=== PATIENT | male | born 1935 | race Caucasian/White ===

== ENCOUNTER 2016-08-20 09:24 | Inpatient (IN) | payer MEDICARE, BC ==
[2016-08-20] MEDS ORDERED: methylPREDNISolone SOD SUCCI 125 MG/2 ML VIAL IV STA (09:39)
[2016-08-20] MEDS ORDERED: ALBUTEROL NEBULIZED 2.5 MG/3 ML INHALATION STA (09:39)
[2016-08-20] MEDS ORDERED: IPRATROPIUM 0.5 MG/2.5 ML NEBU INHALATION STA (09:39)
[2016-08-20] MEDS ORDERED: SODIUM CHLORIDE 0.9% 1,000 ML IV STA (09:39)
[2016-08-20] MEDS ORDERED: SODIUM CHLORIDE 0.9% 500 ML IV STA (09:39)
--- NOTE | 2016-08-20 10:13 | ED ---
General Adult HPI - General Chief complaint: Shortness of Breath Stated complaint: cough,diff breathing Time Seen by Provider: 08/20/16 09:39 Source: patient, RN notes reviewed, old records reviewed Mode of arrival: wheelchair Limitations: no limitations - History of Present Illness Initial comments: This is an 81-year-old male the ER for evaluation of shortness of breath, shortness of cough and congestion. History of angina chest pain COPD. Patient coming in the ER today with increased cough and congestion, denying specific fever. No nausea vomiting diarrhea, no chest or abdominal pain at this time. Patient states symptoms of 2 days progressively worsening with no modifying factors. Patient was sent by his primary care for evaluation of his shortness of breath and patient was hypoxic at primary care office. Patient continues to be short of breath at this time - Related Data Home Medications Medication Instructions Recorded Confirmed Albuterol Nebulized [Ventolin 2.5 mg INHALATION RT-BID 08/20/16 08/20/16 Nebulized] Aspirin EC [Ecotrin Low Dose] 81 mg PO DAILY 08/20/16 08/20/16 Atorvastatin [Lipitor] 80 mg PO DAILY 08/20/16 08/20/16 Cholecalciferol [Vitamin D3] 1,000 unit PO DAILY 08/20/16 08/20/16 Clopidogrel Bisulfate [Plavix] 75 mg PO DAILY 08/20/16 08/20/16 Furosemide [Lasix] 20 mg PO MOWEFR 08/20/16 08/20/16 Ibuprofen [Motrin] 600 mg PO Q6HR PRN 08/20/16 08/20/16 Metoprolol Tartrate [Lopressor] 12.5 mg PO DAILY 08/20/16 08/20/16 Terazosin [Hytrin] 1 mg PO HS 08/20/16 08/20/16 Allergies Allergy/AdvReac Type Severity Reaction Status Date / Time No Known Allergies Allergy Verified 08/20/16 10:57 Review of Systems ROS Statement: Those systems with pertinent positive or pertinent negative responses have been documented in the HPI. ROS Other: All systems not noted in ROS Statement are negative. Past Medical History Past Medical History: Chest Pain / Angina, COPD History of Any Multi-Drug Resistant Organisms: None Reported Past Surgical History: Coronary Bypass/CABG, Heart Catheterization, Heart Catheterization With Stent Past Psychological History: No Psychological Hx Reported Smoking Status: Former smoker Past Alcohol Use History: None Reported Past Drug Use History: None Reported General Exam Limitations: no limitations General appearance: alert, in no apparent distress Head exam: Present: atraumatic, normocephalic, normal inspection Eye exam: Present: normal appearance, PERRL, EOMI. Absent: scleral icterus, conjunctival injection, periorbital swelling ENT exam: Present: normal exam, mucous membranes moist Neck exam: Present: normal inspection. Absent: tenderness, meningismus, lymphadenopathy Respiratory exam: Present: normal lung sounds bilaterally, wheezes, decreased breath sounds, prolonged expiratory. Absent: respiratory distress, rales, rhonchi, stridor Cardiovascular Exam: Present: regular rate, normal rhythm, normal heart sounds. Absent: systolic murmur, diastolic murmur, rubs, gallop, clicks GI/Abdominal exam: Present: soft, normal bowel sounds. Absent: distended, tenderness, guarding, rebound, rigid Extremities exam: Present: normal inspection, full ROM, normal capillary refill. Absent: tenderness, pedal edema, joint swelling, calf tenderness Back exam: Present: normal inspection Neurological exam: Present: alert, oriented X3, CN II-XII intact Psychiatric exam: Present: normal affect, normal mood Skin exam: Present: warm, dry, intact, normal color. Absent: rash Course Vital Signs 08/20/16 08/20/16 08/20/16 09:31 10:16 10:28 Temperature 97.9 F Pulse Rate 95 90 Respiratory 24 22 Rate Blood Pressure 100/58 O2 Sat by Pulse 91 L Oximetry 08/20/16 10:49 Temperature Pulse Rate 92 Respiratory Rate Blood Pressure O2 Sat by Pulse Oximetry EKG Findings - EKG Comments: EKG Findings:: EKG shows normal sinus rhythm rate of 87, SD 126, QRS 126, QTc 445 Medical Decision Making - Lab Data Result diagrams: 08/20/16 10:10 08/20/16 10:10 Lab Results 08/20/16 08/20/16 Range/Units 10:10 10:10 WBC 5.8 (3.8-10.6) k/uL RBC 4.53 (4.30-5.90) m/uL Hgb 13.5 (13.0-17.5) gm/dL Hct 40.4 (39.0-53.0) % MCV 89.2 (80.0-100.0) fL MCH 29.9 (25.0-35.0) pg MCHC 33.5 (31.0-37.0) g/dL RDW 14.8 (11.5-15.5) % Plt Count 123 L (150-450) k/uL Sodium 144 (137-145) mmol/L Potassium 4.1 (3.5-5.1) mmol/L Chloride 103 (98-107) mmol/L Carbon Dioxide 27 (22-30) mmol/L Anion Gap 14 mmol/L BUN 27 H (9-20) mg/dL Creatinine 1.13 (0.66-1.25) mg/dL Est GFR (MDRD) Af Amer >60 (>60 ml/min/1.73 sqM) Est GFR (MDRD) Non-Af >60 (>60 ml/min/1.73 sqM) Glucose 111 H (74-99) mg/dL Calcium 8.8 (8.4-10.2) mg/dL Magnesium 2.1 (1.6-2.3) mg/dL Total Bilirubin 0.9 (0.2-1.3) mg/dL AST 53 (17-59) U/L ALT 26 (21-72) U/L Alkaline Phosphatase 73 (38-126) U/L Total Protein 6.9 (6.3-8.2) g/dL Albumin 3.8 (3.5-5.0) g/dL Disposition Clinical Impression: Acute exacerbation of chronic obstructive airways disease, Hypoxia Disposition: ADMITTED IP TO THIS HOSP Condition: Fair Referrals: Pierre Lamar MD [Primary Care Provider] - 1-2 days
[2016-08-20 11:04] LABS: CH 29.6; CHCM 33.4; HCT 40.4 % (39.0-53.0); HDW 2.78; HGB 13.5 gm/dL (13.0-17.5); Immature Gran Flag Moderate; MCH 29.9 pg (25.0-35.0); MCHC 33.5 g/dL (31.0-37.0); MCV 89.2 fL (80.0-100.0); Mean Platelet Volume 9.3; RBC 4.53 m/uL (4.30-5.90); RDW 14.8 % (11.5-15.5); WBC 5.8 k/uL (3.8-10.6); WBC (Perox) 5.74
[2016-08-20 11:09] LABS: ALT 26 U/L (21-72); AST 53 U/L (17-59); Alkaline Phosphatase 73 U/L (38-126); Anion Gap 14 mmol/L; Blood Urea Nitrogen 27 mg/dL (9-20); Calcium 8.8 mg/dL (8.4-10.2); Carbon Dioxide 27 mmol/L (22-30); Chloride 103 mmol/L (98-107); Glucose 111 mg/dL (74-99); Magnesium 2.1 mg/dL (1.6-2.3); Non-African American GFR(MDRD) >60 (>60 ml/min/1.73 sqM); Potassium 4.1 mmol/L (3.5-5.1); Sodium 144 mmol/L (137-145); Total Bilirubin 0.9 mg/dL (0.2-1.3); Total Protein 6.9 g/dL (6.3-8.2)
[2016-08-20 11:10] LABS: INR 1.1 (<1.1); Prothrombin Time 10.7 sec (9.0-12.0)
--- NOTE | 2016-08-20 11:28 | XR ---
EXAMINATION TYPE: XR chest 2V DATE OF EXAM: 08/20/2016 11:17 AM COMPARISON: Prior chest x-ray October 07, 2015. HISTORY: History of COPD with difficulty in breathing. TECHNIQUE: Frontal and lateral views of the chest are obtained. FINDINGS: Sternal wires are redemonstrated. Cardiac silhouette size is stable and within normal limit s with atherosclerotic change in the aortic knob present. There is chronic emphysematous change with scattered fibrosis and small bilateral pleural effusions redemonstrated. There is persistent bibasila r scarring. No new focal airspace opacity or pneumothorax is seen bilaterally. Left apical pleural th ickening is redemonstrated. Osseous structures are demineralized. IMPRESSION: Chronic emphysematous change with scattered areas of scarring and fibrosis redemonstrate d. No new acute pulmonary process is seen. Stable small bilateral pleural effusions are noted.
[2016-08-20 11:39] LABS: Partial Thromboplastin Time 20.3 sec (22.0-30.0)
[2016-08-20 11:42] LABS: Creatine Kinase MB 1.2 ng/mL (0.0-2.4)
[2016-08-20 11:43] LABS: Add Differential Manual Differential
[2016-08-20 11:45] LABS: Nucleated Red Blood Cells 0 /100 WBC (0-0)
[2016-08-20 11:47] LABS: Total Cells Counted 200
[2016-08-20 11:48] LABS: Toxic Granulation Present
[2016-08-20 11:58] LABS: Troponin I 0.044 ng/mL (0.000-0.034)
[2016-08-20] MEDS: IPRATROPIUM-ALBUTEROL 3 ML NEB INHALATION SCH ×3 (12:22→20:19)
[2016-08-20] MEDS: SODIUM CHLORIDE 0.9% 1,000 ML IV SCH ×2 (13:56→20:23)
[2016-08-20 14:46] VITALS: BMI 21.4
[2016-08-20] MEDS: methylPREDNISolone SOD SUCCI 125 MG/2 ML VIAL IV SCH ×2 (17:42→23:41)
[2016-08-20] MEDS ORDERED: FUROSEMIDE 20 MG TAB PO SCH (20:00)
[2016-08-20] MEDS ORDERED: IBUPROFEN 600 MG TAB PO PRN (20:00)
[2016-08-20] MEDS ORDERED: TEMAZEPAM 15 MG CAP PO PRN (20:01)
[2016-08-20] MEDS ORDERED: ALPRAZolam 0.25 MG TAB PO PRN (20:01)
[2016-08-20 20:26] LABS: Hemoglobin A1C 6.2 % (4.2-6.1)
[2016-08-20] MEDS: CLOPIDOGREL 75 MG TAB PO SCH (20:55)
[2016-08-20] MEDS: METOPROLOL TARTRATE 12.5 MG TAB PO SCH ×2 (20:56→21:07)
[2016-08-20] MEDS: FUROSEMIDE 20 MG TAB PO ONE ×2 (20:56→21:30)
[2016-08-20] MEDS: TERAZOSIN 1 MG CAP PO SCH ×2 (20:57→21:08)
[2016-08-20 21:10] LABS: Glucose,Whole Blood 210 mg/dL (75-99)
[2016-08-20] MEDS: INSULIN LISPRO (humaLOG) 300 UNIT/3 ML VIAL SQ SCH (21:27)
[2016-08-20] MEDS: LEVOFLOXACIN 500MG-D5W PMX 500 MG in DEXTROSE/WATER 1 100ML.BAG IVPB SCH (21:38)
[2016-08-20] MEDS: OSELTAMIVIR 75 MG CAP PO SCH (23:41)
[2016-08-21] MEDS: methylPREDNISolone SOD SUCCI 125 MG/2 ML VIAL IV SCH ×2 (05:22→11:58)
[2016-08-21 07:26] LABS: Glucose,Whole Blood 105 mg/dL (75-99)
[2016-08-21] MEDS: IPRATROPIUM-ALBUTEROL 3 ML NEB INHALATION SCH ×4 (08:13→19:41)
[2016-08-21 08:40] LABS: CH 29.1; CHCM 32.8; HCT 36.7 % (39.0-53.0); HDW 2.84; Immature Gran Flag Marked; MCH 29.2 pg (25.0-35.0); MCHC 32.7 g/dL (31.0-37.0); MCV 89.3 fL (80.0-100.0); Mean Platelet Volume 9.5; RBC 4.11 m/uL (4.30-5.90); RDW 14.6 % (11.5-15.5); WBC 8.1 k/uL (3.8-10.6); WBC (Perox) 8.79
[2016-08-21] MEDS: INSULIN LISPRO (humaLOG) 300 UNIT/3 ML VIAL SQ SCH ×4 (08:56→21:08)
[2016-08-21] MEDS: ENOXAPARIN 40 MG/0.4 ML SYRINGE SQ SCH (08:59)
[2016-08-21] MEDS: ATORVASTATIN 80 MG TAB PO SCH (08:59)
[2016-08-21] MEDS: OSELTAMIVIR 75 MG CAP PO SCH ×2 (08:59→21:07)
[2016-08-21] MEDS: CHOLECALCIFEROL 1,000 UNIT TAB PO SCH (09:00)
[2016-08-21] MEDS: CLOPIDOGREL 75 MG TAB PO SCH (09:00)
[2016-08-21] MEDS: METOPROLOL TARTRATE 12.5 MG TAB PO SCH (09:00)
[2016-08-21] MEDS: PANTOPRAZOLE 40 MG TABLET PO SCH (09:00)
[2016-08-21] MEDS: ASPIRIN 81 MG CHEW PO SCH (09:00)
[2016-08-21 09:02] LABS: Add Differential Manual Differential
[2016-08-21 09:06] LABS: Band Neutrophils % 22.5 %; Manual Review Performed; Myelocytes % 0.5 %; Nucleated Red Blood Cells 0 /100 WBC (0-0); Total Cells Counted 200; Toxic Vacuolation Present
[2016-08-21 09:07] LABS: Toxic Granulation Present
[2016-08-21 09:15] LABS: Anion Gap 12 mmol/L; Blood Urea Nitrogen 21 mg/dL (9-20); Calcium 8.5 mg/dL (8.4-10.2); Carbon Dioxide 25 mmol/L (22-30); Chloride 104 mmol/L (98-107); Glucose 133 mg/dL (74-99); Non-African American GFR(MDRD) >60 (>60 ml/min/1.73 sqM); Potassium 3.5 mmol/L (3.5-5.1); Sodium 141 mmol/L (137-145)
--- NOTE | 2016-08-21 09:53 | HP ---
DATE OF ADMISSION: 08/20/2016 I am covering for Dr. Lamar. HISTORY OF PRESENT ILLNESS: This 81-year-old gentleman with past medical history of multiple medical problems including history of atrial fibrillation, CAD, COPD, history of chest pain, history of hyperlipidemia, history of prostate disorder, history of hard of hearing, history of CAD/CABG, history of hernia surgery, prostate surgery, being followed by Dr. Pierre Lamar in the outpatient setting was complaining of shortness of breath and cough for the past several days. The patient had a cough and congestion and patient also did not have any fever. No nausea, vomiting, and abdominal pain. Because of increasing difficulty, the patient came to [facility] and thought to have chronic obstructive pulmonary disease, acute exacerbation. The chest x-ray showed chronic emphysematous scarring and fibrosis, no acute process or pneumonia was identified. EKG on admission showed right bundle branch block. There is no history of any fever, rigors or chills. No history of headache, loss of consciousness or seizures. PAST MEDICAL HISTORY: History of COPD, history of chest pain, CAD, atrial fibrillation, hyperlipidemia, history of prostate disorder. Medications prior to admission include: 1. Hytrin 1 mg p.o. at bedtime. 2. Lopressor 12.5 mg p.o. daily. 3. Plavix 75 milligrams p.o. daily. 4. Vitamin D3 1000 daily. 5. Lipitor 80 mg p.o. daily. 6. Ecotrin 81 mg p.o. daily. 7. Ventolin 2.5 b.i.d. 8. Motrin 600 mg q.6h p.r.n. 9. Lasix 20 mg Tuesday, Tuesday, Tuesday. ALLERGIES: None. FAMILY HISTORY: History of diabetes mellitus, myocardial infarction in the family. SOCIAL HISTORY: Previous history of smoking. No history of alcohol intake. REVIEW OF SYSTEMS: ENT: No diminished vision. No diminished hearing. CARDIOVASCULAR: No angina or palpitations. GASTROINTESTINAL: No nausea or vomiting. GENITOURINARY: No dysuria. CENTRAL NERVOUS SYSTEM: No numbness or weakness. ALLERGY/IMMUNOLOGY: No asthma or hayfever. MUSCULOSKELETAL: As mentioned earlier. RHEUMATOLOGY/ONCOLOGY: No history of anemia. ENDOCRINE: No history of diabetes or hypothyroidism. CONSTITUTIONAL: As mentioned earlier. DERMATOLOGY: Negative. RHEUMATOLOGY: Negative. PSYCHIATRY :As mentioned earlier. PHYSICAL EXAMINATION: the patient is alert and oriented times three. Pulse is 84, blood pressure 93/52, respiration 16. temperature 97.1. Pulse ox 94% on room air. HEENT: Conjunctivae normal. Oral mucosa moist. NECK: No jugular venous distention. No thyroid enlargement. No carotid bruit. CARDIOVASCULAR: S1, S2 muffled. No S3, no S4. RESPIRATORY: Breath sounds diminished at the bases. Bilateral scattered rhonchi and crackles. Expiratory wheezing and expiratory prolongation also present. No bronchial breath sounds. ABDOMEN: Soft, nontender. No mass palpable. LEGS: No edema. No swelling. Nervous system: Higher functions as mentioned earlier. Moves all four limbs. No focal deficits. LYMPHATICS: No lymph nodes palpable in the neck, axillae or groin. SKIN: No ulcer, rash or bleeding. LABS: Platelets 123. Otherwise, glucose 111, troponin 0.044, and 0.052. ASSESSMENT: 1. Chronic obstructive pulmonary disease, acute exacerbation with acute purulent tracheobronchitis with no evidence of acute pneumonia. 2. Thrombocytopenia. 3. Troponin 0.05, indeterminate, rule out acute non- ST segment elevation myocardial infarction and coronary artery syndrome. 4. Increased creatinine kinase. 5. History of atrial fibrillation. 6. History of coronary artery disease. 7. History of chronic obstructive pulmonary disease. 8. Hyperlipidemia. 9. History of prostate disorder. 10. History of hard of hearing. 11. History of asbestos exposure. 12. History of epistaxis. 13. History of ischemic cardiomyopathy. 14. History of benign prostatic hypertrophy. 15. History urinary tract infection. 16. History of hypotension. 17. History of coronary artery disease, coronary artery bypass grafting. 18. History of inguinal hernia repair. 19. Remote history nicotine dependence. RECOMMENDATIONS AND DISCUSSION: In this 81-year-old gentleman who presented with multiple complex medical issues, we will monitor the patient closely. Continue the current medications. Continue symptomatic treatment. Otherwise, at this time I would recommend continuing the bronchodilators. Continue with empiric antibiotics and IV steroids. Pulmonary consultation. Guarded prognosis because of multiple complex medical issues. Further recommendations to follow. See orders for further details. Copy of dictation forwarded to Dr. Pierre Lamar who is the primary physician.
[2016-08-21 11:51] LABS: Glucose,Whole Blood 120 mg/dL (75-99)
[2016-08-21] MEDS: MULTIVITAMINS, THERA 1 EACH TAB PO SCH (11:58)
--- NOTE | 2016-08-21 12:42 | P.CNPUL ---
History of Present Illness Consult date: 08/21/16 Requesting physician: Liz Dillard Reason for consult: dyspnea Chief complaint: Shortness of breath History of present illness: This is a very pleasant 81-year-old gentleman who follows with Dr. Pierre Lamar as his primary care physician. He has a past medical history of coronary artery disease with previous coronary artery bypass grafting and stent placements, ischemic cardiomyopathy, hypertension, hyperlipidemia and benign prostatic hypertrophy. He also has a history of asbestos exposure, chronic obstructive pulmonary disease from previous chronic tobacco use and follows with Dr. Chester in our office for the same. He is not oxygen dependent. He utilizes albuterol nebulized treatments. he presented here yesterday after being seen by his PCP with complaints of increasing shortness of breath over the past week. He was found to be hypoxic and referred to the emergency room. He was seen and evaluated and subsequently admitted for COPD exacerbation. He is seen today in consultation on the regular medical floor. He is awake and alert in no acute distress. He did test positive for influenza A. His chest x- ray did not reveal any acute pulmonary process, there is some chronic fibrotic changes and stable small pleural effusions. He's been afebrile. No leukocytosis. He is maintaining good O2 saturations in the upper 90s on 3 L/m per nasal cannula. He has been hemodynamically stable. Review of Systems 14 point review of system was conducted. All negative other than as mentioned the HPI. Past Medical History Past Medical History: Atrial Fibrillation, Coronary Artery Disease (CAD), Chest Pain / Angina, COPD, Hyperlipidemia, Prostate Disorder Additional Past Medical History / Comment(s): Pt is very [place]-daughter is concerned because pt will smile and nod his head yes if he doesn't hear you. Other hx: Asbestos exposure, epistaxis with acute blood loss anemia, ishemic cardiomyopathy, BPH with surgery, UTI, hypotension. History of Any Multi-Drug Resistant Organisms: None Reported Past Surgical History: Coronary Bypass/CABG, Heart Catheterization, Hernia Repair, Prostate Surgery Additional Past Surgical History / Comment(s): CABG about 10 yrs ago in [place], [place], L leg surgery to repair d/t trauma, R inguinal hernia repair, colonoscopy. Past Anesthesia/Blood Transfusion Reactions: Postoperative Nausea & Vomiting ( PONV) Past Psychological History: No Psychological Hx Reported Additional Psychological History / Comment(s): Pt resides with his daughter and her spouse. He can walk short distances, but for long distances he uses a wheelchair. His daughter is helpful. Pt drives but short, familiar distances. Pt manages his own medications. Smoking Status: Former smoker Past Alcohol Use History: None Reported Additional Past Alcohol Use History / Comment(s): Pt started smoking in 1968 and quit in 2006. Past Drug Use History: None Reported - Past Family History Father Family Medical History: Diabetes Mellitus, Myocardial Infarction (MD) Additional Family Medical History / Comment(s): Father of a MD at the age of about 70 yrs. Mother Family Medical History: No Reported History Additional Family Medical History / Comment(s): Mother lived to be 80yrs old. Medications and Allergies Home Medications Medication Instructions Recorded Confirmed Type Albuterol Nebulized [Ventolin 2.5 mg INHALATION RT-BID 08/20/16 08/20/16 History Nebulized] Aspirin EC [Ecotrin Low Dose] 81 mg PO DAILY 08/20/16 08/20/16 History Atorvastatin [Lipitor] 80 mg PO DAILY 08/20/16 08/20/16 History Cholecalciferol [Vitamin D3] 1,000 unit PO DAILY 08/20/16 08/20/16 History Clopidogrel Bisulfate [Plavix] 75 mg PO DAILY 08/20/16 08/20/16 History Furosemide [Lasix] 20 mg PO MOWEFR 08/20/16 08/20/16 History Ibuprofen [Motrin] 600 mg PO Q6HR PRN 08/20/16 08/20/16 History Metoprolol Tartrate [Lopressor] 12.5 mg PO DAILY 08/20/16 08/20/16 History Terazosin [Hytrin] 1 mg PO HS 08/20/16 08/20/16 History Allergies Allergy/AdvReac Type Severity Reaction Status Date / Time No Known Allergies Allergy Verified 08/20/16 10:57 Physical Exam Vitals: Vital Signs Temp Pulse Pulse Pulse Resp BP Pulse Ox 08/21/16 12:15 80 08/21/16 12:04 72 08/21/16 07:00 97.0 F L 64 18 112/58 97 08/20/16 23:00 97.8 F 84 16 101/66 97 08/20/16 21:05 98.1 F 86 20 110/58 95 08/20/16 20:31 90 08/20/16 20:19 88 08/20/16 18:28 21 08/20/16 16:31 86 08/20/16 16:17 86 08/20/16 15:00 97.1 F L 84 16 93/52 95 Intake and Output 08/20/16 08/21/16 08/21/16 22:59 06:59 14:59 Intake Total 200 Balance 200 Intake: Oral 200 Other: Voiding Method Toilet Toilet Toilet # Voids 1 2 GENERAL EXAM: Alert, comfortable in no apparent distress. HEAD: Normocephalic. EYES: Normal reaction of pupils, equal size. NOSE: Clear with pink turbinates. THROAT: No erythema or exudates. NECK: No masses, no JVD. CHEST: No chest wall deformity. LUNGS: Equal air entry with no crackles, wheeze, rhonchi or dullness. Diminished. CVS: S1 and S2 normal with an audible mumur, regular rhythm. ABDOMEN: No hepatosplenomegaly, normal bowel sounds, no guarding or rigidity. SPINE: No scoliosis or deformity SKIN: No rashes CENTRAL NERVOUS SYSTEM: No focal deficits, tone is normal in all 4 extremities. Extremities: There is no significant peripheral edema. No clubbing, no cyanosis. Peripheral pulses are intact. Results - Laboratory Findings CBC and BMP: 08/21/16 08:10 08/21/16 08:10 PT/INR, D-dimer PT 10.7 sec (9.0-12.0) 08/20/16 10:10 INR 1.1 (<1.1) 08/20/16 10:10 Abnormal lab findings: Abnormal Labs 08/20/16 08/20/16 08/20/16 16:02 20:02 21:05 RBC Hgb Hct Plt Count Lymphocytes # (Manual) BUN Glucose POC Glucose (mg/dL) 210 H Hemoglobin A1c 6.2 H Troponin I 0.052 H* Influenza Type A RNA 08/20/16 08/21/16 08/21/16 21:30 07:23 08:10 RBC 4.11 L Hgb 12.0 L Hct 36.7 L Plt Count 122 L Lymphocytes # (Manual) 0.2 L BUN Glucose POC Glucose (mg/dL) 105 H Hemoglobin A1c Troponin I Influenza Type A RNA Detected H 08/21/16 08/21/16 08:10 11:42 RBC Hgb Hct Plt Count Lymphocytes # (Manual) BUN 21 H Glucose 133 H POC Glucose (mg/dL) 120 H Hemoglobin A1c Troponin I Influenza Type A RNA - Diagnostic Findings Chest x-ray: image reviewed Assessment and Plan Plan: Impression: #1 Acute exacerbation of chronic obstructive pulmonary disease, complicated by influenza A. #2 History of chronic tobacco dependence. #3 History of his pestis exposure. #4 Coronary artery disease with previous coronary artery bypass grafting and stent placements. #5 Ischemic cardiomyopathy. #6 Hypertension. #7 Hyperlipidemia. #8 Benign prostatic hypertrophy. Plan: The patient was seen and evaluated by Dr. Chester. His chest x-ray and labs were reviewed. We'll continue with the patient's current medications including bronchodilators 4 times a day and when necessary, IV Solu-Medrol, empiric antibiotics in the form of Levaquin. He is also on Tamiflu 75 mg twice a day 5 days. He is on Lovenox for DVT prophylaxis and Protonix for GI prophylaxis. We will increase his activity as tolerated. We'll continue to follow.
[2016-08-21] MEDS: methylPREDNISolone SOD SUCCI 40 MG/ML 1 ML VIAL IV SCH ×2 (15:56→23:14)
[2016-08-21 18:09] LABS: Glucose,Whole Blood 160 mg/dL (75-99)
[2016-08-21] MEDS: TERAZOSIN 1 MG CAP PO SCH (21:07)
[2016-08-21] MEDS: LEVOFLOXACIN 500MG-D5W PMX 500 MG in DEXTROSE/WATER 1 100ML.BAG IVPB SCH (21:07)
[2016-08-21 21:10] LABS: Glucose,Whole Blood 162 mg/dL (75-99)
[2016-08-22 07:20] LABS: Glucose,Whole Blood 136 mg/dL (75-99)
[2016-08-22] MEDS: INSULIN LISPRO (humaLOG) 300 UNIT/3 ML VIAL SQ SCH ×4 (07:46→21:34)
[2016-08-22] MEDS: OSELTAMIVIR 75 MG CAP PO SCH ×2 (07:47→21:34)
[2016-08-22] MEDS: methylPREDNISolone SOD SUCCI 40 MG/ML 1 ML VIAL IV SCH ×3 (07:47→23:22)
[2016-08-22] MEDS: ENOXAPARIN 40 MG/0.4 ML SYRINGE SQ SCH (07:47)
[2016-08-22] MEDS: METOPROLOL TARTRATE 12.5 MG TAB PO SCH (07:47)
[2016-08-22] MEDS: ASPIRIN 81 MG CHEW PO SCH (07:48)
[2016-08-22] MEDS: CLOPIDOGREL 75 MG TAB PO SCH (07:48)
[2016-08-22] MEDS: CHOLECALCIFEROL 1,000 UNIT TAB PO SCH (07:48)
[2016-08-22] MEDS: PANTOPRAZOLE 40 MG TABLET PO SCH (07:48)
[2016-08-22] MEDS: ATORVASTATIN 80 MG TAB PO SCH (07:48)
[2016-08-22 09:36] LABS: Basophils % (A) 0 %; CH 28.8; CHCM 32.4; Eosinophils % (A) 0 %; HCT 34.7 % (39.0-53.0); HDW 2.85; HGB 11.3 gm/dL (13.0-17.5); Luc # (Auto) 0.09; Luc % (Auto) 1; Lymphocytes # (A) 0.3 k/uL (1.0-4.8); Lymphocytes % (A) 3 %; MCH 29.1 pg (25.0-35.0); MCHC 32.5 g/dL (31.0-37.0); MCV 89.4 fL (80.0-100.0); Mean Platelet Volume 8.6; Monocytes # (A) 0.2 k/uL (0-1.0); Monocytes % (A) 2 %; Neutrophils # (A) 9.6 k/uL (1.3-7.7); Neutrophils % (A) 94 %; RBC 3.88 m/uL (4.30-5.90); RDW 14.6 % (11.5-15.5); WBC 10.2 k/uL (3.8-10.6); WBC (Perox) 11.12
[2016-08-22 10:03] LABS: Anion Gap 10 mmol/L; Blood Urea Nitrogen 19 mg/dL (9-20); Calcium 8.3 mg/dL (8.4-10.2); Carbon Dioxide 24 mmol/L (22-30); Chloride 106 mmol/L (98-107); Glucose 153 mg/dL (74-99); Non-African American GFR(MDRD) >60 (>60 ml/min/1.73 sqM); Potassium 3.6 mmol/L (3.5-5.1); Sodium 140 mmol/L (137-145)
--- NOTE | 2016-08-22 10:51 | PN ---
DATE OF SERVICE: 08/21/2016 I am covering for Dr. Lamra. This 81-year-old gentleman admitted with COPD acute exacerbation as well as purulent tracheobronchitis, also had acute influenza A positive. The patient also had an elevated creatinine kinase. pleuritic. The patient was started on multiple medications as well as IV steroids also. The IV steroids have been tapered off at this time. The patient also had features also had features of COPD exacerbation. PAST MEDICAL HISTORY: Reviewed. REVIEW OF SYSTEMS: CARDIOVASCULAR: No angina or palpitations. RESPIRATORY: As mentioned earlier. GI: As mentioned. : As mentioned. NERVOUS SYSTEM: No numbness, tingling or weakness. Current medications are reviewed and include: 1. DuoNeb q.i.d. and p.r.n. 2. Xanax 0.25 t.i.d. 3. Aspirin 81 mg. 4. Lipitor 80 mg daily. 5. Vitamin D, 3000 units. 6. Plavix 10 mg daily. 7. Lovenox 40 Lasix subcu daily. 8. Lasix 20 mg Tuesday, Tuesday, Tuesday. 9. Motrin 600 mg every 6 p.r.n. 10. Humalog scale. 11. Levaquin 500 mg p.o. daily. 12. Solumedrol 40 IV every 8. 13. Lopressor 12.5 mg daily. 14. Tamiflu 70 mg p.o. b.i.d. 15. Protonix 40 mg daily. 16. Restoril. 17. Hytrin. At this time the patient is alert, oriented x3. Pulse is 84, blood pressure 93/52, respirations 16, temperature 97, pulse ox 94% on room air. HEENT: Conjunctivae normal. HEART: S1 and S2 muffled. LUNGS: Breath sounds diminished at the bases. Breathing effort somewhat increased. Bilateral scattered rhonchi and crackles. ABDOMEN: Soft, nontender. No masses palpable. NERVOUS SYSTEM: No focal deficits. LABS: WBC ntd, hemoglobin is 12. Other labs are noted. ASSESSMENT: 1. Chronic obstructive pulmonary disease, acute exacerbation, with acute purulent tracheobronchitis with acute influenza A positive. 2. Thrombocytopenia. 3. Troponin 0.05, indeterminate, rule out acute non-ST segment myocardial infarction and coronary syndrome. 4. Increased creatinine kinase. 5. History of atrial fibrillation. 6. Congestive heart failure. 7. Chronic obstructive pulmonary disease. 8. Hyperlipidemia. 9. History of prostate disorder. 10. History of hard of hearing. 11. History of asbestos exposure. 12. History of epistaxis. 13. History of ischemic cardiomyopathy. 14. Benign prostatic hypertrophy. 15. History of urinary tract infection. 16. History of hypertension. 17. History of coronary artery disease, coronary artery bypass grafting. 18. Hernia repair. 19. Remote history of nicotine dependence. 20. FULL CODE. RECOMMENDATIONS AND DISCUSSION: Recommended continue current medications and continue with bronchodilators. Taper the steroids. Continue with empiric antibiotics and antivirals. The patient is on Tamiflu at this time. Await full cardiology evaluation also. Recommend to continue the home medications. The troponin has come down at this time. Continue the cardiac medications. Prognosis guarded. Discussed with family who understand. Further recommendations to follow. MTDD
[2016-08-22 12:13] LABS: Glucose,Whole Blood 115 mg/dL (75-99)
[2016-08-22] MEDS: IPRATROPIUM-ALBUTEROL 3 ML NEB INHALATION SCH ×4 (12:18→19:50)
[2016-08-22] MEDS: MULTIVITAMINS, THERA 1 EACH TAB PO SCH (12:28)
[2016-08-22] MEDS: SODIUM CHLORIDE 0.9% 1,000 ML IV SCH (12:34)
--- NOTE | 2016-08-22 13:13 | P.PN ---
Subjective Principal diagnosis: Acute exacerbation of COPD, worsened by recent influenza A infection. This is a very pleasant 81-year-old gentleman who follows with Dr. Pierre Lamar as his primary care physician. He has a past medical history of coronary artery disease with previous coronary artery bypass grafting and stent placements, ischemic cardiomyopathy, hypertension, hyperlipidemia and benign prostatic hypertrophy. He also has a history of asbestos exposure, chronic obstructive pulmonary disease from previous chronic tobacco use and follows with Dr. Chester in our office for the same. He is not oxygen dependent. He utilizes albuterol nebulized treatments. he presented here yesterday after being seen by his PCP with complaints of increasing shortness of breath over the past week. He was found to be hypoxic and referred to the emergency room. He was seen and evaluated and subsequently admitted for COPD exacerbation. He is seen today in consultation on the regular medical floor. He is awake and alert in no acute distress. He did test positive for influenza A. His chest x- ray did not reveal any acute pulmonary process, there is some chronic fibrotic changes and stable small pleural effusions. He's been afebrile. No leukocytosis. He is maintaining good O2 saturations in the upper 90s on 3 L/m per nasal cannula. He has been hemodynamically stable. Patient was reevaluated today on 08/22/2016, seems to be doing much better, breathing a lot easier, patient is excited to be discharged home hopefully today or tomorrow. Chest x-ray on admission showed chronic scarring and fibrotic changes, nonspecific. There was no evidence of acute or active infiltrate. Objective - Vital Signs Vital signs: Vital Signs Temp 97 F L 08/22/16 07:00 Pulse 84 08/22/16 12:29 Resp 20 08/22/16 07:00 BP 116/62 08/22/16 07:00 Pulse Ox 97 08/22/16 07:00 Intake & Output 08/21/16 08/22/16 08/22/16 18:59 06:59 18:59 Output Total 700 Balance -700 Output: Urine 700 Other: Voiding Method Toilet Toilet Toilet # Voids 3 1 1 - Exam GENERAL EXAM: Alert, comfortable in no apparent distress. HEAD: Normocephalic. EYES: Normal reaction of pupils, equal size. NOSE: Clear with pink turbinates. THROAT: No erythema or exudates. NECK: No masses, no JVD. CHEST: No chest wall deformity. LUNGS: Equal air entry with no crackles, wheeze, rhonchi or dullness. Diminished. CVS: S1 and S2 normal with an audible mumur, regular rhythm. ABDOMEN: No hepatosplenomegaly, normal bowel sounds, no guarding or rigidity. SPINE: No scoliosis or deformity SKIN: No rashes CENTRAL NERVOUS SYSTEM: No focal deficits, tone is normal in all 4 extremities. Extremities: There is no significant peripheral edema. No clubbing, no cyanosis. Peripheral pulses are intact. - Labs CBC & Chem 7: 08/22/16 09:08 08/22/16 09:08 Labs: Abnormal Lab Results - Last 24 Hours (Table) 08/21/16 08/21/16 08/22/16 Range/Units 18:07 21:08 07:10 RBC (4.30-5.90) m/uL Hgb (13.0-17.5) gm/dL Hct (39.0-53.0) % Plt Count (150-450) k/uL Neutrophils # (1.3-7.7) k/uL Lymphocytes # (1.0-4.8) k/uL Glucose (74-99) mg/dL POC Glucose (mg/dL) 160 H 162 H 136 H (75-99) mg/dL Calcium (8.4-10.2) mg/dL 08/22/16 08/22/16 08/22/16 Range/Units 09:08 09:08 12:08 RBC 3.88 L (4.30-5.90) m/uL Hgb 11.3 L (13.0-17.5) gm/dL Hct 34.7 L (39.0-53.0) % Plt Count 137 L (150-450) k/uL Neutrophils # 9.6 H (1.3-7.7) k/uL Lymphocytes # 0.3 L (1.0-4.8) k/uL Glucose 153 H (74-99) mg/dL POC Glucose (mg/dL) 115 H (75-99) mg/dL Calcium 8.3 L (8.4-10.2) mg/dL Assessment and Plan Plan: #1 Acute exacerbation of chronic obstructive pulmonary disease, complicated by influenza A. #2 History of chronic tobacco dependence. #3 History of his pestis exposure. #4 Coronary artery disease with previous coronary artery bypass grafting and stent placements. #5 Ischemic cardiomyopathy. #6 Hypertension. #7 Hyperlipidemia. #8 Benign prostatic hypertrophy. Recommendation: Continue present treatment plan, for course of Tamiflu for 5 days total, continue bronchodilators, and his usual COPD medications, consider discharge planning today or in the next 24 hours. Follow-up on outpatient basis. Time with Patient: Less than 30
[2016-08-22 17:33] LABS: Glucose,Whole Blood 216 mg/dL (75-99)
--- NOTE | 2016-08-22 20:07 | PN ---
DATE OF SERVICE: 08/22/2016 I am covering for Dr. Pierre Lamar. This 81 -year-old gentleman was admitted to the hospital with COPD acute exacerbation also had influenza positive. The patient being closely monitored. No chest pain. No palpitations. Short of breath with cough. On exam alert and oriented times three. Pulse 83, blood pressure 120/69, respiratory rate 17, temperature 97.4, pulse ox 97% on room air. HEENT: Conjunctivae normal. NECK: No jugular venous distention. CARDIOVASCULAR: S1, S2 muffled. RESPIRATORY: Breath sounds diminished at the bases. A few scattered rhonchi and crackles. Expiratory wheezing also present. ABDOMEN: Soft. Nontender. LEGS: No edema. No swelling. CENTRAL NERVOUS SYSTEM: No focal deficits. LABS: WBC 10.2, hemoglobin 11.3. ASSESSMENT: 1. Chronic obstructive pulmonary disease, acute exacerbation, with acute purulent bronchitis with acute influenza positive. 2. Thrombocytopenia. 3. Troponin 0.05, indeterminate, improved, acute coronary syndrome unlikely. 4. Increased creatinine kinase. 5. History of atrial fibrillation. 6. History of congestive heart failure, ejection fraction unknown. 7. Chronic obstructive pulmonary disease. 8. Hyperlipidemia. 9. History of prostate disorder. 10. History of hard of hearing. 11. History of asbestos exposure. 12. History of epistaxis. 13. Ischemic cardiomyopathy. 14. Benign prostatic hypertrophy. 15. History of urinary tract infection. 16. History of hypertension. 17. History of coronary artery disease, coronary artery bypass grafting. 18. Hernia repair. 19. Remote history of nicotine dependence. 20. FULL CODE. RECOMMENDATIONS AND DISCUSSION: In this 81-year-old gentleman who presented with multiple complex medical issues, I would recommend to continue the current medications and continue symptomatic treatment. Otherwise, at this time, I would continue with antivirals, taper the steroids. Closely follow with Dr. Chester. Further recommendations to follow.
[2016-08-22] MEDS ORDERED: LEVOFLOXACIN 500 MG TAB PO SCH (21:00)
[2016-08-22 21:30] LABS: Glucose,Whole Blood 182 mg/dL (75-99)
[2016-08-22] MEDS: TERAZOSIN 1 MG CAP PO SCH (21:34)
[2016-08-23 05:11] LABS: Glucose,Whole Blood 168 mg/dL (75-99)
[2016-08-23] MEDS: IPRATROPIUM-ALBUTEROL 3 ML NEB INHALATION SCH ×3 (07:23→15:49)
[2016-08-23] MEDS: INSULIN LISPRO (humaLOG) 300 UNIT/3 ML VIAL SQ SCH ×2 (07:59→11:49)
[2016-08-23 08:00] LABS: Glucose,Whole Blood 104 mg/dL (75-99)
[2016-08-23] MEDS: CHOLECALCIFEROL 1,000 UNIT TAB PO SCH (08:05)
[2016-08-23] MEDS: ATORVASTATIN 80 MG TAB PO SCH (08:05)
[2016-08-23] MEDS: PANTOPRAZOLE 40 MG TABLET PO SCH (08:05)
[2016-08-23] MEDS: ASPIRIN 81 MG CHEW PO SCH (08:05)
[2016-08-23] MEDS: methylPREDNISolone SOD SUCCI 40 MG/ML 1 ML VIAL IV SCH (08:05)
[2016-08-23] MEDS: OSELTAMIVIR 75 MG CAP PO SCH (08:06)
[2016-08-23] MEDS: CLOPIDOGREL 75 MG TAB PO SCH (08:06)
[2016-08-23] MEDS: ENOXAPARIN 40 MG/0.4 ML SYRINGE SQ SCH (08:06)
[2016-08-23] MEDS: METOPROLOL TARTRATE 12.5 MG TAB PO SCH (08:06)
[2016-08-23] MEDS ORDERED: FUROSEMIDE 20 MG TAB PO SCH (09:00)
[2016-08-23 09:25] LABS: Basophils % (A) 0 %; CH 28.7; CHCM 32.6; Eosinophils % (A) 0 %; HDW 2.92; HGB 11.1 gm/dL (13.0-17.5); Luc # (Auto) 0.16; Luc % (Auto) 1; Lymphocytes # (A) 0.5 k/uL (1.0-4.8); Lymphocytes % (A) 4 %; MCHC 31.6 g/dL (31.0-37.0); MCV 88.5 fL (80.0-100.0); Mean Platelet Volume 8.4; Monocytes # (A) 0.4 k/uL (0-1.0); Monocytes % (A) 3 %; Neutrophils # (A) 11.4 k/uL (1.3-7.7); Neutrophils % (A) 92 %; RBC 3.95 m/uL (4.30-5.90); RDW 14.5 % (11.5-15.5); WBC 12.4 k/uL (3.8-10.6); WBC (Perox) 13.48
[2016-08-23 09:35] LABS: Anion Gap 11 mmol/L; Blood Urea Nitrogen 21 mg/dL (9-20); Calcium 8.4 mg/dL (8.4-10.2); Carbon Dioxide 24 mmol/L (22-30); Chloride 105 mmol/L (98-107); Glucose 109 mg/dL (74-99); Non-African American GFR(MDRD) >60 (>60 ml/min/1.73 sqM); Potassium 3.8 mmol/L (3.5-5.1); Sodium 140 mmol/L (137-145)
--- NOTE | 2016-08-23 10:29 | P.PN ---
Subjective Progress note dated 08/23/2016 The patient seemed to do much better. Possible discharge home soon. He is 81. His primary is Dr. Pierre Lamar. States he is having minimal shortness of breath mostly when he exerts himself. Minimal dry cough. No fever no chills. No chest pain. No nausea vomiting or diarrhea. He appears to be wanting to be discharged home. Objective - Vital Signs Vital signs: Vital Signs Temp 97.5 F L 08/23/16 08:04 Pulse 84 08/23/16 08:05 Resp 20 08/23/16 08:04 BP 101/62 08/23/16 08:04 Pulse Ox 96 08/23/16 08:04 Intake & Output 08/22/16 08/23/16 08/23/16 18:59 06:59 18:59 Other: Voiding Method Toilet Toilet Toilet # Voids 3 1 - Exam No acute distress, oriented 3. HEENT examination is grossly unremarkable. Mucous membranes are moist. No oral lesions. Neck supple. Full range of motion. No adenopathy or thyromegaly. Cardiovascular examination reveals regular rhythm rate. S1-S2 normal. Lungs reveal few scattered rhonchi. Breath sounds diminished. No wheezes. Abdomen soft bowel sounds are heard. Extremities are intact. - Labs CBC & Chem 7: 08/23/16 08:42 08/23/16 08:42 Labs: Abnormal Lab Results - Last 24 Hours (Table) 08/21/16 08/22/16 08/22/16 Range/Units 17:04 09:08 12:08 WBC (3.8-10.6) k/uL RBC (4.30-5.90) m/uL Hgb (13.0-17.5) gm/dL Hct (39.0-53.0) % Neutrophils # (1.3-7.7) k/uL Lymphocytes # (1.0-4.8) k/uL BUN (9-20) mg/dL Glucose 153 H (74-99) mg/dL POC Glucose (mg/dL) 168 H 115 H (75-99) mg/dL Calcium 8.3 L (8.4-10.2) mg/dL 08/22/16 08/22/16 08/23/16 Range/Units 17:27 21:27 07:58 WBC (3.8-10.6) k/uL RBC (4.30-5.90) m/uL Hgb (13.0-17.5) gm/dL Hct (39.0-53.0) % Neutrophils # (1.3-7.7) k/uL Lymphocytes # (1.0-4.8) k/uL BUN (9-20) mg/dL Glucose (74-99) mg/dL POC Glucose (mg/dL) 216 H 182 H 104 H (75-99) mg/dL Calcium (8.4-10.2) mg/dL 08/23/16 08/23/16 Range/Units 08:42 08:42 WBC 12.4 H (3.8-10.6) k/uL RBC 3.95 L (4.30-5.90) m/uL Hgb 11.1 L (13.0-17.5) gm/dL Hct 35.0 L (39.0-53.0) % Neutrophils # 11.4 H (1.3-7.7) k/uL Lymphocytes # 0.5 L (1.0-4.8) k/uL BUN 21 H (9-20) mg/dL Glucose 109 H (74-99) mg/dL POC Glucose (mg/dL) (75-99) mg/dL Calcium (8.4-10.2) mg/dL Assessment and Plan (1) Acute exacerbation of chronic obstructive airways disease Status: Acute (2) Hypoxia Status: Acute Plan: Plan dated 08/23/2016 The patient seemed be doing relatively well. Was admitted with a diagnosis of COPD exacerbation complicated by influenza A. He has a history of chronic tobacco dependence and a history of CAD and ischemic cardiomyopathy. The patient seemed be wanting to be discharged home. We'll leave that up to the primary service. No additional recommendations are made. We'll continue to follow. Time with Patient: Less than 30
[2016-08-23 11:26] LABS: Glucose,Whole Blood 128 mg/dL (75-99)
[2016-08-23] MEDS: MULTIVITAMINS, THERA 1 EACH TAB PO SCH (11:52)
[2016-08-23] MEDS: SODIUM CHLORIDE 0.9% 1,000 ML IV SCH (11:52)
[2016-08-23 16:26] VITALS: BP 103/64; PULSE 78; RESP 18; TEMP 96.5
--- NOTE | 2016-08-23 17:22 | CONS ---
DATE OF CONSULTATION: Mr. Baker is an 81-year-old male who presented with symptoms of progressive dyspnea. Cardiology consultation was requested because of troponin elevation. Reviewing the records there is a note to say that the patient had a prior history of percutaneous revascularization, history of ischemic cardiomyopathy, although the patient denies any cardiac history. He presented with symptoms of progressive dyspnea on exertion with cough and weakness. He was diagnosed on admission to having influenza A with exacerbation of chronic obstructive pulmonary disease. Patient denies any symptoms of chest pain. He denies any dizziness or palpitation. He is feeling fatigued. He denies any PND, orthopnea. No peripheral edema. No syncope. He has a known history of chronic obstructive lung disease, but he is not on home O2. He has stopped smoking about 20 years ago. His coronary risk factors are remarkable for history of hypertension, hyperlipidemia. He is a nondiabetic. His medications include: 1. Protonix. 2. Prednisone. 3. Lasix 5 times a week. 4. Ibuprofen. 5. Ventolin. 6. Aspirin 81 mg daily. 7. Lipitor 80 mg daily. 8. Plavix 75 mg daily. 9. Metoprolol titrate 12.5 mg daily. 10. Hytrin. REVIEW OF SYSTEMS: RESPIRATORY SYSTEM: He has a history of chronic obstructive lung disease with chronic dyspnea on exertion. GI system: He has no recent history of GI bleeding. No peptic ulcer disease. system: No dysuria or hematuria. Nervous system: No history of stroke or seizure. PHYSICAL EXAMINATION: He is an 81-year-old male, alert, oriented, in no apparent distress. Blood pressure 101/60 with a heart rate in the 80s, afebrile. HEAD: Normocephalic. EYES: Sclerae anicteric. NECK: Good upstroke. No bruit. LUNGS: With severe decreased air exchange. No wheezes. HEART: Regular rate and rhythm. S1, S2, no S3, with a systolic murmur heard at the base. No diastolic murmur. No rub. ABDOMEN: Soft, nontender, positive bowel sounds. No organomegaly. EXTREMITIES: No edema, plus 1 distal pulses. EKG reveals sinus mechanism with a rate of 87, right bundle branch block, left anterior fascicular block. Lab data revealed BUN and creatinine 28 and 0.8. Potassium 3.8. Hemoglobin of 11.1, white blood cells count 12.4, on admission his white blood cell was 5.8. His troponin 0.044, 0.052 and subsequently 0.023. His NT-proBNP is 1070. He was influenza A positive. Chest x-ray revealed changes of emphysema and fibrosis. IMPRESSION: 1. Exacerbation of chronic obstructive pulmonary disease in a patient was known history of chronic obstructive lung disease and influenza A. 2. Minimal elevation of troponin does not represent any primary event most likely related to hypoxemia and chronic obstructive pulmonary disease. 3. History of ischemic cardiomyopathy per records and prior percutaneous revascularization. 4. Hypertension. 5. Hyperlipidemia. RECOMMENDATIONS: From the cardiac standpoint, I see no evidence for active ischemic issue. I will obtain echocardiogram with Doppler. If the patient is stable, he should be able to be discharged home soon and follow as an outpatient. Thank you for this consult. We will follow with you.
--- NOTE | 2016-08-24 12:01 | DS ---
DATE OF ADMISSION: 08/20/2016 DATE OF DISCHARGE: 08/23/2016 FINAL DIAGNOSES: 1. Acute influenza A. 2. Chronic obstructive pulmonary disease exacerbation with acute purulent tracheobronchitis with acute influenza positive. 3. Thrombocytopenia. 4. Troponin 0.02, indeterminate, improved. 5. Acute coronary syndrome unlikely. 6. Increased creatinine kinase. 7. History of atrial fibrillation. 8. History of congestive heart failure ejection fraction unknown. 9. History of chronic obstructive pulmonary disease. 10. Hyperlipidemia. 11. History of prostate disorder. 12. Hard of hearing. 13. 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 14. History of epistaxis. 15. History ischemic cardiomyopathy. 16. Benign prostatic hypertrophy. 17. History of urinary tract infection. 18. History of hypertension. 19. History of coronary artery disease, coronary artery bypass grafting. 20. History of hernia repair. 21. Remote history of nicotine dependence. 22. FULL CODE. DISCHARGE DISPOSITION: The patient will be discharged is stable condition with guarded prognosis. Discharged cleared by pulmonary and cardiology. HISTORY OF PRESENT ILLNESS: This 81-year-old gentleman with a past medical history of multiple medical problems was admitted with features of acute influenza, the patient treated with antibiotics, antivirals, and steroids. Patient improved significantly. On exam, vital signs stable. CARDIOVASCULAR: S1, S2 muffled. RESPIRATORY: A few scattered rhonchi. ABDOMEN: Soft. Central nervous system: No focal deficits. DISCHARGE ADVICE AND MEDICATIONS: 1. Diet is cardiac. 2. Activity limited until follow-up. 3. Follow-up with Dr. Pierre Lamar in 2 to 3 days. 4. Follow-up with Dr. Chester as advised. 5. Follow-up with Dr. Mercado as advised. 6. Medications will be albuterol 2.5 q.i.d. and p.r.n. 7. Ecotrin 81 mg p.o. daily. 8. Lipitor 80 mg daily. 9. Vitamin D3 1000 daily. 10. Plavix 75 mg p.o. daily. 11. Lasix 20 mg p.o. Tuesday, Tuesday and Tuesday. 12. Motrin 600 mg q.6 p.r.n. 13. Levaquin 500 mg p.o. daily for 5 days. 14. Lopressor 12.5 mg p.o. daily. 15. Multivitamins 1 p.o. daily. 16. Protonix 40 mg daily. 17. Hytrin 1 mg p.o. q.h.s. 18. Prednisone 40 mg daily for 3 days, 30 mg daily for 3 days, 20 for 3 days, 10 for 3 days and then discontinued. Once again, the patient is being discharged in a stable condition with guarded prognosis. Tamiflu to finish the course.
== END 2016-08-23 17:05 | disposition home or self-care (01) | DRG 192 ==
LOC: EC 09:24 → 4MS4W 11:15
PROVIDERS: ADMIT Family Medicine; ATTEND Family Medicine
DX: J44.1 Chronic obstructive pulmonary disease with (acute) exacerbation (principal); I11.0 Hypertensive heart disease with heart failure; I50.9 Heart failure, unspecified; D69.6 Thrombocytopenia, unspecified; I48.91 Unspecified atrial fibrillation; J44.0 Chronic obstructive pulmonary disease with (acute) lower respiratory infection; I45.10 Unspecified right bundle-branch block; Z95.1 Presence of aortocoronary bypass graft; I25.5 Ischemic cardiomyopathy; J20.9 Acute bronchitis, unspecified; J10.1 Influenza due to other identified influenza virus with other respiratory manifestations; R74.8 Abnormal levels of other serum enzymes; I44.4 Left anterior fascicular block; R79.89 Other specified abnormal findings of blood chemistry; I25.10 Atherosclerotic heart disease of native coronary artery without angina pectoris; N40.0 Benign prostatic hyperplasia without lower urinary tract symptoms; R09.02 Hypoxemia; R53.1 Weakness; E78.5 Hyperlipidemia, unspecified; H91.90 Unspecified hearing loss, unspecified ear; Z83.3 Family history of diabetes mellitus; Z82.49 Family history of ischemic heart disease and other diseases of the circulatory system; Z79.02 Long term (current) use of antithrombotics/antiplatelets; Z87.891 Personal history of nicotine dependence; Z87.440 Personal history of urinary (tract) infections; Z77.090 Contact with and (suspected) exposure to asbestos; Z79.82 Long term (current) use of aspirin; Z79.899 Other long term (current) drug therapy; Z95.5 Presence of coronary angioplasty implant and graft; Z79.1 Long term (current) use of non-steroidal anti-inflammatories (NSAID); Z87.828 Personal history of other (healed) physical injury and trauma; Z71.3 Dietary counseling and surveillance
CPT/HCPCS: 36415; 71020; 80048; 80053; 82550; 82553; 83036; 83735; 83880; 84484; 85025; 85610; 85730; 87040; 87502; 93005; 94640; 94644; 96361; 96374; 99285

== ENCOUNTER 2017-01-28 07:16 | Inpatient (IN) | payer MEDICARE, BC ==
[2017-01-28] MEDS ORDERED: methylPREDNISolone SOD SUCCI 125 MG/2 ML VIAL IV STA (07:42)
[2017-01-28] MEDS ORDERED: IPRATROPIUM-ALBUTEROL 3 ML NEB INHALATION STA ×2 (07:42→10:38)
--- NOTE | 2017-01-28 07:45 | ED ---
General Adult HPI - General Chief complaint: Shortness of Breath Stated complaint: IBAN Time Seen by Provider: 01/28/17 07:32 Source: patient, family, EMS, RN notes reviewed Mode of arrival: EMS Limitations: no limitations - History of Present Illness Initial comments: Patient is a pleasant 81-year-old male presenting to the emergency department with difficulty in breathing. Patient attributes his symptoms to COPD. Patient does have cough with yellow brownish sputum. Symptoms worsen with exertion. Symptoms have been mild for a couple of days but worse today. No chest pain. No fevers. - Related Data Home Medications Medication Instructions Recorded Confirmed Aspirin EC [Ecotrin Low Dose] 81 mg PO DAILY 08/20/16 01/28/17 Atorvastatin [Lipitor] 80 mg PO DAILY 08/20/16 01/28/17 Clopidogrel Bisulfate [Plavix] 75 mg PO DAILY 08/20/16 01/28/17 Furosemide [Lasix] 20 mg PO MOWEFR 08/20/16 01/28/17 Metoprolol Tartrate [Lopressor] 12.5 mg PO DAILY 08/20/16 01/28/17 Albuterol Nebulized [Ventolin 2.5 mg INHALATION RT-QID 01/28/17 01/28/17 Nebulized] Allergies Allergy/AdvReac Type Severity Reaction Status Date / Time No Known Allergies Allergy Verified 01/28/17 09:07 Review of Systems ROS Statement: Those systems with pertinent positive or pertinent negative responses have been documented in the HPI. ROS Other: All systems not noted in ROS Statement are negative. Constitutional: Denies: fever Eyes: Denies: eye pain ENT: Denies: ear pain Respiratory: Reports: cough, dyspnea Cardiovascular: Denies: chest pain Endocrine: Denies: polydipsia Gastrointestinal: Denies: abdominal pain Genitourinary: Denies: dysuria Musculoskeletal: Denies: back pain Skin: Denies: rash Neurological: Denies: weakness Past Medical History Past Medical History: Atrial Fibrillation, Coronary Artery Disease (CAD), Chest Pain / Angina, COPD, Hyperlipidemia, Prostate Disorder Additional Past Medical History / Comment(s): Pt is very [place]-daughter is concerned because pt will smile and nod his head yes if he doesn't hear you. Other hx: Asbestos exposure, epistaxis with acute blood loss anemia, ishemic cardiomyopathy, BPH with surgery, UTI, hypotension. History of Any Multi-Drug Resistant Organisms: None Reported Past Surgical History: Coronary Bypass/CABG, Heart Catheterization, Hernia Repair, Prostate Surgery Additional Past Surgical History / Comment(s): CABG about 10 yrs ago in [place], [place], L leg surgery to repair d/t trauma, R inguinal hernia repair, colonoscopy. Past Anesthesia/Blood Transfusion Reactions: Postoperative Nausea & Vomiting ( PONV) Past Psychological History: No Psychological Hx Reported Smoking Status: Former smoker Past Alcohol Use History: None Reported Past Drug Use History: None Reported - Past Family History Father Family Medical History: Diabetes Mellitus, Myocardial Infarction (GA) Additional Family Medical History / Comment(s): Father of a GA at the age of about 70 yrs. Mother Family Medical History: No Reported History Additional Family Medical History / Comment(s): Mother lived to be 80yrs old. General Exam Limitations: no limitations General appearance: alert, in no apparent distress Head exam: Present: atraumatic Eye exam: Present: normal appearance, PERRL ENT exam: Present: normal oropharynx Neck exam: Present: normal inspection Respiratory exam: Present: wheezes, decreased breath sounds Cardiovascular Exam: Present: regular rate, normal rhythm GI/Abdominal exam: Present: soft. Absent: tenderness Extremities exam: Present: normal inspection. Absent: pedal edema, calf tenderness Neurological exam: Present: alert Psychiatric exam: Present: normal affect, normal mood Skin exam: Present: normal color Course Vital Signs 01/28/17 01/28/17 01/28/17 07:23 07:37 08:19 Temperature 97.3 F L Pulse Rate 81 80 Respiratory 19 19 Rate Blood Pressure 140/75 O2 Sat by Pulse 97 Oximetry 01/28/17 01/28/17 01/28/17 08:25 09:00 10:00 Temperature Pulse Rate 82 81 80 Respiratory 18 22 Rate Blood Pressure 152/72 151/74 O2 Sat by Pulse 97 98 Oximetry EKG Findings - EKG Comments: EKG Findings:: Normal sinus rhythm 81 with sinus arrhythmia. GA 138. QRS 122. QT 384. QTC 446. Left axis. Right bundle branch block. LVH. Nonspecific ST-T. Medical Decision Making - Medical Decision Making Patient reexamined and resting comfortably in bed. Patient states that Treatment did help however breathing and started to worsen some. Patient family updated on results and plan. Case was discussed in detail with Dr. Dillard , who will admit for Dr. Lamar. - Lab Data Result diagrams: 01/28/17 08:23 01/28/17 08:23 Lab Results 01/28/17 01/28/17 01/28/17 Range/Units 08:23 08:23 08:23 WBC 6.5 (3.8-10.6) k/uL RBC 4.88 (4.30-5.90) m/uL Hgb 14.2 (13.0-17.5) gm/dL Hct 42.8 (39.0-53.0) % MCV 87.7 (80.0-100.0) fL MCH 29.2 (25.0-35.0) pg MCHC 33.3 (31.0-37.0) g/dL RDW 15.0 (11.5-15.5) % Plt Count 146 L (150-450) k/uL Neutrophils % 82 % Lymphocytes % 8 % Monocytes % 5 % Eosinophils % 3 % Basophils % 0 % Neutrophils # 5.4 (1.3-7.7) k/uL Lymphocytes # 0.5 L (1.0-4.8) k/uL Monocytes # 0.3 (0-1.0) k/uL Eosinophils # 0.2 (0-0.7) k/uL Basophils # 0.0 (0-0.2) k/uL PT (9.0-12.0) sec INR (<1.2) APTT (22.0-30.0) sec Sodium 140 (137-145) mmol/L Potassium 4.1 (3.5-5.1) mmol/L Chloride 98 (98-107) mmol/L Carbon Dioxide 25 (22-30) mmol/L Anion Gap 17 mmol/L BUN 11 (9-20) mg/dL Creatinine 0.85 (0.66-1.25) mg/dL Est GFR (MDRD) Af Amer >60 (>60 ml/min/1.73 sqM) Est GFR (MDRD) Non-Af >60 (>60 ml/min/1.73 sqM) Glucose 67 L (74-99) mg/dL Calcium 9.6 (8.4-10.2) mg/dL Total Bilirubin 0.8 (0.2-1.3) mg/dL AST 56 (17-59) U/L ALT 39 (21-72) U/L Alkaline Phosphatase 90 (38-126) U/L Total Creatine Kinase 436 H (55-170) U/L CK-MB (CK-2) 5.8 H* (0.0-2.4) ng/mL CK-MB (CK-2) Rel Index 1.3 Troponin I <0.012 (0.000-0.034) ng/mL NT-Pro-B Natriuret Pep pg/mL Total Protein 7.9 (6.3-8.2) g/dL Albumin 4.7 (3.5-5.0) g/dL 01/28/17 01/28/17 Range/Units 08:23 08:23 WBC (3.8-10.6) k/uL RBC (4.30-5.90) m/uL Hgb (13.0-17.5) gm/dL Hct (39.0-53.0) % MCV (80.0-100.0) fL MCH (25.0-35.0) pg MCHC (31.0-37.0) g/dL RDW (11.5-15.5) % Plt Count (150-450) k/uL Neutrophils % % Lymphocytes % % Monocytes % % Eosinophils % % Basophils % % Neutrophils # (1.3-7.7) k/uL Lymphocytes # (1.0-4.8) k/uL Monocytes # (0-1.0) k/uL Eosinophils # (0-0.7) k/uL Basophils # (0-0.2) k/uL PT 10.8 (9.0-12.0) sec INR 1.1 (<1.2) APTT 23.3 (22.0-30.0) sec Sodium (137-145) mmol/L Potassium (3.5-5.1) mmol/L Chloride (98-107) mmol/L Carbon Dioxide (22-30) mmol/L Anion Gap mmol/L BUN (9-20) mg/dL Creatinine (0.66-1.25) mg/dL Est GFR (MDRD) Af Amer (>60 ml/min/1.73 sqM) Est GFR (MDRD) Non-Af (>60 ml/min/1.73 sqM) Glucose (74-99) mg/dL Calcium (8.4-10.2) mg/dL Total Bilirubin (0.2-1.3) mg/dL AST (17-59) U/L ALT (21-72) U/L Alkaline Phosphatase (38-126) U/L Total Creatine Kinase (55-170) U/L CK-MB (CK-2) (0.0-2.4) ng/mL CK-MB (CK-2) Rel Index Troponin I (0.000-0.034) ng/mL NT-Pro-B Natriuret Pep 265 pg/mL Total Protein (6.3-8.2) g/dL Albumin (3.5-5.0) g/dL - Radiology Data Radiology results: image reviewed (Chest x-ray shows COPD. Unchanged from previous.) Disposition Clinical Impression: Acute exacerbation of chronic obstructive airways disease Disposition: ADMITTED IP TO THIS HOSP Referrals: Pierre Lamar MD [Primary Care Provider] - 1-2 days Decision Time: 10:39
[2017-01-28 08:33] LABS: Basophils % (A) 0 %; CH 29.9; CHCM 34.2; Eosinophils # (A) 0.2 k/uL (0-0.7); Eosinophils % (A) 3 %; HCT 42.8 % (39.0-53.0); HDW 2.71; HGB 14.2 gm/dL (13.0-17.5); Luc # (Auto) 0.11; Luc % (Auto) 2; Lymphocytes # (A) 0.5 k/uL (1.0-4.8); Lymphocytes % (A) 8 %; MCH 29.2 pg (25.0-35.0); MCHC 33.3 g/dL (31.0-37.0); MCV 87.7 fL (80.0-100.0); Monocytes # (A) 0.3 k/uL (0-1.0); Monocytes % (A) 5 %; Neutrophils # (A) 5.4 k/uL (1.3-7.7); Neutrophils % (A) 82 %; RBC 4.88 m/uL (4.30-5.90); WBC 6.5 k/uL (3.8-10.6)
[2017-01-28 08:41] LABS: INR 1.1 (<1.2); Partial Thromboplastin Time 23.3 sec (22.0-30.0); Prothrombin Time 10.8 sec (9.0-12.0)
[2017-01-28 08:58] LABS: ALT 39 U/L (21-72); AST 56 U/L (17-59); Alkaline Phosphatase 90 U/L (38-126); Anion Gap 17 mmol/L; Blood Urea Nitrogen 11 mg/dL (9-20); Calcium 9.6 mg/dL (8.4-10.2); Carbon Dioxide 25 mmol/L (22-30); Chloride 98 mmol/L (98-107); Glucose 67 mg/dL (74-99); Non-African American GFR(MDRD) >60 (>60 ml/min/1.73 sqM); Potassium 4.1 mmol/L (3.5-5.1); Sodium 140 mmol/L (137-145); Total Bilirubin 0.8 mg/dL (0.2-1.3); Total Protein 7.9 g/dL (6.3-8.2)
[2017-01-28 09:09] LABS: Creatine Kinase 436 U/L (55-170)
--- NOTE | 2017-01-28 09:10 | XR ---
EXAMINATION TYPE: XR chest 2V DATE OF EXAM: 01/28/2017 COMPARISON: 08/20/2016 INDICATION: Difficulty breathing history of COPD TECHNIQUE: Frontal and lateral views of the chest are obtained. FINDINGS: The heart size is normal. The pulmonary vasculature is normal. The lungs are clear. There is hyperinflation. There is flattening the diaphragms. Minimal right pleu ral effusion may be present. IMPRESSION: 1. COPD. 2. Minimal right pleural effusion. A minimal left pleural effusion is not entirely excluded. Findings appear stable from July 2016
[2017-01-28 09:22] LABS: Troponin I <0.012 ng/mL (0.000-0.034)
[2017-01-28 09:23] LABS: Creatine Kinase MB 5.8 ng/mL (0.0-2.4)
[2017-01-28] MEDS ORDERED: IPRATROPIUM-ALBUTEROL 3 ML NEB INHALATION PRN (10:39)
[2017-01-28] MEDS ORDERED: AZITHROMYCIN 500 MG TAB PO SCH (10:45)
[2017-01-28] MEDS: IPRATROPIUM-ALBUTEROL 3 ML NEB INHALATION SCH ×3 (13:19→19:56)
[2017-01-28] MEDS: methylPREDNISolone SOD SUCCI 125 MG/2 ML VIAL IV SCH ×3 (14:47→23:46)
[2017-01-28] MEDS ORDERED: HYDROcodone/APAP 5-325MG 1 EACH TAB PO PRN (15:51)
[2017-01-28] MEDS ORDERED: DOCUSATE 100 MG CAP PO PRN (16:52)
[2017-01-28] MEDS: ACETAMINOPHEN TAB 325 MG TAB PO PRN (17:18)
[2017-01-28] MEDS: FUROSEMIDE 20 MG TAB PO SCH (17:19)
[2017-01-28 17:36] LABS: Glucose,Whole Blood 251 mg/dL (75-99)
[2017-01-28] MEDS: INSULIN LISPRO (humaLOG) 300 UNIT/3 ML VIAL SQ SCH ×2 (17:36→21:42)
--- NOTE | 2017-01-28 19:50 | P.CNPUL ---
History of Present Illness Consult date: 01/28/17 Requesting physician: Pierre Lamar Reason for consult: COPD Chief complaint: Shortness of breath History of present illness: This is a very pleasant 81-year-old gentleman who follows with Dr. Pierre Lamar as his primary care physician. He has a history of coronary artery disease with previous coronary artery bypass grafting and stent placements, ischemic cardiomyopathy, hypertension, hyperlipidemia and benign prosthetic hypertrophy. He also has a history of oxygen dependent chronic obstructive pulmonary disease and follows with Dr. Chester in our office for the same. He has had previous asbestos exposure. He has a 20 year smoking history however quit 25 years ago. He has been maintained on bronchodilators in the outpatient setting. He presented here early this morning via EMS after waking approximate 3 AM with sudden shortness of breath. He denied any cough or congestion. No chills or night sweats. He was quite dyspneic on minimal exertion. Wheezing and bronchospastic. His chest x-ray does not reveal any acute pulmonary process. No leukocytosis. ProBNP level 265. He is afebrile. Hemodynamically stable. Maintaining good O2 saturations in the upper 90s on 2 L/m per nasal cannula. Review of Systems Constitutional: Denies chills, Denies fever Eyes: denies blurred vision, denies bulging eye, denies decreased vision Ears: bilateral: decreased hearing Ears, nose, mouth and throat: Denies headache, Denies sore throat Cardiovascular: Denies chest pain, Denies shortness of breath Respiratory: Reports dyspnea, Reports home oxygen, Reports wheezing Gastrointestinal: Denies abdominal pain, Denies diarrhea, Denies nausea, Denies vomiting Genitourinary: Reports as per HPI Musculoskeletal: Denies myalgias Integumentary: Denies pruritus, Denies rash Neurological: Denies numbness, Denies weakness Psychiatric: Denies anxiety, Denies depression Endocrine: Denies fatigue, Denies weight change Past Medical History Past Medical History: Atrial Fibrillation, Coronary Artery Disease (CAD), Chest Pain / Angina, COPD, Hyperlipidemia, Prostate Disorder Additional Past Medical History / Comment(s): Pt is very [place]-daughter is concerned because pt will smile and nod his head yes if he doesn't hear you. Other hx: Asbestos exposure, home O2 at 2L/NC ATC, epistaxis with acute blood loss anemia, ishemic cardiomyopathy, BPH with surgery, UTI, hypotension. History of Any Multi-Drug Resistant Organisms: None Reported Past Surgical History: Coronary Bypass/CABG, Heart Catheterization, Hernia Repair, Prostate Surgery Additional Past Surgical History / Comment(s): CABG about 10 yrs ago in [place], [place], L leg surgery to repair d/t trauma, R inguinal hernia repair, pt thinks he had a TURP. Past Anesthesia/Blood Transfusion Reactions: Postoperative Nausea & Vomiting ( PONV) Smoking Status: Former smoker - Past Family History Father Family Medical History: Diabetes Mellitus, Myocardial Infarction ([facility]) Additional Family Medical History / Comment(s): Father of a [facility] at the age of about 70 yrs. Mother Family Medical History: No Reported History Additional Family Medical History / Comment(s): Mother lived to be 80yrs old. Medications and Allergies Home Medications Medication Instructions Recorded Confirmed Type Aspirin EC [Ecotrin Low Dose] 81 mg PO DAILY 08/20/16 01/28/17 History Atorvastatin [Lipitor] 80 mg PO DAILY 08/20/16 01/28/17 History Clopidogrel Bisulfate [Plavix] 75 mg PO DAILY 08/20/16 01/28/17 History Furosemide [Lasix] 20 mg PO MOWEFR 08/20/16 01/28/17 History Metoprolol Tartrate [Lopressor] 12.5 mg PO DAILY 08/20/16 01/28/17 History Albuterol Nebulized [Ventolin 2.5 mg INHALATION RT-QID 01/28/17 01/28/17 History Nebulized] Azithromycin [Zithromax Z-pack] 250 mg PO DIRECTED #6 tab 01/28/17 Rx predniSONE 20 mg PO BID #10 tab 01/28/17 Rx Allergies Allergy/AdvReac Type Severity Reaction Status Date / Time No Known Allergies Allergy Verified 01/28/17 09:07 Physical Exam Vitals: Vital Signs Temp Pulse Pulse Resp BP BP Pulse Ox 01/28/17 16:40 88 01/28/17 16:27 90 98 01/28/17 15:00 97.8 F 99 19 137/78 96 01/28/17 12:55 97.8 F 86 20 148/67 98 01/28/17 12:00 88 17 153/65 98 01/28/17 11:18 95 20 150/72 98 01/28/17 11:04 94 01/28/17 10:56 90 01/28/17 10:00 80 22 151/74 98 01/28/17 09:00 81 18 152/72 97 01/28/17 08:25 82 01/28/17 08:19 80 01/28/17 07:37 19 01/28/17 07:23 97.3 F L 81 19 140/75 97 Intake and Output 01/28/17 01/28/17 01/28/17 06:59 14:59 22:59 Other: # Voids 1 1 Weight 53.07 kg 59 kg Patient Weight 01/29/17 06:59 Weight 59 kg GENERAL EXAM: Alert, active, comfortable in no apparent distress. HEAD: Normocephalic. Hard of hearing. EYES: Normal reaction of pupils, equal size. NOSE: Clear with pink turbinates. THROAT: No erythema or exudates. NECK: No masses, no JVD. CHEST: No chest wall deformity. LUNGS: Equal air entry with faint end expiratory wheeze. Diminished. CVS: S1 and S2 normal with no audible murmurs, regular rhythm. ABDOMEN: No hepatosplenomegaly, normal bowel sounds, no guarding or rigidity. SPINE: No scoliosis or deformity SKIN: No rashes CENTRAL NERVOUS SYSTEM: No focal deficits, tone is normal in all 4 extremities. Extremities: There is no peripheral edema. No clubbing, no cyanosis. Peripheral pulses are intact. Results - Laboratory Findings CBC and BMP: 01/28/17 08:23 01/28/17 08:23 PT/INR, D-dimer PT 10.8 sec (9.0-12.0) 01/28/17 08:23 INR 1.1 (<1.2) 01/28/17 08:23 Abnormal lab findings: Abnormal Labs 01/28/17 01/28/17 01/28/17 08:23 08:23 08:23 Plt Count 146 L Lymphocytes # 0.5 L Glucose 67 L POC Glucose (mg/dL) Total Creatine Kinase 436 H CK-MB (CK-2) 5.8 H* 01/28/17 17:33 Plt Count Lymphocytes # Glucose POC Glucose (mg/dL) 251 H Total Creatine Kinase CK-MB (CK-2) - Diagnostic Findings Chest x-ray: image reviewed (No acute pulmonary process.) Assessment and Plan Plan: Impression: #1 Acute exacerbation of oxygen dependent chronic obstructive pulmonary disease. #2 Remote history of chronic tobacco dependence. #3 History of asbestos exposure. #4 Coronary artery disease with previous coronary bypass grafting and stent placements. #5 Ischemic cardio myopathy. #6 Hypertension. #7 Hyperlipidemia. #8 Benign prosthetic hypertrophy. #9 History of influenza A infection. Plan: The patient was seen and evaluated by Dr. Sommer. His chest x-ray and labs were reviewed. We will continue with his current treatment for COPD exacerbation including bronchodilators, Pulmicort inhalations, IV Solu- Medrol. He remains on empiric antibiotics in the form of ceftriaxone and azithromycin. He is on heparin for DVT prophylaxis. Protonix for GI prophylaxis. We will continue to follow and make further recommendations based on her clinical status. Time with Patient: Greater than 30
[2017-01-28] MEDS: FORMOTEROL FUMARATE 20 MCG/2 ML NEBU INHALATION SCH (19:56)
[2017-01-28] MEDS: BUDESONIDE 1 MG/2 ML NEBU INHALATION SCH (19:56)
[2017-01-28] MEDS: HEPARIN SODIUM,PORCINE 5,000 UNIT/ML 1 ML VIAL SQ SCH (20:14)
[2017-01-28] MEDS: MELATONIN 3 MG TABLET PO SCH (20:15)
[2017-01-28 20:43] LABS: Glucose,Whole Blood 240 mg/dL (75-99)
[2017-01-28 22:15] LABS: Hemoglobin A1C 6.2 % (4.2-6.1)
[2017-01-29] MEDS: methylPREDNISolone SOD SUCCI 125 MG/2 ML VIAL IV SCH ×3 (06:32→17:39)
[2017-01-29 07:13] LABS: Glucose,Whole Blood 190 mg/dL (75-99)
--- NOTE | 2017-01-29 07:14 | HP ---
HISTORY AND PHYSICAL CHIEF COMPLAINT: Shortness of breath. HISTORY OF PRESENT ILLNESS: This 81-year-old gentleman with a past medical history of multiple medial problems including history of COPD, history of atrial fibrillation, history of hyperlipidemia, history of prostate disorder being followed by Dr. Pierre Lamar in the outpatient setting was apparently having some shortness of breath and cough. Patient had oxygen . This morning the daughter woke up and found that the patient was extremely short of breath. Patient unable to move around. The patient also had a yellowish brown sputum and because of the concerns, the patient was taken to [facility] ER and was admitted for further evaluation and treatment. EKG showed right bundle branch block pattern. Otherwise the chest showed minimal right pleural effusion. Otherwise there is no significant fever, rigors, chills. No history of headache, loss of consciousness or seizure. PAST MEDICAL HISTORY: History atrial fibrillation, CAD, history of COPD, hyperlipidemia, history of flu previously. MEDICATIONS: 1. Lopressor 12.5 mg p.o. daily. 2. Lasix 20 mg Tuesday, Tuesday, Tuesday. 3. Plavix 75 mg p.o. daily. 4. Lipitor 80 mg p.o. daily. 5. Ecotrin 81 mg p.o. daily. 6. Ventolin 2.5 q.i.d. 7. Prednisone 20 mg p.o. b.i.d. 8. Zithromax 250 mg p.r.n. ALLERGIES: None. FAMILY HISTORY: History of diabetes mellitus and myocardial infarction in the family. SOCIAL HISTORY: Previous history of smoking, no history of current smoking or alcohol intake. REVIEW OF SYSTEMS: ENT: Diminished hearing and vision. CARDIOVASCULAR SYSTEM: No angina or palpitation. RESPIRATORY SYSTEM: As mentioned earlier. GI: No nausea or diarrhea. : No dysuria or urinary retention. NERVOUS SYSTEM: No numbness or weakness. ALLERGY/IMMUNOLOGY: No asthma or hayfever. MUSCULOSKELETAL: As mentioned earlier. HEMATOLOGY/ONCOLOGY: No history of anemia. ENDOCRINE: No history of diabetes or hypothyroidism. CONSTITUTIONAL: As mentioned earlier, DERMATOLOGY: Negative. RHEUMATOLOGY: Negative. PSYCHIATRY: As mentioned earlier. PHYSICAL EXAMINATION: The patient is alert and oriented x3. Pulse is 95, blood pressure 150/72, respirations 20, temperature is 98% on 2 L nasal cannula. HEENT: Conjunctivae normal. Oral mucosa moist. Neck is no jugular venous distention. No carotid bruit. No thyroid enlargement. No lymph node enlargement. CARDIOVASCULAR: S1 and S2 normal. No S3, no S4. RESPIRATORY: Breath sounds diminished at the bases. Bilateral scattered rhonchi and expiratory wheezing and crackles. Abdomen is soft, nontender, no mass palpable. No hepatosplenomegaly. LEGS: No edema. No swelling. NERVOUS SYSTEM: Higher function as mentioned earlier. Moves all 4 limbs. No focal motor or sensory deficits. LYMPHATICS: No lymphadenopathy of the neck, axillae or groin. SKIN: No ulcer, rash or bleeding. LABS: WBC 6.5, hemoglobin is 14.2, platelets 146. CK-MB is 5.8. ASSESSMENT: 1. Chronic obstructive pulmonary disease acute exacerbation with acute purulent tracheobronchitis. 2. Right bundle branch block on EKG. 3. History of coronary artery. 4. History atrial fibrillation. 5. History of hyperlipidemia. 6. Chronic respiratory failure, hypoxic. RECOMMENDATIONS AND DISCUSSION: This 81-year-old gentleman presented with multiple complex medical issues, will monitor the patient closely. Continue the current medication. Continue symptomatic treatment. Will optimize bronchodilator treatment. See orders for further details. Empiric antibiotics will be used, steroids will be used. Accu-Cheks a.c. and at bedtime and NovoLog scale. Dr. Chester will be consulted. Chest x-ray was reviewed and showed some pleural effusion. No obvious pneumonia is noted. Guarded prognosis because of multiple complex medical issues. Further recommendations to follow. A copy of dictation forwarded to Dr. Pierre Lamar who is the primary physician. MAGALYL / MIRIAMN: [id number] / [facility] TISCH HOSPITALAroldo
[2017-01-29] MEDS: FORMOTEROL FUMARATE 20 MCG/2 ML NEBU INHALATION SCH ×2 (07:16→19:31)
[2017-01-29] MEDS: IPRATROPIUM-ALBUTEROL 3 ML NEB INHALATION SCH ×4 (07:16→19:31)
[2017-01-29] MEDS: BUDESONIDE 1 MG/2 ML NEBU INHALATION SCH ×2 (07:16→19:31)
[2017-01-29 07:49] LABS: Basophils % (A) 0 %; CH 29.9; CHCM 33.7; Eosinophils % (A) 0 %; HCT 42.3 % (39.0-53.0); HGB 13.7 gm/dL (13.0-17.5); Luc # (Auto) 0.05; Luc % (Auto) 0; Lymphocytes # (A) 0.5 k/uL (1.0-4.8); Lymphocytes % (A) 4 %; MCH 28.8 pg (25.0-35.0); MCHC 32.4 g/dL (31.0-37.0); Monocytes # (A) 0.3 k/uL (0-1.0); Monocytes % (A) 2 %; Neutrophils # (A) 12.3 k/uL (1.3-7.7); Neutrophils % (A) 94 %; RBC 4.75 m/uL (4.30-5.90); RDW 14.9 % (11.5-15.5); WBC 13.2 k/uL (3.8-10.6); WBC (Perox) 13.45
[2017-01-29] MEDS: PANTOPRAZOLE 40 MG TABLET PO SCH (07:57)
[2017-01-29] MEDS: INSULIN LISPRO (humaLOG) 300 UNIT/3 ML VIAL SQ SCH ×4 (07:57→21:20)
[2017-01-29] MEDS: ATORVASTATIN 80 MG TAB PO SCH (07:58)
[2017-01-29] MEDS: ASPIRIN 81 MG CHEW PO SCH (07:58)
[2017-01-29] MEDS: HEPARIN SODIUM,PORCINE 5,000 UNIT/ML 1 ML VIAL SQ SCH ×2 (07:59→21:20)
[2017-01-29] MEDS: METOPROLOL TARTRATE 12.5 MG TAB PO SCH (07:59)
[2017-01-29] MEDS: CLOPIDOGREL 75 MG TAB PO SCH (07:59)
[2017-01-29] MEDS: ACETAMINOPHEN TAB 325 MG TAB PO PRN (08:09)
[2017-01-29] MEDS: ALPRAZolam 0.25 MG TAB PO PRN ×2 (08:18→17:39)
[2017-01-29 08:19] LABS: Anion Gap 10 mmol/L; Blood Urea Nitrogen 13 mg/dL (9-20); Calcium 9.5 mg/dL (8.4-10.2); Carbon Dioxide 30 mmol/L (22-30); Chloride 98 mmol/L (98-107); Glucose 185 mg/dL (74-99); Non-African American GFR(MDRD) >60 (>60 ml/min/1.73 sqM); Potassium 4.2 mmol/L (3.5-5.1); Sodium 138 mmol/L (137-145)
[2017-01-29] MEDS: AZITHROMYCIN 500 MG in SODIUM CHLORIDE 0.9% 250 ML IVPB SCH (11:00)
[2017-01-29 12:16] LABS: Glucose,Whole Blood 75 mg/dL (75-99)
[2017-01-29] MEDS: MULTIVITAMINS, THERA 1 EACH TAB PO SCH (13:09)
--- NOTE | 2017-01-29 13:14 | P.PN ---
Subjective This is a very pleasant 81-year-old gentleman who follows with Dr. Pierre Lamar as his primary care physician. He has a history of coronary artery disease with previous coronary artery bypass grafting and stent placements, ischemic cardiomyopathy, hypertension, hyperlipidemia and benign prosthetic hypertrophy. He also has a history of oxygen dependent chronic obstructive pulmonary disease and follows with Dr. Chester in our office for the same. He has had previous asbestos exposure. He has a 20 year smoking history however quit 25 years ago. He has been maintained on bronchodilators in the outpatient setting. He presented here early this morning via EMS after waking approximate 3 AM with sudden shortness of breath. He denied any cough or congestion. No chills or night sweats. He was quite dyspneic on minimal exertion. Wheezing and bronchospastic. His chest x-ray does not reveal any acute pulmonary process. No leukocytosis. ProBNP level 265. He is afebrile. Hemodynamically stable. Maintaining good O2 saturations in the upper 90s on 2 L/m per nasal cannula. The patient is seen again today 01/29/2017 in follow-up on the regular medical floor. He is awake and alert in no acute distress. He is not much improved today as compared to yesterday. Still dyspneic with minimal exertion. He has a loose nonproductive cough. No chills or night sweats. He is maintaining O2 saturations up to 100% on 2 L/m per nasal cannula. He's been afebrile. He remains on bronchodilators, Pulmicort, IV Solu-Medrol and empiric antibiotics in the form of ceftriaxone and azithromycin. Objective - Vital Signs Vital signs: Vital Signs Temp 97.0 F L 01/29/17 07:00 Pulse 88 01/29/17 11:39 Resp 19 01/29/17 07:00 BP 120/76 01/29/17 07:00 Pulse Ox 100 01/29/17 07:00 Intake & Output 01/28/17 01/29/17 01/29/17 18:59 06:59 18:59 Weight 59 kg Other: # Voids 1 4 # Bowel Movements 1 - Exam GENERAL EXAM: Alert, active, comfortable in no apparent distress. HEAD: Normocephalic. Hard of hearing. EYES: Normal reaction of pupils, equal size. NOSE: Clear with pink turbinates. THROAT: No erythema or exudates. NECK: No masses, no JVD. CHEST: No chest wall deformity. LUNGS: Equal air entry with faint end expiratory wheeze. Diminished. CVS: S1 and S2 normal with no audible murmurs, regular rhythm. ABDOMEN: No hepatosplenomegaly, normal bowel sounds, no guarding or rigidity. SPINE: No scoliosis or deformity SKIN: No rashes CENTRAL NERVOUS SYSTEM: No focal deficits, tone is normal in all 4 extremities. Extremities: There is no peripheral edema. No clubbing, no cyanosis. Peripheral pulses are intact. - Labs CBC & Chem 7: 01/29/17 07:33 01/29/17 07:33 Labs: Abnormal Lab Results - Last 24 Hours (Table) 01/28/17 01/28/17 01/28/17 Range/Units 08:23 17:33 20:41 WBC (3.8-10.6) k/uL Plt Count (150-450) k/uL Neutrophils # (1.3-7.7) k/uL Lymphocytes # (1.0-4.8) k/uL Glucose (74-99) mg/dL POC Glucose (mg/dL) 251 H 240 H (75-99) mg/dL Hemoglobin A1c 6.2 H (4.2-6.1) % 01/29/17 01/29/17 01/29/17 Range/Units 07:07 07:33 07:33 WBC 13.2 H (3.8-10.6) k/uL Plt Count 149 L (150-450) k/uL Neutrophils # 12.3 H (1.3-7.7) k/uL Lymphocytes # 0.5 L (1.0-4.8) k/uL Glucose 185 H (74-99) mg/dL POC Glucose (mg/dL) 190 H (75-99) mg/dL Hemoglobin A1c (4.2-6.1) % Assessment and Plan Plan: Impression: #1 Acute exacerbation of oxygen dependent chronic obstructive pulmonary disease. #2 Remote history of chronic tobacco dependence. #3 History of asbestos exposure. #4 Coronary artery disease with previous coronary bypass grafting and stent placements. #5 Ischemic cardio myopathy. #6 Hypertension. #7 Hyperlipidemia. #8 Benign prosthetic hypertrophy. #9 History of influenza A infection. Plan: The patient was seen and evaluated by Dr. Sommer. We will continue with his current treatment for COPD exacerbation including bronchodilators, Pulmicort inhalations, IV Solu- Medrol. He remains on empiric antibiotics in the form of ceftriaxone and azithromycin. He is on heparin for DVT prophylaxis. Protonix for GI prophylaxis. We will increase his activity as tolerated. We will continue to follow.
[2017-01-29 16:54] LABS: Glucose,Whole Blood 147 mg/dL (75-99)
[2017-01-29 21:02] LABS: Glucose,Whole Blood 137 mg/dL (75-99)
[2017-01-29] MEDS: MELATONIN 3 MG TABLET PO SCH (21:20)
[2017-01-30] MEDS: methylPREDNISolone SOD SUCCI 125 MG/2 ML VIAL IV SCH ×3 (00:59→12:41)
[2017-01-30] MEDS: ALPRAZolam 0.25 MG TAB PO PRN ×2 (06:44→16:23)
[2017-01-30 07:15] LABS: Glucose,Whole Blood 151 mg/dL (75-99)
[2017-01-30] MEDS: BUDESONIDE 1 MG/2 ML NEBU INHALATION SCH ×2 (07:22→20:20)
[2017-01-30] MEDS: IPRATROPIUM-ALBUTEROL 3 ML NEB INHALATION SCH ×4 (07:22→20:20)
[2017-01-30] MEDS: FORMOTEROL FUMARATE 20 MCG/2 ML NEBU INHALATION SCH ×2 (07:22→20:19)
[2017-01-30] MEDS: INSULIN LISPRO (humaLOG) 300 UNIT/3 ML VIAL SQ SCH ×4 (07:50→21:20)
[2017-01-30] MEDS: ATORVASTATIN 80 MG TAB PO SCH (07:51)
[2017-01-30] MEDS: PANTOPRAZOLE 40 MG TABLET PO SCH (07:51)
[2017-01-30] MEDS: ASPIRIN 81 MG CHEW PO SCH (07:51)
[2017-01-30] MEDS: HEPARIN SODIUM,PORCINE 5,000 UNIT/ML 1 ML VIAL SQ SCH ×2 (07:52→21:18)
[2017-01-30] MEDS: CLOPIDOGREL 75 MG TAB PO SCH (07:52)
[2017-01-30] MEDS: METOPROLOL TARTRATE 12.5 MG TAB PO SCH (07:52)
[2017-01-30 08:57] LABS: Basophils % (A) 0 %; CH 29.8; CHCM 33.8; Eosinophils % (A) 0 %; HCT 35.8 % (39.0-53.0); HDW 2.58; HGB 12.1 gm/dL (13.0-17.5); Luc % (Auto) 1; Lymphocytes # (A) 0.3 k/uL (1.0-4.8); Lymphocytes % (A) 2 %; MCH 29.9 pg (25.0-35.0); MCHC 33.7 g/dL (31.0-37.0); MCV 88.6 fL (80.0-100.0); Mean Platelet Volume 9.6; Monocytes # (A) 0.4 k/uL (0-1.0); Monocytes % (A) 3 %; Neutrophils # (A) 14.1 k/uL (1.3-7.7); Neutrophils % (A) 95 %; RBC 4.04 m/uL (4.30-5.90); RDW 15.3 % (11.5-15.5); WBC 14.9 k/uL (3.8-10.6); WBC (Perox) 15.42
[2017-01-30 09:51] LABS: Anion Gap 7 mmol/L; Blood Urea Nitrogen 16 mg/dL (9-20); Calcium 9.1 mg/dL (8.4-10.2); Carbon Dioxide 31 mmol/L (22-30); Chloride 100 mmol/L (98-107); Glucose 124 mg/dL (74-99); Non-African American GFR(MDRD) >60 (>60 ml/min/1.73 sqM); Potassium 4.5 mmol/L (3.5-5.1); Sodium 138 mmol/L (137-145)
[2017-01-30] MEDS: AZITHROMYCIN 500 MG in SODIUM CHLORIDE 0.9% 250 ML IVPB SCH (10:08)
[2017-01-30 12:00] LABS: Glucose,Whole Blood 99 mg/dL (75-99)
[2017-01-30] MEDS: MULTIVITAMINS, THERA 1 EACH TAB PO SCH (12:41)
--- NOTE | 2017-01-30 13:00 | PN ---
PROGRESS NOTE DATE OF SERVICE: 01/29/2017 I am covering for Dr. Pierre Lamar. This 81-year-old gentleman was admitted with COPD exacerbation. This appears to be improving significantly. No chest pain. No palpitations. No fever. The patient is still on IV steroids. Dr. Sommer is following the patient closely. On exam, alert and oriented x3. Pulse 102, blood pressure 107/80, respirations 22, temperature 98.9, pulse ox 100% on 2 L. HEENT: Conjunctivae normal. NECK: No JVD. CARDIAC: S1/S2 muffled. RESPIRATORY: Breath sounds diminished, especially at the bases. Scattered rhonchi and crackles. Respiratory wheezing also present. ABDOMEN: Soft, nontender. No mass palpable. LEGS: No edema. NERVOUS SYSTEM: No focal deficits. LABS: WBC 13.2, hemoglobin 13.7. ASSESSMENT: 1. Chronic obstructive pulmonary disease acute exacerbation with acute tracheobronchitis. 2. Right bundle branch block on EKG. 3. History of coronary artery disease. 4. History of atrial fibrillation. 5. History hyperlipidemia. 6. Chronic hypoxic respiratory failure. RECOMMENDATIONS AND DISCUSSION: Continue current medication, continue to monitor, continue symptomatic treatment. Otherwise, closely follow with Dr. Sommer. Guarded prognosis. Further [id number] to follow. MMODL / IJN: [id number] /
--- NOTE | 2017-01-30 16:16 | P.PN ---
Subjective This is a very pleasant 81-year-old gentleman who follows with Dr. Pierre Lamar as his primary care physician. He has a history of coronary artery disease with previous coronary artery bypass grafting and stent placements, ischemic cardiomyopathy, hypertension, hyperlipidemia and benign prosthetic hypertrophy. He also has a history of oxygen dependent chronic obstructive pulmonary disease and follows with Dr. Chester in our office for the same. He has had previous asbestos exposure. He has a 20 year smoking history however quit 25 years ago. He has been maintained on bronchodilators in the outpatient setting. He presented here early this morning via EMS after waking approximate 3 AM with sudden shortness of breath. He denied any cough or congestion. No chills or night sweats. He was quite dyspneic on minimal exertion. Wheezing and bronchospastic. His chest x-ray does not reveal any acute pulmonary process. No leukocytosis. ProBNP level 265. He is afebrile. Hemodynamically stable. Maintaining good O2 saturations in the upper 90s on 2 L/m per nasal cannula. The patient is seen again today 01/29/2017 in follow-up on the regular medical floor. He is awake and alert in no acute distress. He is not much improved today as compared to yesterday. Still dyspneic with minimal exertion. He has a loose nonproductive cough. No chills or night sweats. He is maintaining O2 saturations up to 100% on 2 L/m per nasal cannula. He's been afebrile. He remains on bronchodilators, Pulmicort, IV Solu-Medrol and empiric antibiotics in the form of ceftriaxone and azithromycin. On 01/30/2017 the patient is being seen in follow-up. He still bronchospastic and wheezy. Earlier this morning he started having some shortness of breath especially with activity. Currently is at rest. He is on bronchodilators and systemic steroids. Is on a combination of Rocephin and Zithromax. We'll give him another 24 hours in regards to COPD exacerbation. The chest x-ray showed COPD and minimal right-sided pleural effusion and tiny left Objective - Vital Signs Vital signs: Vital Signs Temp 97.0 F L 01/30/17 14:36 Pulse 88 01/30/17 15:51 Resp 19 01/30/17 14:36 BP 108/64 01/30/17 14:36 Pulse Ox 97 01/30/17 14:36 Intake & Output 01/29/17 01/30/17 01/30/17 18:59 06:59 18:59 Other: # Voids 3 3 2 # Bowel Movements 1 - Exam The patient appeared well nourished and normally developed. Vital signs as documented. Head exam is unremarkable. No scleral icterus or corneal arcus noted. Neck is without jugular venous distension, thyromegaly, or carotid bruits. Carotid upstrokes are brisk bilaterally. Lungs are diminished bilaterally and there are some scattered expiratory wheezes throughout the lung jackson bilaterally.. Cardiac exam reveals the PMI to be normally sized and situated. Rhythm is regular. First and second heart sounds normal. No murmurs, rubs or gallops. Abdominal exam reveals normal bowel sounds, no masses, no organomegaly and no aortic enlargement. Extremities are nonedematous and both femoral and pedal pulses are normal. - Labs CBC & Chem 7: 01/30/17 08:08 01/30/17 08:08 Labs: Abnormal Lab Results - Last 24 Hours (Table) 01/29/17 01/29/17 01/30/17 Range/Units 16:52 21:01 07:12 WBC (3.8-10.6) k/uL RBC (4.30-5.90) m/uL Hgb (13.0-17.5) gm/dL Hct (39.0-53.0) % Neutrophils # (1.3-7.7) k/uL Lymphocytes # (1.0-4.8) k/uL Carbon Dioxide (22-30) mmol/L Glucose (74-99) mg/dL POC Glucose (mg/dL) 147 H 137 H 151 H (75-99) mg/dL 01/30/17 01/30/17 Range/Units 08:08 08:08 WBC 14.9 H (3.8-10.6) k/uL RBC 4.04 L (4.30-5.90) m/uL Hgb 12.1 L (13.0-17.5) gm/dL Hct 35.8 L (39.0-53.0) % Neutrophils # 14.1 H (1.3-7.7) k/uL Lymphocytes # 0.3 L (1.0-4.8) k/uL Carbon Dioxide 31 H (22-30) mmol/L Glucose 124 H (74-99) mg/dL POC Glucose (mg/dL) (75-99) mg/dL Assessment and Plan Plan: Impression: #1 Acute exacerbation of oxygen dependent chronic obstructive pulmonary disease. The patient is still having some shortness of breath and his acute COPD exacerbation remains symptomatic. #2 Remote history of chronic tobacco dependence. #3 History of asbestos exposure. #4 Coronary artery disease with previous coronary bypass grafting and stent placements. #5 Ischemic cardio myopathy. #6 Hypertension. #7 Hyperlipidemia. #8 Benign prosthetic hypertrophy. #9 History of influenza A infection. Plan Continue same treatment. The abdomen with this patient and morning. Continue with IV Solu Medrol for another 24 hours.
[2017-01-30] MEDS: methylPREDNISolone SOD SUCCI 40 MG/ML 1 ML VIAL IV SCH ×2 (16:24→23:17)
[2017-01-30 17:03] LABS: Glucose,Whole Blood 151 mg/dL (75-99)
[2017-01-30] MEDS: MELATONIN 3 MG TABLET PO SCH (21:18)
[2017-01-30 21:21] LABS: Glucose,Whole Blood 115 mg/dL (75-99)
[2017-01-31 02:42] LABS: Basophils % (A) 0 %; CH 29.7; CHCM 33.5; Eosinophils % (A) 0 %; HCT 36.1 % (39.0-53.0); HDW 2.55; HGB 11.8 gm/dL (13.0-17.5); Luc # (Auto) 0.07; Luc % (Auto) 1; Lymphocytes # (A) 0.2 k/uL (1.0-4.8); Lymphocytes % (A) 2 %; MCH 29.2 pg (25.0-35.0); MCHC 32.8 g/dL (31.0-37.0); MCV 89.2 fL (80.0-100.0); Mean Platelet Volume 9.9; Monocytes # (A) 0.3 k/uL (0-1.0); Monocytes % (A) 3 %; Neutrophils # (A) 11.7 k/uL (1.3-7.7); Neutrophils % (A) 95 %; RBC 4.05 m/uL (4.30-5.90); RDW 15.5 % (11.5-15.5); WBC 12.3 k/uL (3.8-10.6); WBC (Perox) 11.92
[2017-01-31 02:52] LABS: Anion Gap 6 mmol/L; Blood Urea Nitrogen 20 mg/dL (9-20); Carbon Dioxide 30 mmol/L (22-30); Chloride 100 mmol/L (98-107); Glucose 139 mg/dL (74-99); Non-African American GFR(MDRD) >60 (>60 ml/min/1.73 sqM); Potassium 4.6 mmol/L (3.5-5.1); Sodium 136 mmol/L (137-145)
[2017-01-31] MEDS: ALPRAZolam 0.25 MG TAB PO PRN ×2 (05:16→15:40)
[2017-01-31] MEDS: FORMOTEROL FUMARATE 20 MCG/2 ML NEBU INHALATION SCH ×2 (05:20→20:27)
[2017-01-31] MEDS: BUDESONIDE 1 MG/2 ML NEBU INHALATION SCH ×2 (05:20→20:27)
[2017-01-31] MEDS: IPRATROPIUM-ALBUTEROL 3 ML NEB INHALATION SCH ×4 (05:21→20:27)
[2017-01-31 07:18] LABS: Glucose,Whole Blood 101 mg/dL (75-99)
[2017-01-31] MEDS: INSULIN LISPRO (humaLOG) 300 UNIT/3 ML VIAL SQ SCH ×4 (07:28→20:40)
[2017-01-31] MEDS: PANTOPRAZOLE 40 MG TABLET PO SCH (07:47)
[2017-01-31] MEDS: ASPIRIN 81 MG CHEW PO SCH (07:47)
[2017-01-31] MEDS: AZITHROMYCIN 500 MG TAB PO SCH (07:47)
[2017-01-31] MEDS: FUROSEMIDE 20 MG TAB PO SCH (07:47)
[2017-01-31] MEDS: METOPROLOL TARTRATE 12.5 MG TAB PO SCH (07:47)
[2017-01-31] MEDS: methylPREDNISolone SOD SUCCI 40 MG/ML 1 ML VIAL IV SCH ×3 (07:47→23:52)
[2017-01-31] MEDS: ATORVASTATIN 80 MG TAB PO SCH (07:47)
[2017-01-31] MEDS: CLOPIDOGREL 75 MG TAB PO SCH (07:47)
[2017-01-31] MEDS: HEPARIN SODIUM,PORCINE 5,000 UNIT/ML 1 ML VIAL SQ SCH ×2 (07:48→20:40)
--- NOTE | 2017-01-31 10:46 | PN ---
PROGRESS NOTE DATE OF SERVICE: 01/31/2008 This 81-year-old gentleman who was admitted with COPD acute exacerbation also had right bundle branch block also. Patient is feeling better. Patient also has significant anxiety responding to Xanax at this time. No chest pain. No palpitations. No fever. EXAM: On exam, alert and oriented x3. Pulse 86, blood pressure 108/64, respiration 18, temperature is 97 degrees, pulse ox 97% on room air. HEENT: Conjunctivae normal. Oral mucosa moist. NECK: No jugular venous distention. No carotid bruit. No lymph node enlargement. CARDIOVASCULAR: S1, S2. No S3, no S4. RESPIRATORY: Breath sounds diminished in the bases. A few scattered rhonchi and crackles. ABDOMEN: Soft, nontender. LEGS: No edema, no swelling. NERVOUS SYSTEM: No focal deficits. LABS: WBC 14.9. ASSESSMENT: 1. Chronic obstructive pulmonary disease acute exacerbation with acute purulent tracheobronchitis. 2. Right bundle branch block in EKG. 3. History of coronary artery disease. 4. History atrial fibrillation. 5. History of hyperlipidemia. 6. History of chronic hypoxic respiratory failure. RECOMMENDATIONS AND DISCUSSION: I recommend to continue current medications, continue symptomatic treatment. Increase ambulation. Otherwise taper down the steroids to 40 IV q.8h. Continue the bronchodilators and continue the rest of medications. Prognosis guarded. Further recommendations to follow. MMODL / MIRIAMN: [id number] /
[2017-01-31 12:26] LABS: Glucose,Whole Blood 99 mg/dL (75-99)
[2017-01-31] MEDS: MULTIVITAMINS, THERA 1 EACH TAB PO SCH (13:14)
--- NOTE | 2017-01-31 15:05 | P.PN ---
Subjective This is a very pleasant 81-year-old gentleman who follows with Dr. Pierre Lamar as his primary care physician. He has a history of coronary artery disease with previous coronary artery bypass grafting and stent placements, ischemic cardiomyopathy, hypertension, hyperlipidemia and benign prosthetic hypertrophy. He also has a history of oxygen dependent chronic obstructive pulmonary disease and follows with Dr. Cehster in our office for the same. He has had previous asbestos exposure. He has a 20 year smoking history however quit 25 years ago. He has been maintained on bronchodilators in the outpatient setting. He presented here early this morning via EMS after waking approximate 3 AM with sudden shortness of breath. He denied any cough or congestion. No chills or night sweats. He was quite dyspneic on minimal exertion. Wheezing and bronchospastic. His chest x-ray does not reveal any acute pulmonary process. No leukocytosis. ProBNP level 265. He is afebrile. Hemodynamically stable. Maintaining good O2 saturations in the upper 90s on 2 L/m per nasal cannula. The patient is seen again today 01/29/2017 in follow-up on the regular medical floor. He is awake and alert in no acute distress. He is not much improved today as compared to yesterday. Still dyspneic with minimal exertion. He has a loose nonproductive cough. No chills or night sweats. He is maintaining O2 saturations up to 100% on 2 L/m per nasal cannula. He's been afebrile. He remains on bronchodilators, Pulmicort, IV Solu-Medrol and empiric antibiotics in the form of ceftriaxone and azithromycin. On 01/30/2017 the patient is being seen in follow-up. He still bronchospastic and wheezy. Earlier this morning he started having some shortness of breath especially with activity. Currently is at rest. He is on bronchodilators and systemic steroids. Is on a combination of Rocephin and Zithromax. We'll give him another 24 hours in regards to COPD exacerbation. The chest x-ray showed COPD and minimal right-sided pleural effusion and tiny left [id number] the patient is essentially the same. He still bronchospastic and wheezy. Earlier this morning he was again shortness of breath and he is currently less wheezy compared to yesterday. No new complaints otherwise. I' ll keep him on IV Solu Medrol for another 24 hours. Antibiotics will be kept unchanged. Continue bronchodilators. Objective - Vital Signs Vital signs: Vital Signs Temp 98.2 F 01/31/17 14:48 Pulse 90 01/31/17 14:48 Resp 14 01/31/17 14:48 BP 117/66 01/31/17 14:48 Pulse Ox 97 01/31/17 14:48 Intake & Output 01/30/17 01/31/17 01/31/17 18:59 06:59 18:59 Other: Voiding Method Toilet # Voids 4 2 1 # Bowel Movements 1 - Exam The patient appeared well nourished and normally developed. Vital signs as documented. Head exam is unremarkable. No scleral icterus or corneal arcus noted. Neck is without jugular venous distension, thyromegaly, or carotid bruits. Carotid upstrokes are brisk bilaterally. Lungs are diminished bilaterally and there are some scattered expiratory wheezes throughout the lung jackson bilaterally.. Cardiac exam reveals the PMI to be normally sized and situated. Rhythm is regular. First and second heart sounds normal. No murmurs, rubs or gallops. Abdominal exam reveals normal bowel sounds, no masses, no organomegaly and no aortic enlargement. Extremities are nonedematous and both femoral and pedal pulses are normal. - Labs CBC & Chem 7: 01/31/17 02:17 01/31/17 02:17 Labs: Abnormal Lab Results - Last 24 Hours (Table) 01/30/17 01/30/17 01/31/17 Range/Units 16:59 21:19 02:17 WBC 12.3 H (3.8-10.6) k/uL RBC 4.05 L (4.30-5.90) m/uL Hgb 11.8 L (13.0-17.5) gm/dL Hct 36.1 L (39.0-53.0) % Plt Count 143 L (150-450) k/uL Neutrophils # 11.7 H (1.3-7.7) k/uL Lymphocytes # 0.2 L (1.0-4.8) k/uL Sodium (137-145) mmol/L Glucose (74-99) mg/dL POC Glucose (mg/dL) 151 H 115 H (75-99) mg/dL 01/31/17 01/31/17 Range/Units 02:17 07:17 WBC (3.8-10.6) k/uL RBC (4.30-5.90) m/uL Hgb (13.0-17.5) gm/dL Hct (39.0-53.0) % Plt Count (150-450) k/uL Neutrophils # (1.3-7.7) k/uL Lymphocytes # (1.0-4.8) k/uL Sodium 136 L (137-145) mmol/L Glucose 139 H (74-99) mg/dL POC Glucose (mg/dL) 101 H (75-99) mg/dL Assessment and Plan Plan: Impression: #1 Acute exacerbation of oxygen dependent chronic obstructive pulmonary disease. The patient is still having some shortness of breath and his acute COPD exacerbation remains symptomatic. On today's evaluation of 01/31/2017, I will suggest keeping the patient hospital for bronchodilators and systemic steroids. His recovery is not complete and he is showing some limited progress over the past 24-48 hours. #2 Remote history of chronic tobacco dependence. #3 History of asbestos exposure. #4 Coronary artery disease with previous coronary bypass grafting and stent placements. #5 Ischemic cardio myopathy. #6 Hypertension. #7 Hyperlipidemia. #8 Benign prosthetic hypertrophy. #9 History of influenza A infection. Plan Continue same treatment. Continue insulin Medrol. We'll follow.
[2017-01-31 17:27] LABS: Glucose,Whole Blood 115 mg/dL (75-99)
[2017-01-31] MEDS: MELATONIN 3 MG TABLET PO SCH (20:40)
[2017-01-31 20:49] LABS: Glucose,Whole Blood 115 mg/dL (75-99)
[2017-02-01] MEDS: ALPRAZolam 0.25 MG TAB PO PRN ×2 (06:20→15:46)
[2017-02-01 07:00] LABS: Glucose,Whole Blood 108 mg/dL (75-99)
[2017-02-01] MEDS: INSULIN LISPRO (humaLOG) 300 UNIT/3 ML VIAL SQ SCH ×4 (07:01→22:19)
[2017-02-01] MEDS: FORMOTEROL FUMARATE 20 MCG/2 ML NEBU INHALATION SCH ×3 (07:25→19:25)
[2017-02-01] MEDS: BUDESONIDE 1 MG/2 ML NEBU INHALATION SCH ×2 (07:25→19:25)
[2017-02-01] MEDS: IPRATROPIUM-ALBUTEROL 3 ML NEB INHALATION SCH ×4 (07:25→19:27)
[2017-02-01] MEDS: HEPARIN SODIUM,PORCINE 5,000 UNIT/ML 1 ML VIAL SQ SCH ×2 (08:12→21:47)
[2017-02-01] MEDS: ATORVASTATIN 80 MG TAB PO SCH (08:14)
[2017-02-01] MEDS: METOPROLOL TARTRATE 12.5 MG TAB PO SCH (08:14)
[2017-02-01] MEDS: CLOPIDOGREL 75 MG TAB PO SCH (08:14)
[2017-02-01] MEDS: methylPREDNISolone SOD SUCCI 40 MG/ML 1 ML VIAL IV SCH ×2 (08:14→16:27)
[2017-02-01] MEDS: AZITHROMYCIN 500 MG TAB PO SCH (08:15)
[2017-02-01] MEDS: ASPIRIN 81 MG CHEW PO SCH (08:15)
[2017-02-01] MEDS: PANTOPRAZOLE 40 MG TABLET PO SCH (08:15)
[2017-02-01] MEDS: ACETAMINOPHEN TAB 325 MG TAB PO PRN ×2 (08:19→15:46)
--- NOTE | 2017-02-01 08:32 | PN ---
PROGRESS NOTE DATE OF SERVICE: 01/31/2017 I am covering for Dr. Lamar. This is a progress note. This 81-year-old gentleman who was admitted with COPD exacerbation; also right bundle branch block. The patient is feeling slightly better. Patient has significant anxiety also. Dr. Sommer is following the patient closely. No chest pain. No palpitations. PHYSICAL EXAM: Alert and oriented times three. Pulse 90, blood pressure 117/66, respirations 14, temperature 98.2, pulse ox 97% on 2 L. HEENT: Conjunctivae normal. Neck: No jugular venous distention. Cardiovascular: S1, S2 muffled. RESPIRATORY: Breath sounds diminished in the bases. Bilateral scattered rhonchi and crackles. ABDOMEN: Soft. Nontender. No mass palpable. Legs no edema. No swelling. Central nervous system: Higher functions as mentioned. Moves all four limbs. No focal motor or sensory deficits. Lymphatics: No lymph nodes palpable in the neck, axillae or groin. Skin: No ulcer, rash or bleeding. LABS: WBC 12.3, hemoglobin 11.8, sodium 136. ASSESSMENT: 1. Chronic obstructive pulmonary disease acute exacerbation with acute purulent tracheobronchitis. 2. Right bundle branch block on the EKG. 3. History of coronary artery disease. 4. History of atrial fibrillation. 5. History of hyperlipidemia. 6. History of chronic hypoxic respiratory failure. RECOMMENDATIONS AND DISCUSSION: Recommend to continue current medications. Continue with monitoring and symptomatic treatment. Otherwise, at this time, I recommend continue the steroids. Continue the rest of the medications. Follow closely with Pulmonary and continue with antibiotics. Dr. Lamar will follow. Continue IV antibiotics. The patient is on IV Rocephin. MMODL / IJN: [id number] /
[2017-02-01 08:37] LABS: Basophils % (A) 0 %; CH 29.7; CHCM 33.4; Eosinophils % (A) 0 %; HCT 38.4 % (39.0-53.0); HDW 2.52; HGB 12.3 gm/dL (13.0-17.5); Luc # (Auto) 0.06; Luc % (Auto) 1; Lymphocytes # (A) 0.3 k/uL (1.0-4.8); Lymphocytes % (A) 3 %; MCH 28.7 pg (25.0-35.0); MCHC 32.1 g/dL (31.0-37.0); MCV 89.4 fL (80.0-100.0); Monocytes # (A) 0.4 k/uL (0-1.0); Monocytes % (A) 4 %; Neutrophils # (A) 8.8 k/uL (1.3-7.7); Neutrophils % (A) 93 %; RDW 15.7 % (11.5-15.5); WBC 9.6 k/uL (3.8-10.6); WBC (Perox) 10.11
[2017-02-01 08:58] LABS: Anion Gap 6 mmol/L; Blood Urea Nitrogen 19 mg/dL (9-20); Calcium 8.6 mg/dL (8.4-10.2); Carbon Dioxide 33 mmol/L (22-30); Chloride 98 mmol/L (98-107); Glucose 129 mg/dL (74-99); Non-African American GFR(MDRD) >60 (>60 ml/min/1.73 sqM); Potassium 4.6 mmol/L (3.5-5.1); Sodium 137 mmol/L (137-145)
--- NOTE | 2017-02-01 10:41 | P.PN ---
Subjective Principal diagnosis: Assessment acute on chronic COPD exacerbation with acute purulent tracheobronchitis. Chronic respiratory failure O2 dependent Right bundle-branch block history of coronary disease with bypass and stents ischemic cardiomyopathy History of atrial fibrillation Hyperlipidemia History of chronic hypoxic respiratory failure Hypertension Plan Continue consultation with pulmonology Continues on Rocephin bronchodilators and steroids Objective - Vital Signs Vital signs: Vital Signs Temp 97.3 F L 02/01/17 07:00 Pulse 80 02/01/17 07:38 Resp 18 02/01/17 07:00 BP 118/67 02/01/17 07:00 Pulse Ox 96 02/01/17 07:00 Intake & Output 01/31/17 02/01/17 02/01/17 18:59 06:59 18:59 Intake Total 290 Balance 290 Intake: Oral 290 Other: Voiding Method Toilet # Voids 3 1 1 # Bowel Movements 0 1 - Constitutional General appearance: Present: mild distress - EENT Eyes: Present: PERRLA Ears: bilateral: normal - Neck Neck: Present: normal ROM - Respiratory Respiratory: bilateral: diminished - Cardiovascular Rhythm: irregularly irregular - Gastrointestinal General gastrointestinal: Present: soft - Integumentary Integumentary: Present: normal - Neurologic Neurologic: Present: CNII-XII intact - Musculoskeletal Musculoskeletal: Present: generalized weakness - Psychiatric Psychiatric: Present: A&O x's 3, appropriate affect, intact judgment & insight - Labs CBC & Chem 7: 02/01/17 08:22 02/01/17 08:22 Labs: Abnormal Lab Results - Last 24 Hours (Table) 01/31/17 01/31/17 02/01/17 Range/Units 17:03 20:36 06:58 Hgb (13.0-17.5) gm/dL Hct (39.0-53.0) % RDW (11.5-15.5) % Plt Count (150-450) k/uL Neutrophils # (1.3-7.7) k/uL Lymphocytes # (1.0-4.8) k/uL Carbon Dioxide (22-30) mmol/L Glucose (74-99) mg/dL POC Glucose (mg/dL) 115 H 115 H 108 H (75-99) mg/dL 02/01/17 02/01/17 Range/Units 08:22 08:22 Hgb 12.3 L (13.0-17.5) gm/dL Hct 38.4 L (39.0-53.0) % RDW 15.7 H (11.5-15.5) % Plt Count 145 L (150-450) k/uL Neutrophils # 8.8 H (1.3-7.7) k/uL Lymphocytes # 0.3 L (1.0-4.8) k/uL Carbon Dioxide 33 H (22-30) mmol/L Glucose 129 H (74-99) mg/dL POC Glucose (mg/dL) (75-99) mg/dL - Imaging and Cardiology Chest x-ray: report reviewed
[2017-02-01 10:47] VITALS: BMI 20.3
[2017-02-01] MEDS: MULTIVITAMINS, THERA 1 EACH TAB PO SCH (11:39)
[2017-02-01 12:03] LABS: Glucose,Whole Blood 119 mg/dL (75-99)
--- NOTE | 2017-02-01 12:59 | P.PN ---
Subjective This is a very pleasant 81-year-old gentleman who follows with Dr. Pierre Lamar as his primary care physician. He has a history of coronary artery disease with previous coronary artery bypass grafting and stent placements, ischemic cardiomyopathy, hypertension, hyperlipidemia and benign prosthetic hypertrophy. He also has a history of oxygen dependent chronic obstructive pulmonary disease and follows with Dr. Chester in our office for the same. He has had previous asbestos exposure. He has a 20 year smoking history however quit 25 years ago. He has been maintained on bronchodilators in the outpatient setting. He presented here early this morning via EMS after waking approximate 3 AM with sudden shortness of breath. He denied any cough or congestion. No chills or night sweats. He was quite dyspneic on minimal exertion. Wheezing and bronchospastic. His chest x-ray does not reveal any acute pulmonary process. No leukocytosis. ProBNP level 265. He is afebrile. Hemodynamically stable. Maintaining good O2 saturations in the upper 90s on 2 L/m per nasal cannula. The patient is seen again today 01/29/2017 in follow-up on the regular medical floor. He is awake and alert in no acute distress. He is not much improved today as compared to yesterday. Still dyspneic with minimal exertion. He has a loose nonproductive cough. No chills or night sweats. He is maintaining O2 saturations up to 100% on 2 L/m per nasal cannula. He's been afebrile. He remains on bronchodilators, Pulmicort, IV Solu-Medrol and empiric antibiotics in the form of ceftriaxone and azithromycin. On 01/30/2017 the patient is being seen in follow-up. He still bronchospastic and wheezy. Earlier this morning he started having some shortness of breath especially with activity. Currently is at rest. He is on bronchodilators and systemic steroids. Is on a combination of Rocephin and Zithromax. We'll give him another 24 hours in regards to COPD exacerbation. The chest x-ray showed COPD and minimal right-sided pleural effusion and tiny left 01/31/2017 the patient is essentially the same. He still bronchospastic and wheezy. Earlier this morning he was again shortness of breath and he is currently less wheezy compared to yesterday. No new complaints otherwise. I' ll keep him on IV Solu Medrol for another 24 hours. Antibiotics will be kept unchanged. Continue bronchodilators. The patient is seen again today 02/01/2017 in follow-up on the regular medical floor. He remains awake and alert in no acute distress. He has been slow to progress. He states he is still not quite back to his baseline. He is maintaining O2 saturations in the mid 90s on 2 L/m per nasal cannula. He is afebrile. No leukocytosis. Objective - Vital Signs Vital signs: Vital Signs Temp 97.3 F L 02/01/17 07:00 Pulse 84 02/01/17 11:17 Resp 18 02/01/17 07:00 BP 118/67 02/01/17 07:00 Pulse Ox 96 02/01/17 07:00 Intake & Output 01/31/17 02/01/17 02/01/17 18:59 06:59 18:59 Intake Total 290 Balance 290 Weight 59 kg Intake: Oral 290 Other: Voiding Method Toilet # Voids 3 1 1 # Bowel Movements 0 1 - Exam GENERAL EXAM: Alert, active, comfortable in no apparent distress. HEAD: Normocephalic. Hard of hearing. EYES: Normal reaction of pupils, equal size. NOSE: Clear with pink turbinates. THROAT: No erythema or exudates. NECK: No masses, no JVD. CHEST: No chest wall deformity. LUNGS: Equal air entry with faint end expiratory wheeze. Diminished. CVS: S1 and S2 normal with no audible murmurs, regular rhythm. ABDOMEN: No hepatosplenomegaly, normal bowel sounds, no guarding or rigidity. SPINE: No scoliosis or deformity SKIN: No rashes CENTRAL NERVOUS SYSTEM: No focal deficits, tone is normal in all 4 extremities. Extremities: There is no peripheral edema. No clubbing, no cyanosis. Peripheral pulses are intact. - Labs CBC & Chem 7: 02/01/17 08:22 02/01/17 08:22 Labs: Abnormal Lab Results - Last 24 Hours (Table) 01/31/17 01/31/17 02/01/17 Range/Units 17:03 20:36 06:58 Hgb (13.0-17.5) gm/dL Hct (39.0-53.0) % RDW (11.5-15.5) % Plt Count (150-450) k/uL Neutrophils # (1.3-7.7) k/uL Lymphocytes # (1.0-4.8) k/uL Carbon Dioxide (22-30) mmol/L Glucose (74-99) mg/dL POC Glucose (mg/dL) 115 H 115 H 108 H (75-99) mg/dL 02/01/17 02/01/17 02/01/17 Range/Units 08:22 08:22 12:01 Hgb 12.3 L (13.0-17.5) gm/dL Hct 38.4 L (39.0-53.0) % RDW 15.7 H (11.5-15.5) % Plt Count 145 L (150-450) k/uL Neutrophils # 8.8 H (1.3-7.7) k/uL Lymphocytes # 0.3 L (1.0-4.8) k/uL Carbon Dioxide 33 H (22-30) mmol/L Glucose 129 H (74-99) mg/dL POC Glucose (mg/dL) 119 H (75-99) mg/dL Assessment and Plan Plan: Impression: #1 Acute exacerbation of oxygen dependent chronic obstructive pulmonary disease. #2 Remote history of chronic tobacco dependence. #3 History of asbestos exposure. #4 Coronary artery disease with previous coronary bypass grafting and stent placements. #5 Ischemic cardio myopathy. #6 Hypertension. #7 Hyperlipidemia. #8 Benign prosthetic hypertrophy. #9 History of influenza A infection. Plan: The patient was seen and evaluated by Dr. Chester. We will continue with his current treatment for COPD exacerbation including bronchodilators, Pulmicort inhalations, IV Solu- Medrol. He remains on empiric antibiotics in the form of ceftriaxone and azithromycin. He is on heparin for DVT prophylaxis. Protonix for GI prophylaxis. We will increase his activity as tolerated. We will repeat his chest x-ray. We will continue to follow.
[2017-02-01 17:45] LABS: Glucose,Whole Blood 124 mg/dL (75-99)
[2017-02-01 20:42] LABS: Glucose,Whole Blood 129 mg/dL (75-99)
[2017-02-01] MEDS: MELATONIN 3 MG TABLET PO SCH (22:18)
[2017-02-02] MEDS: methylPREDNISolone SOD SUCCI 40 MG/ML 1 ML VIAL IV SCH ×2 (00:32→08:09)
[2017-02-02] MEDS: ALPRAZolam 0.25 MG TAB PO PRN ×2 (03:30→12:10)
[2017-02-02] MEDS: FORMOTEROL FUMARATE 20 MCG/2 ML NEBU INHALATION SCH (07:09)
[2017-02-02] MEDS: IPRATROPIUM-ALBUTEROL 3 ML NEB INHALATION SCH ×2 (07:09→11:30)
[2017-02-02] MEDS: BUDESONIDE 1 MG/2 ML NEBU INHALATION SCH (07:09)
[2017-02-02 07:17] LABS: Glucose,Whole Blood 111 mg/dL (75-99)
[2017-02-02] MEDS: INSULIN LISPRO (humaLOG) 300 UNIT/3 ML VIAL SQ SCH ×2 (07:27→12:11)
[2017-02-02 07:34] VITALS: BP 112/64; RESP 16; TEMP 97.7
[2017-02-02] MEDS: HEPARIN SODIUM,PORCINE 5,000 UNIT/ML 1 ML VIAL SQ SCH (08:07)
[2017-02-02] MEDS: ATORVASTATIN 80 MG TAB PO SCH (08:09)
[2017-02-02] MEDS: METOPROLOL TARTRATE 12.5 MG TAB PO SCH (08:09)
[2017-02-02] MEDS: AZITHROMYCIN 500 MG TAB PO SCH (08:09)
[2017-02-02] MEDS: CLOPIDOGREL 75 MG TAB PO SCH (08:09)
[2017-02-02] MEDS: FUROSEMIDE 20 MG TAB PO SCH (08:09)
[2017-02-02] MEDS: PANTOPRAZOLE 40 MG TABLET PO SCH (08:09)
[2017-02-02] MEDS: ASPIRIN 81 MG CHEW PO SCH (08:10)
[2017-02-02 09:05] LABS: Basophils % (A) 0 %; CH 29.8; CHCM 33.2; Eosinophils % (A) 0 %; HCT 42.5 % (39.0-53.0); HDW 2.48; HGB 13.4 gm/dL (13.0-17.5); Luc # (Auto) 0.12; Luc % (Auto) 1; Lymphocytes # (A) 0.4 k/uL (1.0-4.8); Lymphocytes % (A) 3 %; MCH 28.4 pg (25.0-35.0); MCHC 31.5 g/dL (31.0-37.0); MCV 90.1 fL (80.0-100.0); Monocytes # (A) 0.5 k/uL (0-1.0); Monocytes % (A) 4 %; Neutrophils # (A) 11.7 k/uL (1.3-7.7); Neutrophils % (A) 92 %; RBC 4.71 m/uL (4.30-5.90); RDW 15.4 % (11.5-15.5); WBC 12.7 k/uL (3.8-10.6); WBC (Perox) 12.27
[2017-02-02 09:23] LABS: Anion Gap 6 mmol/L; Blood Urea Nitrogen 21 mg/dL (9-20); Calcium 8.6 mg/dL (8.4-10.2); Carbon Dioxide 33 mmol/L (22-30); Chloride 98 mmol/L (98-107); Glucose 110 mg/dL (74-99); Non-African American GFR(MDRD) >60 (>60 ml/min/1.73 sqM); Potassium 4.9 mmol/L (3.5-5.1); Sodium 137 mmol/L (137-145)
--- NOTE | 2017-02-02 09:34 | XR ---
EXAMINATION TYPE: XR chest 2V DATE OF EXAM: 02/02/2017 COMPARISON: 01/28/2017, 10/07/2015 INDICATION: COPD, previous abnormal chest TECHNIQUE: Frontal and lateral views of the chest are obtained. FINDINGS: The heart size is normal. The pulmonary vasculature is normal. There is hyperinflation flattened diaphragms compatible with emphysematous changes. There is thickeni ng at the left apex some possible scarring. Peripheral nodule or pleural plaque may be present in the left peripheral lung. Right and left small pleural fluid collections may be present on the frontal p rojection.. IMPRESSION: 1. Changes compatible COPD. Some scarring may be at the left apex is stable from September 2015. Small post erior pleural effusions may be present.
--- NOTE | 2017-02-02 10:52 | P.PN ---
Subjective This is a very pleasant 81-year-old gentleman who follows with Dr. Pierre Lamar as his primary care physician. He has a history of coronary artery disease with previous coronary artery bypass grafting and stent placements, ischemic cardiomyopathy, hypertension, hyperlipidemia and benign prosthetic hypertrophy. He also has a history of oxygen dependent chronic obstructive pulmonary disease and follows with Dr. Chester in our office for the same. He has had previous asbestos exposure. He has a 20 year smoking history however quit 25 years ago. He has been maintained on bronchodilators in the outpatient setting. He presented here early this morning via EMS after waking approximate 3 AM with sudden shortness of breath. He denied any cough or congestion. No chills or night sweats. He was quite dyspneic on minimal exertion. Wheezing and bronchospastic. His chest x-ray does not reveal any acute pulmonary process. No leukocytosis. ProBNP level 265. He is afebrile. Hemodynamically stable. Maintaining good O2 saturations in the upper 90s on 2 L/m per nasal cannula. The patient is seen again today 01/29/2017 in follow-up on the regular medical floor. He is awake and alert in no acute distress. He is not much improved today as compared to yesterday. Still dyspneic with minimal exertion. He has a loose nonproductive cough. No chills or night sweats. He is maintaining O2 saturations up to 100% on 2 L/m per nasal cannula. He's been afebrile. He remains on bronchodilators, Pulmicort, IV Solu-Medrol and empiric antibiotics in the form of ceftriaxone and azithromycin. On 01/30/2017 the patient is being seen in follow-up. He still bronchospastic and wheezy. Earlier this morning he started having some shortness of breath especially with activity. Currently is at rest. He is on bronchodilators and systemic steroids. Is on a combination of Rocephin and Zithromax. We'll give him another 24 hours in regards to COPD exacerbation. The chest x-ray showed COPD and minimal right-sided pleural effusion and tiny left 01/31/2017 the patient is essentially the same. He still bronchospastic and wheezy. Earlier this morning he was again shortness of breath and he is currently less wheezy compared to yesterday. No new complaints otherwise. I' ll keep him on IV Solu Medrol for another 24 hours. Antibiotics will be kept unchanged. Continue bronchodilators. The patient is seen again today 02/01/2017 in follow-up on the regular medical floor. He remains awake and alert in no acute distress. He has been slow to progress. He states he is still not quite back to his baseline. He is maintaining O2 saturations in the mid 90s on 2 L/m per nasal cannula. He is afebrile. No leukocytosis. The patient is seen again today 02/02/2017 in follow-up on the regular medical floor. He is awake and alert in no acute distress. He is breathing better today as compared to yesterday. Feeling back to his baseline. Follow-up chest x-ray reveals evidence of chronic obstructive pulmonary disease but no acute pulmonary process. There is noted chronic scarring in the left apex. Objective - Vital Signs Vital signs: Vital Signs Temp 97.7 F 02/02/17 07:00 Pulse 88 02/02/17 07:32 Resp 16 02/02/17 07:00 BP 112/64 02/02/17 07:00 Pulse Ox 98 02/02/17 07:00 Intake & Output 02/01/17 02/02/17 02/02/17 18:59 06:59 18:59 Weight 59 kg Other: Voiding Method Toilet # Voids 4 7 # Bowel Movements 1 1 - Exam GENERAL EXAM: Alert, active, comfortable in no apparent distress. HEAD: Normocephalic. Hard of hearing. EYES: Normal reaction of pupils, equal size. NOSE: Clear with pink turbinates. THROAT: No erythema or exudates. NECK: No masses, no JVD. CHEST: No chest wall deformity. LUNGS: Equal air entry with faint end expiratory wheeze. Diminished. CVS: S1 and S2 normal with no audible murmurs, regular rhythm. ABDOMEN: No hepatosplenomegaly, normal bowel sounds, no guarding or rigidity. SPINE: No scoliosis or deformity SKIN: No rashes CENTRAL NERVOUS SYSTEM: No focal deficits, tone is normal in all 4 extremities. Extremities: There is no peripheral edema. No clubbing, no cyanosis. Peripheral pulses are intact. - Labs CBC & Chem 7: 02/02/17 08:36 02/02/17 08:36 Labs: Abnormal Lab Results - Last 24 Hours (Table) 02/01/17 02/01/1702/01/17 Range/Units 12:01 17:43 20:39 WBC (3.8-10.6) k/uL Neutrophils # (1.3-7.7) k/uL Lymphocytes # (1.0-4.8) k/uL Carbon Dioxide (22-30) mmol/L BUN (9-20) mg/dL Glucose (74-99) mg/dL POC Glucose (mg/dL) 119 H 124 H 129 H (75-99) mg/dL 02/02/17 02/02/17 02/02/17 Range/Units 06:43 08:36 08:36 WBC 12.7 H (3.8-10.6) k/uL Neutrophils # 11.7 H (1.3-7.7) k/uL Lymphocytes # 0.4 L (1.0-4.8) k/uL Carbon Dioxide 33 H (22-30) mmol/L BUN 21 H (9-20) mg/dL Glucose 110 H (74-99) mg/dL POC Glucose (mg/dL) 111 H (75-99) mg/dL Assessment and Plan Plan: Impression: #1 Acute exacerbation of oxygen dependent chronic obstructive pulmonary disease. #2 Remote history of chronic tobacco dependence. #3 History of asbestos exposure. #4 Coronary artery disease with previous coronary bypass grafting and stent placements. #5 Ischemic cardio myopathy. #6 Hypertension. #7 Hyperlipidemia. #8 Benign prosthetic hypertrophy. #9 History of influenza A infection. Plan: The patient was seen and evaluated by Dr. Chester. His chest x-ray and labs are reviewed. He is cleared for discharge from the pulmonary standpoint. He'll complete his course of antibiotics and a prednisone taper along with his usual home pulmonary medications. He'll follow-up in our office in 1-2 weeks' time. He is however encouraged to call sooner with any recurrence of symptoms or other questions or concerns.
--- NOTE | 2017-02-02 11:28 | P.DS ---
Providers Date of admission: 01/30/17 17:29 Expected date of discharge: 02/02/17 Attending physician: Pierre Lamar Consults: 01/28/17 10:39 Consult Physician Routine Consulting Provider: Nasir Chester Consult Reason/Comments: dyspnea Do you want consulting provider notified?: Yes Primary care physician: Pierre Lamar Hospital Course: 81-year-old male was admitted to the emergency room with complaints of increasing shortness of breath patient has a history of COPD right bundle- branch block. Patient was evaluated by pulmonology treated with Rocephin and Zithromax bronchodilators and steroids. Patient states that he is improving and was to be discharged home Assessment Acute on chronic COPD with acute exacerbation acute purulent tracheobronchitis O2 dependent history of right bundle-branch block History of coronary disease with bypass and stent placement ischemic cardiomyopathy History of atrial fibrillation Hyperlipidemia History of chronic hypoxic respiratory failure on home O2 Hypertension Plan Discharge home Finish course of antibiotics Prednisone taper Home medications Follow-up with family physician in pulmonology Plan - Discharge Summary New Discharge Prescriptions: New Azithromycin [Zithromax Z-pack] 250 mg PO DIRECTED #6 tab predniSONE 20 mg PO BID #10 tab No Action Metoprolol Tartrate [Lopressor] 12.5 mg PO DAILY Clopidogrel Bisulfate [Plavix] 75 mg PO DAILY Atorvastatin [Lipitor] 80 mg PO DAILY Aspirin EC [Ecotrin Low Dose] 81 mg PO DAILY Furosemide [Lasix] 20 mg PO MOWEFR Albuterol Nebulized [Ventolin Nebulized] 2.5 mg INHALATION RT-QID Discharge Medication List Aspirin EC [Ecotrin Low Dose] 81 mg PO DAILY 08/20/16 [History] Atorvastatin [Lipitor] 80 mg PO DAILY 08/20/16 [History] Clopidogrel Bisulfate [Plavix] 75 mg PO DAILY 08/20/16 [History] Furosemide [Lasix] 20 mg PO MOWEFR 08/20/16 [History] Metoprolol Tartrate [Lopressor] 12.5 mg PO DAILY 08/20/16 [History] Albuterol Nebulized [Ventolin Nebulized] 2.5 mg INHALATION RT-QID 01/28/17 [ History] Azithromycin [Zithromax Z-pack] 250 mg PO DIRECTED #6 tab 01/28/17 [Rx] predniSONE 20 mg PO BID #10 tab 09/01/17 [Rx] Follow up Appointment(s)/Referral(s): Pierre Lamar MD [Primary Care Provider] - 1-2 days
[2017-02-02 11:40] LABS: Glucose,Whole Blood 143 mg/dL (75-99)
[2017-02-02 11:42] VITALS: PULSE 88
[2017-02-02] MEDS: ACETAMINOPHEN TAB 325 MG TAB PO PRN (12:10)
[2017-02-02] MEDS: MULTIVITAMINS, THERA 1 EACH TAB PO SCH (12:11)
== END 2017-02-02 14:55 | disposition home or self-care (01) | DRG 191 ==
LOC: EC 07:16 → 5MS5E 10:39 → 4MS4W 12:52 → OBSVTOIN 01-30 17:29
PROVIDERS: ADMIT Family Medicine; ATTEND Family Medicine
DX: J44.0 Chronic obstructive pulmonary disease with (acute) lower respiratory infection (principal); J96.11 Chronic respiratory failure with hypoxia; Z99.81 Dependence on supplemental oxygen; I48.91 Unspecified atrial fibrillation; I25.5 Ischemic cardiomyopathy; J44.1 Chronic obstructive pulmonary disease with (acute) exacerbation; I45.10 Unspecified right bundle-branch block; Z95.1 Presence of aortocoronary bypass graft; J20.9 Acute bronchitis, unspecified; I25.10 Atherosclerotic heart disease of native coronary artery without angina pectoris; I10 Essential (primary) hypertension; F41.9 Anxiety disorder, unspecified; E78.5 Hyperlipidemia, unspecified; N40.0 Benign prostatic hyperplasia without lower urinary tract symptoms; R53.1 Weakness; H54.7 Unspecified visual loss; H91.90 Unspecified hearing loss, unspecified ear; Z71.3 Dietary counseling and surveillance; Z86.19 Personal history of other infectious and parasitic diseases; Z79.02 Long term (current) use of antithrombotics/antiplatelets; Z79.82 Long term (current) use of aspirin; Z79.52 Long term (current) use of systemic steroids; Z77.090 Contact with and (suspected) exposure to asbestos; Z87.891 Personal history of nicotine dependence; Z83.3 Family history of diabetes mellitus; Z79.899 Other long term (current) drug therapy; Z95.5 Presence of coronary angioplasty implant and graft; Z82.49 Family history of ischemic heart disease and other diseases of the circulatory system; Z86.79 Personal history of other diseases of the circulatory system; Z87.828 Personal history of other (healed) physical injury and trauma; Z87.440 Personal history of urinary (tract) infections; Z90.79 Acquired absence of other genital organ(s); Z87.09 Personal history of other diseases of the respiratory system
CPT/HCPCS: 36415; 71020; 80048; 80053; 82550; 82553; 83036; 83605; 83880; 84484; 85025; 85610; 85730; 93005; 94640; 94760; 96374; 99285

== ENCOUNTER 2017-06-08 15:39 | Emergency (ER) | payer MEDICARE, BC ==
[2017-06-08 15:45] VITALS: TEMP 97.6
[2017-06-08 16:20] LABS: Basophils % (A) 0 %; Eosinophils # (A) 0.2 k/uL (0-0.7); Eosinophils % (A) 2 %; HCT 46.5 % (39.0-53.0); HGB 14.6 gm/dL (13.0-17.5); Lymphocytes # (A) 0.6 k/uL (1.0-4.8); Lymphocytes % (A) 7 %; MCH 28.8 pg (25.0-35.0); MCHC 31.3 g/dL (31.0-37.0); MCV 91.8 fL (80.0-100.0); Monocytes # (A) 0.5 k/uL (0-1.0); Monocytes % (A) 6 %; Neutrophils % (A) 83 %; Platelet Count 160 k/uL (150-450); RBC 5.07 m/uL (4.30-5.90); RDW 13.7 % (11.5-15.5); WBC 8.5 k/uL (3.8-10.6)
[2017-06-08 16:29] LABS: Partial Thromboplastin Time 23.1 sec (22.0-30.0)
[2017-06-08 16:31] LABS: ALT 31 U/L (21-72); AST 45 U/L (17-59); Albumin 4.3 g/dL (3.5-5.0); Alkaline Phosphatase 84 U/L (38-126); Anion Gap 10 mmol/L; Blood Urea Nitrogen 11 mg/dL (9-20); Calcium 9.6 mg/dL (8.4-10.2); Carbon Dioxide 34 mmol/L (22-30); Chloride 95 mmol/L (98-107); Glucose 81 mg/dL (74-99); Magnesium 2.1 mg/dL (1.6-2.3); Potassium 5.2 mmol/L (3.5-5.1); Sodium 139 mmol/L (137-145); Total Bilirubin 0.6 mg/dL (0.2-1.3); Total Protein 7.2 g/dL (6.3-8.2)
--- NOTE | 2017-06-08 16:32 | XR ---
EXAMINATION TYPE: XR chest 1V portable DATE OF EXAM: 06/08/2017 COMPARISON: Or chest x-ray 02/02/[address] 05/03/2013 HISTORY: Shortness of breath and COPD TECHNIQUE: Single frontal view of the chest is obtained. FINDINGS: Prominent lung volumes are compatible with underlying COPD. Patient is post median sternot margaux. Heart is small. There are areas of scarring as noted on previous exam. No evident pneumothorax. Prominence of pulmonary artery could be due to underlying pulmonary artery hypertension, there are ov erlying cardiac leads. Apical pleural thickening is greater on the left. 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 There are calcified pleural plaques. Old granulomatous dise ase changes are present. Question airspace disease in the right lower lobe. IMPRESSION: Asbestos related disease, emphysema, coronary artery disease. Difficult to exclude pneum onia.
[2017-06-08 16:41] LABS: Creatine Kinase 166 U/L (55-170)
[2017-06-08 16:53] LABS: Troponin I <0.012 ng/mL (0.000-0.034)
[2017-06-08 16:57] LABS: Creatine Kinase MB 3.1 ng/mL (0.0-2.4)
--- NOTE | 2017-06-08 17:45 | ED ---
General Adult HPI - General Chief complaint: Shortness of Breath Stated complaint: SOB Time Seen by Provider: 06/08/17 15:46 Source: patient, RN notes reviewed, old records reviewed Mode of arrival: wheelchair Limitations: no limitations - History of Present Illness Initial comments: This is an 82-year-old male to the ER for evaluation of shortness of breath. Patient has underlying history of COPD denies chest pain no fevers. Patient's daughter is at bedside states patient called her this morning complaining of shortness of breath that gradually improved with any called around lunch [place] her to come home. When she got home patient was feeling better but this to the patient to family doctor who sent patient to emergency room for further evaluation. At this time patient's in no acute distress denies any significant shortness of breath or chest pain. - Related Data Home Medications Medication Instructions Recorded Confirmed Aspirin EC [Ecotrin Low Dose] 81 mg PO DAILY 08/20/16 06/08/17 Atorvastatin [Lipitor] 80 mg PO DAILY 08/20/16 06/08/17 Clopidogrel Bisulfate [Plavix] 75 mg PO DAILY 08/20/16 06/08/17 Furosemide [Lasix] 20 mg PO MOWEFR 08/20/16 06/08/17 Metoprolol Tartrate [Lopressor] 12.5 mg PO DAILY 08/20/16 06/08/17 Umeclidinium Brm/Vilanterol Tr 1 puff INHALATION RT-DAILY 06/08/17 06/08/17 [Anoro Ellipta 62.5-25 Mcg INH] Allergies Allergy/AdvReac Type Severity Reaction Status Date / Time No Known Allergies Allergy Verified 06/08/17 16:22 Review of Systems ROS Statement: Those systems with pertinent positive or pertinent negative responses have been documented in the HPI. ROS Other: All systems not noted in ROS Statement are negative. Past Medical History Past Medical History: Atrial Fibrillation, Coronary Artery Disease (CAD), Chest Pain / Angina, COPD, Hyperlipidemia, Prostate Disorder Additional Past Medical History / Comment(s): Pt is very [place]-daughter is concerned because pt will smile and nod his head yes if he doesn't hear you. Other hx: Asbestos exposure, home O2 at 2L/NC ATC, epistaxis with acute blood loss anemia, ishemic cardiomyopathy, BPH with surgery, UTI, hypotension. History of Any Multi-Drug Resistant Organisms: None Reported Past Surgical History: Coronary Bypass/CABG, Heart Catheterization, Hernia Repair, Prostate Surgery Additional Past Surgical History / Comment(s): CABG about 10 yrs ago in [place], L leg surgery to repair d/t trauma, R inguinal hernia repair, pt thinks he had a TURP. Past Anesthesia/Blood Transfusion Reactions: Postoperative Nausea & Vomiting ( PONV) Past Psychological History: No Psychological Hx Reported Smoking Status: Former smoker Past Alcohol Use History: None Reported Past Drug Use History: None Reported - Past Family History Father Family Medical History: Diabetes Mellitus, Myocardial Infarction ([place]) Additional Family Medical History / Comment(s): Father of a [place] at the age of about 70 yrs. Mother Family Medical History: No Reported History Additional Family Medical History / Comment(s): Mother lived to be 80yrs old. General Exam Limitations: no limitations General appearance: alert, in no apparent distress, anxious Head exam: Present: atraumatic, normocephalic, normal inspection Eye exam: Present: normal appearance, PERRL, EOMI. Absent: scleral icterus, conjunctival injection, periorbital swelling ENT exam: Present: normal exam, mucous membranes moist Neck exam: Present: normal inspection. Absent: tenderness, meningismus, lymphadenopathy Respiratory exam: Present: normal lung sounds bilaterally, wheezes, decreased breath sounds, prolonged expiratory. Absent: respiratory distress, rales, rhonchi, stridor Cardiovascular Exam: Present: regular rate, normal rhythm, normal heart sounds. Absent: systolic murmur, diastolic murmur, rubs, gallop, clicks GI/Abdominal exam: Present: soft, normal bowel sounds. Absent: distended, tenderness, guarding, rebound, rigid Extremities exam: Present: normal inspection, full ROM, normal capillary refill. Absent: tenderness, pedal edema, joint swelling, calf tenderness Back exam: Present: normal inspection Neurological exam: Present: alert, oriented X3, CN II-XII intact Psychiatric exam: Present: normal affect, normal mood Skin exam: Present: warm, dry, intact, normal color. Absent: rash Course Vital Signs 06/08/17 06/08/17 06/08/17 15:43 16:06 17:20 Temperature 97.6 F 97.6 F Pulse Rate 88 71 81 Respiratory 20 16 18 Rate Blood Pressure 122/58 169/79 122/88 O2 Sat by Pulse 97 95 96 Oximetry EKG Findings - EKG Comments: EKG Findings:: EKG shows normal sinus rhythm rate of 74, TN 132, QRS 128, QTc 437 Medical Decision Making - Medical Decision Making 82 male the ER with history of COPD and asbestosis, patient coming in with cough congestion difficulty with breathing, symptoms much improved upon arrival in emergency room, early developing pneumonia, we'll treat with antibiotics, patient will be discharged home on antibiotics and steroids to continue breathing treatments - Lab Data Result diagrams: 06/08/17 15:55 06/08/17 15:55 Lab Results 06/08/17 06/08/17 06/08/17 Range/Units 15:55 15:55 15:55 WBC 8.5 (3.8-10.6) k/uL RBC 5.07 (4.30-5.90) m/uL Hgb 14.6 (13.0-17.5) gm/dL Hct 46.5 (39.0-53.0) % MCV 91.8 (80.0-100.0) fL MCH 28.8 (25.0-35.0) pg MCHC 31.3 (31.0-37.0) g/dL RDW 13.7 (11.5-15.5) % Plt Count 160 (150-450) k/uL Neutrophils % 83 % Lymphocytes % 7 % Monocytes % 6 % Eosinophils % 2 % Basophils % 0 % Neutrophils # 7.0 (1.3-7.7) k/uL Lymphocytes # 0.6 L (1.0-4.8) k/uL Monocytes # 0.5 (0-1.0) k/uL Eosinophils # 0.2 (0-0.7) k/uL Basophils # 0.0 (0-0.2) k/uL PT (9.0-12.0) sec INR (<1.2) APTT (22.0-30.0) sec Sodium 139 (137-145) mmol/L Potassium 5.2 H (3.5-5.1) mmol/L Chloride 95 L (98-107) mmol/L Carbon Dioxide 34 H (22-30) mmol/L Anion Gap 10 mmol/L BUN 11 (9-20) mg/dL Creatinine 0.75 (0.66-1.25) mg/dL Est GFR (MDRD) Af Amer >60 (>60 ml/min/1.73 sqM) Est GFR (MDRD) Non-Af >60 (>60 ml/min/1.73 sqM) Glucose 81 (74-99) mg/dL Calcium 9.6 (8.4-10.2) mg/dL Magnesium 2.1 (1.6-2.3) mg/dL Total Bilirubin 0.6 (0.2-1.3) mg/dL AST 45 (17-59) U/L ALT 31 (21-72) U/L Alkaline Phosphatase 84 (38-126) U/L Total Creatine Kinase 166 (55-170) U/L CK-MB (CK-2) 3.1 H* (0.0-2.4) ng/mL CK-MB (CK-2) Rel Index 1.9 Troponin I <0.012 (0.000-0.034) ng/mL NT-Pro-B Natriuret Pep pg/mL Total Protein 7.2 (6.3-8.2) g/dL Albumin 4.3 (3.5-5.0) g/dL 06/08/17 06/08/17 Range/Units 15:55 15:55 WBC (3.8-10.6) k/uL RBC (4.30-5.90) m/uL Hgb (13.0-17.5) gm/dL Hct (39.0-53.0) % MCV (80.0-100.0) fL MCH (25.0-35.0) pg MCHC (31.0-37.0) g/dL RDW (11.5-15.5) % Plt Count (150-450) k/uL Neutrophils % % Lymphocytes % % Monocytes % % Eosinophils % % Basophils % % Neutrophils # (1.3-7.7) k/uL Lymphocytes # (1.0-4.8) k/uL Monocytes # (0-1.0) k/uL Eosinophils # (0-0.7) k/uL Basophils # (0-0.2) k/uL PT 10.0 (9.0-12.0) sec INR 1.0 (<1.2) APTT 23.1 (22.0-30.0) sec Sodium (137-145) mmol/L Potassium (3.5-5.1) mmol/L Chloride (98-107) mmol/L Carbon Dioxide (22-30) mmol/L Anion Gap mmol/L BUN (9-20) mg/dL Creatinine (0.66-1.25) mg/dL Est GFR (MDRD) Af Amer (>60 ml/min/1.73 sqM) Est GFR (MDRD) Non-Af (>60 ml/min/1.73 sqM) Glucose (74-99) mg/dL Calcium (8.4-10.2) mg/dL Magnesium (1.6-2.3) mg/dL Total Bilirubin (0.2-1.3) mg/dL AST (17-59) U/L ALT (21-72) U/L Alkaline Phosphatase (38-126) U/L Total Creatine Kinase (55-170) U/L CK-MB (CK-2) (0.0-2.4) ng/mL CK-MB (CK-2) Rel Index Troponin I (0.000-0.034) ng/mL NT-Pro-B Natriuret Pep 116 pg/mL Total Protein (6.3-8.2) g/dL Albumin (3.5-5.0) g/dL - Radiology Data Radiology results: report reviewed (Chest x-ray is likely pneumonia), image reviewed Disposition Clinical Impression: Community acquired pneumonia, Acute exacerbation of chronic obstructive airways disease Disposition: HOME SELF-CARE Condition: Good Instructions: Acute Bronchitis (ED), Chronic Bronchitis (ED) Referrals: Pierre Lamar MD [Primary Care Provider] - 1-2 days
[2017-06-08] MEDS ORDERED: methylPREDNISolone SOD SUCCI 125 MG/2 ML VIAL IV STA (17:47)
[2017-06-08] MEDS ORDERED: AZITHROMYCIN 500 MG TAB PO STA (17:47)
[2017-06-08 18:40] VITALS: BP 179/71; PULSE 74; RESP 16
== END 2017-06-08 18:40 | disposition home or self-care (01) ==
LOC: EC 15:39
DX: J44.1 Chronic obstructive pulmonary disease with (acute) exacerbation (principal); J18.9 Pneumonia, unspecified organism; I25.10 Atherosclerotic heart disease of native coronary artery without angina pectoris; I48.91 Unspecified atrial fibrillation; E78.5 Hyperlipidemia, unspecified; Z95.1 Presence of aortocoronary bypass graft; Z95.5 Presence of coronary angioplasty implant and graft; Z87.891 Personal history of nicotine dependence; Z79.82 Long term (current) use of aspirin; Z79.02 Long term (current) use of antithrombotics/antiplatelets; Z79.899 Other long term (current) drug therapy
CPT/HCPCS: 36415; 93005; 83880; 80053; 82550; 82553; 83735; 84484; 85025; 85610; 85730; 71045; 99285; 96374; J2930

== ENCOUNTER 2018-05-24 10:53 | Inpatient (IN) | payer MEDICARE, BC ==
[2018-05-24] MEDS ORDERED: ALBUTEROL NEBULIZED 2.5 MG/3 ML INHALATION STA (10:57)
[2018-05-24] MEDS ORDERED: IPRATROPIUM 0.5 MG/2.5 ML NEBU INHALATION STA (10:57)
[2018-05-24] MEDS ORDERED: LORazepam 2 MG/ML INJ IV STA (10:57)
[2018-05-24] MEDS ORDERED: MORPHINE SULFATE 4 MG/ML SYRINGE IVP STA (10:59)
[2018-05-24] MEDS ORDERED: MORPHINE SULFATE 4 MG/ML SYRINGE IVP PRN (10:59)
--- NOTE | 2018-05-24 11:02 | ED ---
SOB HPI - General Stated Complaint: Diff Breathing Time Seen by Provider: 05/24/18 10:57 Source: RN notes reviewed, old records reviewed, Caregiver Mode of arrival: EMS - History of Present Illness Initial Comments: This is an 83-year-old male to the ER for evaluation of severe shortness of breath. Patient's poor strain secondary to severe medical condition on CPAP, patient of prior by EMS as well as patient's caregiver. MD Complaint: shortness of breath, cough -: hour(s), days(s) Radiation: other (No Pain) Severity: severe Severity scale (1-10): 10 (SOB) Quality: other (no pain, severe SOB) Consistency: constant Improves With: nothing Worsens With: exertion, movement Known History Of: COPD, congestive heart failure Associated Symptoms: cough, sputum production Treatments Prior to Arrival: oxygen, bronchodilator, NIPPV - Related Data Home Medications Medication Instructions Recorded Confirmed Aspirin EC [Ecotrin Low Dose] 81 mg PO DAILY 08/20/16 05/24/18 Atorvastatin [Lipitor] 80 mg PO DAILY 08/20/16 05/24/18 Clopidogrel Bisulfate [Plavix] 75 mg PO DAILY 08/20/16 05/24/18 Furosemide [Lasix] 20 mg PO MOWEFR 08/20/16 05/24/18 Metoprolol Tartrate [Lopressor] 12.5 mg PO DAILY 08/20/16 05/24/18 Albuterol Nebulized [Ventolin 2.5 mg INHALATION RT-QID PRN 05/24/18 05/24/18 Nebulized] Ipratropium Nebulized [Atrovent 0.5 mg INHALATION RT-QID PRN 05/24/18 05/24/18 Nebulized 0.2 MG/ML] Allergies Allergy/AdvReac Type Severity Reaction Status Date / Time Iodinated Contrast- Oral and Allergy Unknown Verified 05/24/18 11:27 IV Dye Review of Systems ROS Statement: Those systems with pertinent positive or pertinent negative responses have been documented in the HPI. ROS Other: All systems not noted in ROS Statement are negative. Past Medical History Past Medical History: Atrial Fibrillation, Coronary Artery Disease (CAD), Chest Pain / Angina, COPD, Hyperlipidemia, Prostate Disorder Additional Past Medical History / Comment(s): Pt is very [place]-daughter is concerned because pt will smile and nod his head yes if he doesn't hear you. Other hx: Asbestos exposure, home O2 at 2L/[place] ATC, epistaxis with acute blood loss anemia, ishemic cardiomyopathy, BPH with surgery, UTI, hypotension. History of Any Multi-Drug Resistant Organisms: None Reported Past Surgical History: Coronary Bypass/CABG, Heart Catheterization, Hernia Repair, Prostate Surgery Additional Past Surgical History / Comment(s): CABG about 10 yrs ago in [place], [place], L leg surgery to repair d/t trauma, R inguinal hernia repair, pt thinks he had a TURP. Past Anesthesia/Blood Transfusion Reactions: Postoperative Nausea & Vomiting ( PONV) Past Psychological History: No Psychological Hx Reported Smoking Status: Former smoker Past Alcohol Use History: None Reported Past Drug Use History: None Reported - Past Family History Father Family Medical History: Diabetes Mellitus, Myocardial Infarction ([place]) Additional Family Medical History / Comment(s): Father of a [place] at the age of about 70 yrs. Mother Family Medical History: No Reported History Additional Family Medical History / Comment(s): Mother lived to be 80yrs old. General Exam General appearance: alert, anxious, in distress, cachectic Head exam: Present: atraumatic, normocephalic, normal inspection Eye exam: Present: normal appearance, PERRL, EOMI. Absent: scleral icterus, conjunctival injection, periorbital swelling ENT exam: Present: normal exam, mucous membranes moist Neck exam: Present: normal inspection. Absent: tenderness, meningismus, lymphadenopathy Respiratory exam: Present: respiratory distress, wheezes, rales, accessory muscle use, decreased breath sounds, prolonged expiratory. Absent: rhonchi, stridor Cardiovascular Exam: Present: regular rate, normal rhythm, normal heart sounds. Absent: systolic murmur, diastolic murmur, rubs, gallop, clicks GI/Abdominal exam: Present: soft, normal bowel sounds. Absent: distended, tenderness, guarding, rebound, rigid Extremities exam: Present: normal inspection, full ROM, normal capillary refill. Absent: tenderness, pedal edema, joint swelling, calf tenderness Back exam: Present: normal inspection Neurological exam: Present: alert, oriented X3, CN II-XII intact Psychiatric exam: Present: normal affect, normal mood Skin exam: Present: warm, dry, intact, normal color. Absent: rash Course Vital Signs 05/24/18 05/24/18 05/24/18 11:05 11:11 11:29 Temperature Pulse Rate 80 80 Respiratory 27 H 27 H Rate Blood Pressure 94/59 O2 Sat by Pulse 88 L Oximetry 05/24/18 05/24/18 05/24/18 11:44 12:00 12:16 Temperature Pulse Rate 74 76 70 Respiratory 14 Rate Blood Pressure 102/52 O2 Sat by Pulse 99 Oximetry 05/24/18 05/24/18 12:17 12:29 Temperature 97.3 F L Pulse Rate 78 Respiratory Rate Blood Pressure O2 Sat by Pulse Oximetry - Reevaluation(s) Reevaluation #1: 05/24/18 11:02 Medical record is reviewed Patient does have advanced directive, patient is a DO NOT RESUSCITATE Reevaluation #2: 05/24/18 13:21 Patient maintaining on BiPAP, will admit on BiPAP Medical Decision Making - Medical Decision Making 83 male the ER for evaluation of severe COPD exacerbation plus pneumonia, patient will be admitted for continued BiPAP IV antibiotics and breathing treatments. - Lab Data Result diagrams: 05/24/18 12:30 05/24/18 12:30 Lab Results 05/24/18 05/24/18 05/24/18 Range/Units 12:30 12:30 12:30 WBC 12.8 H (3.8-10.6) k/uL RBC 3.79 L (4.30-5.90) m/uL Hgb 10.7 L (13.0-17.5) gm/dL Hct 33.5 L (39.0-53.0) % MCV 88.3 (80.0-100.0) fL MCH 28.2 (25.0-35.0) pg MCHC 31.9 (31.0-37.0) g/dL RDW 14.4 (11.5-15.5) % Plt Count 270 (150-450) k/uL Neutrophils % 94 % Lymphocytes % 3 % Monocytes % 2 % Eosinophils % 0 % Basophils % 0 % Neutrophils # 12.0 H (1.3-7.7) k/uL Lymphocytes # 0.4 L (1.0-4.8) k/uL Monocytes # 0.3 (0-1.0) k/uL Eosinophils # 0.1 (0-0.7) k/uL Basophils # 0.0 (0-0.2) k/uL PT 10.6 (9.0-12.0) sec INR 1.0 (<1.2) APTT 22.1 (22.0-30.0) sec Sodium 139 (137-145) mmol/L Potassium 3.4 L (3.5-5.1) mmol/L Chloride 98 (98-107) mmol/L Carbon Dioxide 28 (22-30) mmol/L Anion Gap 13 mmol/L BUN 45 H (9-20) mg/dL Creatinine 1.49 H (0.66-1.25) mg/dL Est GFR (CKD-EPI)AfAm 50 (>60 ml/min/1.73 sqM) Est GFR (CKD-EPI)NonAf 43 (>60 ml/min/1.73 sqM) Glucose 93 (74-99) mg/dL Calcium 9.3 (8.4-10.2) mg/dL Magnesium 2.6 H (1.6-2.3) mg/dL Total Bilirubin 1.3 (0.2-1.3) mg/dL AST 429 H (17-59) U/L ALT 290 H (21-72) U/L Alkaline Phosphatase 153 H (38-126) U/L Total Creatine Kinase (55-170) U/L Total Protein 6.6 (6.3-8.2) g/dL Albumin 3.4 L (3.5-5.0) g/dL 05/24/18 Range/Units 12:30 WBC (3.8-10.6) k/uL RBC (4.30-5.90) m/uL Hgb (13.0-17.5) gm/dL Hct (39.0-53.0) % MCV (80.0-100.0) fL MCH (25.0-35.0) pg MCHC (31.0-37.0) g/dL RDW (11.5-15.5) % Plt Count (150-450) k/uL Neutrophils % % Lymphocytes % % Monocytes % % Eosinophils % % Basophils % % Neutrophils # (1.3-7.7) k/uL Lymphocytes # (1.0-4.8) k/uL Monocytes # (0-1.0) k/uL Eosinophils # (0-0.7) k/uL Basophils # (0-0.2) k/uL PT (9.0-12.0) sec INR (<1.2) APTT (22.0-30.0) sec Sodium (137-145) mmol/L Potassium (3.5-5.1) mmol/L Chloride (98-107) mmol/L Carbon Dioxide (22-30) mmol/L Anion Gap mmol/L BUN (9-20) mg/dL Creatinine (0.66-1.25) mg/dL Est GFR (CKD-EPI)AfAm (>60 ml/min/1.73 sqM) Est GFR (CKD-EPI)NonAf (>60 ml/min/1.73 sqM) Glucose (74-99) mg/dL Calcium (8.4-10.2) mg/dL Magnesium (1.6-2.3) mg/dL Total Bilirubin (0.2-1.3) mg/dL AST (17-59) U/L ALT (21-72) U/L Alkaline Phosphatase (38-126) U/L Total Creatine Kinase 985 H (55-170) U/L Total Protein (6.3-8.2) g/dL Albumin (3.5-5.0) g/dL - EKG Data -: EKG Interpreted by Me (EKG shows sinus rhythm rate of 83, SD 1.2, QRS 1:30, QTc 472) - Radiology Data Radiology results: report reviewed (Chest x-ray is positive for pneumonia), image reviewed Critical Care Time Critical Care Time: Yes Total Critical Care Time: 31 Disposition Clinical Impression: Acute exacerbation of chronic obstructive airways disease, Hypoxia, Community acquired pneumonia Disposition: ADMITTED IP TO THIS HOSP Condition: Critical Is patient prescribed a controlled substance at d/c from ED?: No Referrals: Nasir Chester MD [Primary Care Provider] - 1-2 days
[2018-05-24 13:01] LABS: Basophils % (A) 0 %; Eosinophils # (A) 0.1 k/uL (0-0.7); Eosinophils % (A) 0 %; HCT 33.5 % (39.0-53.0); HGB 10.7 gm/dL (13.0-17.5); Lymphocytes # (A) 0.4 k/uL (1.0-4.8); Lymphocytes % (A) 3 %; MCH 28.2 pg (25.0-35.0); MCHC 31.9 g/dL (31.0-37.0); MCV 88.3 fL (80.0-100.0); Mean Platelet Volume 7.4; Monocytes # (A) 0.3 k/uL (0-1.0); Monocytes % (A) 2 %; Neutrophils % (A) 94 %; Partial Thromboplastin Time 22.1 sec (22.0-30.0); Platelet Count 270 k/uL (150-450); Prothrombin Time 10.6 sec (9.0-12.0); RBC 3.79 m/uL (4.30-5.90); RDW 14.4 % (11.5-15.5); WBC 12.8 k/uL (3.8-10.6)
--- NOTE | 2018-05-24 13:07 | XR ---
EXAMINATION TYPE: XR chest 1V portable DATE OF EXAM: 05/24/2018 COMPARISON: Chest x-ray April 04, 2018 HISTORY: Shortness of breath TECHNIQUE: Single AP portable frontal upright view of the chest is obtained. FINDINGS: There is background of advanced emphysematous change with scattered parenchymal fibrosis m ost prominent in the apices and bases. There is persistent small to tiny bilateral pleural effusions or pleural thickening. There is new lateral mid to basilar and more focal right infrahilar opacities. Cardiac silhouette size is stable and within normal limits. Overlying sternal wires and mediastinal clips are redemonstrated. The osseous structures remain demineralized. IMPRESSION: Chronic emphysematous and parenchymal changes with right infrahilar acute infiltrate and lateral left mid to basilar acute infiltrate and/or atelectasis.
[2018-05-24 13:13] LABS: Albumin 3.4 g/dL (3.5-5.0); Calcium 9.3 mg/dL (8.4-10.2); Magnesium 2.6 mg/dL (1.6-2.3); Potassium 3.4 mmol/L (3.5-5.1); Total Bilirubin 1.3 mg/dL (0.2-1.3); Total Protein 6.6 g/dL (6.3-8.2)
[2018-05-24] MEDS ORDERED: LEVOFLOXACIN 750MG-D5W PMX 750 MG in DEXTROSE/WATER 1 150ML.BAG IVPB STA (13:20)
[2018-05-24] MEDS ORDERED: PIPERACILLIN-TAZOBACTAM 3.375 GM in SODIUM CHLORIDE 0.9% 100 ML IVPB STA (13:20)
[2018-05-24] MEDS ORDERED: IPRATROPIUM-ALBUTEROL 3 ML NEB INHALATION STA (13:20)
[2018-05-24] MEDS ORDERED: PNEUMONIA PROTOCOL UTILIZED 1 EACH MISC PO PRN (13:20)
[2018-05-24 13:32] LABS: Creatine Kinase MB 6.1 ng/mL (0.0-2.4)
[2018-05-24 13:46] LABS: Troponin I 0.051 ng/mL (0.000-0.034)
[2018-05-24] MEDS: SODIUM CHLORIDE 0.9% 1,000 ML IV SCH (14:44)
[2018-05-24] MEDS ORDERED: SODIUM CHLORIDE 0.9% 1,000 ML IV ONE ×2 (15:11→17:13)
--- NOTE | 2018-05-24 17:31 | P.HPIM ---
History of Present Illness Patient [id number] gentleman with a known history of COPD uses 2 L of onset at home came in with compensative severe shortness of breath started today patient doesn't have any fever doesn't have any significant cough although chest x-ray did not show pneumonia in the right middle lobe as well as left lower lobe and a probable pleural effusion in the left side. Patient is not febrile but does have leukocytosis is bit hypotensive. Patient does have elevated liver enzymes patient is not on her lower leg and at this time patient' s the BNP is only 400 creatinine of 1.49 troponin 0.051. Patient received the about 2 L of IV fluid and patient will be given 1 more liter of IV fluid followed by 100 mL of normal saline per hour probably need to be admitted to ICU discussed with enterprise systems architect. Review of Systems Patient is quite a bit lethargic not easily arousable to get review of systems history was obtained from his daughter patient is presently on BiPAP Past Medical History Past Medical History: Atrial Fibrillation, Coronary Artery Disease (CAD), Chest Pain / Angina, COPD, Hyperlipidemia, Prostate Disorder Additional Past Medical History / Comment(s): Pt is very [place]daughter is concerned because pt will smile and nod his head yes if he doesn't hear you. Other hx: Asbestos exposure, home O2 at 2L/[place] ATC, epistaxis with acute blood loss anemia, ishemic cardiomyopathy, BPH with surgery, UTI, hypotension. History of Any Multi-Drug Resistant Organisms: None Reported Past Surgical History: Coronary Bypass/CABG, Heart Catheterization, Hernia Repair, Prostate Surgery Additional Past Surgical History / Comment(s): CABG about 10 yrs ago in [place], [place], L leg surgery to repair d/t trauma, R inguinal hernia repair, pt thinks he had a TURP. Past Anesthesia/Blood Transfusion Reactions: Postoperative Nausea & Vomiting ( PONV) Past Psychological History: No Psychological Hx Reported Smoking Status: Former smoker Past Alcohol Use History: None Reported Past Drug Use History: None Reported - Past Family History Father Family Medical History: Diabetes Mellitus, Myocardial Infarction ([place]) Additional Family Medical History / Comment(s): Father of a [place] at the age of about 70 yrs. Mother Family Medical History: No Reported History Additional Family Medical History / Comment(s): Mother lived to be 80yrs old. Medications and Allergies Home Medications Medication Instructions Recorded Confirmed Type Aspirin EC [Ecotrin Low Dose] 81 mg PO DAILY 08/20/16 05/24/18 History Atorvastatin [Lipitor] 80 mg PO DAILY 08/20/16 05/24/18 History Clopidogrel Bisulfate [Plavix] 75 mg PO DAILY 08/20/16 05/24/18 History Furosemide [Lasix] 20 mg PO MOWEFR 08/20/16 05/24/18 History Metoprolol Tartrate [Lopressor] 12.5 mg PO DAILY 08/20/16 05/24/18 History Albuterol Nebulized [Ventolin 2.5 mg INHALATION RT-QID PRN 05/24/18 05/24/18 History Nebulized] Ipratropium Nebulized [Atrovent 0.5 mg INHALATION RT-QID PRN 05/24/18 05/24/18 History Nebulized 0.2 MG/ML] Allergies Allergy/AdvReac Type Severity Reaction Status Date / Time Iodinated Contrast- Oral and Allergy Unknown Verified 05/24/18 11:27 IV Dye Physical Exam Vitals: Vital Signs Temp Pulse Resp BP Pulse Ox 05/24/18 17:15 69 13 97/49 99 05/24/18 17:00 76 81/54 05/24/18 16:30 72 13 86/53 100 05/24/18 16:00 70 14 91/59 100 05/24/18 15:57 72 14 85/52 100 05/24/18 15:45 70 05/24/18 15:30 73 14 90/51 100 05/24/18 15:20 70 05/24/18 15:11 84/47 05/24/18 14:52 66 14 95/58 100 05/24/18 14:40 68 13 83/31 100 05/24/18 14:00 68 14 92/58 100 05/24/18 12:29 97.3 F L 05/24/18 12:17 78 05/24/18 12:16 70 14 102/52 99 05/24/18 12:00 76 05/24/18 11:44 74 05/24/18 11:29 80 05/24/18 11:11 27 H 05/24/18 11:05 80 27 H 94/59 88 L Intake and Output 05/24/18 05/24/18 05/24/18 06:59 14:59 22:59 Other: Weight 40.823 kg PHYSICAL EXAMINATION: GENERAL: The patient is alert and oriented x3, not in any acute distress. Bili cachectic on BiPAP with the BiPAP settings of IPAP at 15 EPAP of 840% FiO2 and respiratory rate around 12 HEENT: Pupils are round and equally reacting to light. EOMI. No scleral icterus. No conjunctival pallor. Normocephalic, atraumatic. No pharyngeal erythema. No thyromegaly. CARDIOVASCULAR: S1 and S2 present. No murmurs, rubs, or gallops. PULMONARY: Definitely diminished air entry ABDOMEN: Soft, nontender, nondistended, normoactive bowel sounds. No palpable organomegaly. MUSCULOSKELETAL: No joint swelling or deformity. EXTREMITIES: No cyanosis, clubbing, or pedal edema. NEUROLOGICAL: Gross neurological examination did not reveal any focal deficits. SKIN: No rashes. Results CBC & Chem 7: 05/24/18 12:30 05/24/18 12:30 Labs: Abnormal Lab Results - Last 24 Hours (Table) 05/24/18 05/24/18 05/24/18 Range/Units 12:30 12:30 12:30 WBC 12.8 H (3.8-10.6) k/uL RBC 3.79 L (4.30-5.90) m/uL Hgb 10.7 L (13.0-17.5) gm/dL Hct 33.5 L (39.0-53.0) % Neutrophils # 12.0 H (1.3-7.7) k/uL Lymphocytes # 0.4 L (1.0-4.8) k/uL Potassium 3.4 L (3.5-5.1) mmol/L BUN 45 H (9-20) mg/dL Creatinine 1.49 H (0.66-1.25) mg/dL Magnesium 2.6 H (1.6-2.3) mg/dL AST 429 H (17-59) U/L ALT 290 H (21-72) U/L Alkaline Phosphatase 153 H (38-126) U/L Total Creatine Kinase 985 H (55-170) U/L CK-MB (CK-2) 6.1 H (0.0-2.4) ng/mL Troponin I 0.051 H* (0.000-0.034) ng/mL Albumin 3.4 L (3.5-5.0) g/dL Assessment and Plan Plan: Possibility of sepsis and shock related to that secondary to pneumonia patient most probably has come in today quite pneumonia considering his severity of illness will continue with peptic is on levofloxacin for today probably will be switched to Rocephin and azithromycin tomorrow. -Acute on chronic hypercapnic respiratory failure secondary to COPD exacerbation patient on BiPAP at this time wean off as tolerated pain continue with systemic steroids. Inhalational treatments. -Acute renal failure is possibly secondary to sepsis can you with IV fluids -Elevated liver enzymes probably secondary to shock liver from hypotension patient presently will be fluid resuscitated if required will be started on pressor support. -Mildly elevated troponin secondary to sepsis and acute renal failure we'll repeat 2 more sets of troponins and EKGs. -Atrial fibrillation presently rate controlled patient is not on any anticoagulation -Coronary artery disease unsure when was his last cardiac catheterization patient is on dual antiplatelet therapy for now will continue with aspirin once we get more information patient will be started on Plavix if needed -Benign prostatic B -Hyperlipidemia Patient's CODE STATUS is DO NOT RESUSCITATE no intubation no chest compressions. Discussed with the daughter
[2018-05-24 18:27] LABS: Glucose,Whole Blood 115 mg/dL (75-99)
[2018-05-24] MEDS: IPRATROPIUM-ALBUTEROL 3 ML NEB INHALATION SCH ×2 (18:29→19:14)
[2018-05-24] MEDS: POTASSIUM CHLORIDE 10 MEQ in WATER FOR INJECTION 1 100ML.BAG IVPB SCH ×2 (20:43→22:35)
[2018-05-24] MEDS: methylPREDNISolone SOD SUCCI 40 MG/ML 1 ML VIAL IV SCH (20:43)
[2018-05-25] MEDS ORDERED: SODIUM CHLORIDE 0.9% 1,000 ML IV ONE (00:07)
[2018-05-25] MEDS: POTASSIUM CHLORIDE 10 MEQ in WATER FOR INJECTION 1 100ML.BAG IVPB SCH ×2 (00:39→04:08)
[2018-05-25] MEDS: SODIUM CHLORIDE 0.9% 1,000 ML IV SCH ×3 (00:39→18:35)
[2018-05-25] MEDS: PIPERACILLIN-TAZOBACTAM 3.375 GM in SODIUM CHLORIDE 0.9% 100 ML IVPB SCH ×3 (00:39→18:35)
[2018-05-25 05:37] LABS: HCT 25.5 % (39.0-53.0); Hypochromasia Slight; MCH 28.4 pg (25.0-35.0); MCHC 31.3 g/dL (31.0-37.0); MCV 90.8 fL (80.0-100.0); Mean Platelet Volume 7.7; Platelet Count 205 k/uL (150-450); RDW 14.7 % (11.5-15.5)
[2018-05-25 06:03] LABS: Albumin 2.5 g/dL (3.5-5.0); Calcium 7.6 mg/dL (8.4-10.2); Potassium 4.7 mmol/L (3.5-5.1); Total Bilirubin 0.8 mg/dL (0.2-1.3)
--- NOTE | 2018-05-25 07:15 | XR ---
EXAMINATION TYPE: XR chest 1V portable DATE OF EXAM: 05/25/2018 HISTORY: Shortness of breath. COMPARISON: 05/24/2018 TECHNIQUE: Single view of the chest is submitted. FINDINGS: Demonstrated are scattered senescent parenchymal change. Superimposed hyperinflation compatible with COPD and underlying emphysematous change. There is interval development of right basilar pneumothorax estimated at approximately 10%. No eviden ce for mediastinal shift. Right perihilar infiltrate persists. The heart is stable. Hilar and mediastinal structures are within normal limits. Degenerative changes are seen of the dorsal spine. IMPRESSION: 1. Interval development of right basilar pneumothorax estimated at 10%. 2. Persistent patchy right perihilar infiltrate. A Red level critical message alert has been initiated for Liz Dillard MD via the [employer] System on 05/25/2018 7:13 AM. This message alert has been sent to Liz Dillard MD vi a the preferences provided by the clinician for the receipt of Radiology Critical Findings. Message I D [id number].
[2018-05-25] MEDS: IPRATROPIUM-ALBUTEROL 3 ML NEB INHALATION SCH ×4 (07:51→19:37)
[2018-05-25] MEDS ORDERED: ASPIRIN 81 MG PO SCH (09:00)
[2018-05-25] MEDS ORDERED: ENOXAPARIN 40 MG/0.4 ML SYRINGE SQ SCH (09:00)
[2018-05-25] MEDS ORDERED: ATORVASTATIN 80 MG TAB PO SCH (09:00)
--- NOTE | 2018-05-25 09:52 | P.CNPUL ---
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 Patient follows with Dr. Reynolds in the pulmonary clinic, baseline FEV1 is 0.55 L or 23% predicted, insistent with severe stage COPD. Patient is on prednisone 5 mg daily, he is on oxygen, DuoNeb nebulized treatments. On 05/24/2018 patient was brought into the emergency department per EMS evaluation of severe shortness of breath, cough, sputum production. Chest x-ray showed chronic emphysematous and parenchymal changes with right infrahilar acute infiltrate and lateral left mid to basilar acute infiltrate and/or atelectasis. Patient was hypothermic, with a temp of 93.4 rectally, he was in severe respiratory distress, he was placed on BiPAP support, currently with pressures 14/7, and FiO2 of 40%. Lab work showed WBC of 12.8, hemoglobin of 10.7, sodium of 139, potassium is 3.4, B1 is 45, creatinine is 1.49, liver enzymes were elevated, AST was 429, ALT was 290, alkaline phosphatase was 153, total CK was 985, CK-MB was 6.1, and troponins were positive at 0.051, 0.038, and 0.047, proBNP was within normal limits at 489. Patient was started on nebulized bronchodilators, empiric antibiotics in the form of Levaquin and Zosyn., IV steroids at 40 mg every 12 hours. He was given IV fluids a total of 3 L, maintenance IV fluids at a rate of 100 ML per hour. CODE STATUS is DO NOT RESUSCITATE. 's morning we' re seeing this patient in the intensive care unit, he opens his eyes to voice, extremely weak, remains on BiPAP support. His follow-up chest x-ray showed interval development of right basilar pneumothorax at 10% and persistent patchy right perihilar infiltrate. Review of Systems All systems: negative Constitutional: Reports weakness, Denies chills, Denies fever Eyes: denies blurred vision, denies pain Ears, nose, mouth and throat: Denies headache, Denies sore throat Cardiovascular: Denies chest pain, Denies shortness of breath Respiratory: Reports cough with sputum, Reports dyspnea, Reports respiratory infections, Denies cough Gastrointestinal: Denies abdominal pain, Denies diarrhea, Denies nausea, Denies vomiting Musculoskeletal: Denies myalgias Integumentary: Denies pruritus, Denies rash Neurological: Denies numbness, Denies weakness Psychiatric: Denies anxiety, Denies depression Endocrine: Denies fatigue, Denies weight change Past Medical History Past Medical History: Atrial Fibrillation, Coronary Artery Disease (CAD), Chest Pain / Angina, COPD, Hyperlipidemia, Prostate Disorder Additional Past Medical History / Comment(s): Pt is very [place]-daughter is concerned because pt will smile and nod his head yes if he doesn't hear you. Other hx: Asbestos exposure, home O2 at 2L/[place] ATC, epistaxis with acute blood loss anemia, ishemic cardiomyopathy, BPH with surgery, UTI, hypotension. History of Any Multi-Drug Resistant Organisms: None Reported Past Surgical History: Coronary Bypass/CABG, Heart Catheterization, Hernia Repair, Prostate Surgery Additional Past Surgical History / Comment(s): CABG about 10 yrs ago in [place], [place], L leg surgery to repair d/t trauma, R inguinal hernia repair, pt thinks he had a TURP. Past Anesthesia/Blood Transfusion Reactions: Postoperative Nausea & Vomiting ( PONV) Past Psychological History: No Psychological Hx Reported Additional Psychological History / Comment(s): Pt resides with his daughter and her spouse. He can walk short distances, but for long distances he uses a wheelchair. His daughter is helpful. Pt no longer drives -leena takes to appts. Pt manages his own medications. He currently has no home care. Smoking Status: Former smoker Past Alcohol Use History: None Reported Additional Past Alcohol Use History / Comment(s): Pt started smoking in 1968 and quit in 2006. Past Drug Use History: None Reported - Past Family History Father Family Medical History: Diabetes Mellitus, Myocardial Infarction ([place]) Additional Family Medical History / Comment(s): Father of a [place] at the age of about 70 yrs. Mother Family Medical History: No Reported History Additional Family Medical History / Comment(s): Mother lived to be 80yrs old. Medications and Allergies Home Medications Medication Instructions Recorded Confirmed Type Aspirin EC [Ecotrin Low Dose] 81 mg PO DAILY 08/20/16 05/24/18 History Atorvastatin [Lipitor] 80 mg PO DAILY 08/20/16 05/24/18 History Clopidogrel Bisulfate [Plavix] 75 mg PO DAILY 08/20/16 05/24/18 History Furosemide [Lasix] 20 mg PO MOWEFR 08/20/16 05/24/18 History Metoprolol Tartrate [Lopressor] 12.5 mg PO DAILY 08/20/16 05/24/18 History Albuterol Nebulized [Ventolin 2.5 mg INHALATION RT-QID PRN 05/24/18 05/24/18 History Nebulized] Ipratropium Nebulized [Atrovent 0.5 mg INHALATION RT-QID PRN 05/24/18 05/24/18 History Nebulized 0.2 MG/ML] Allergies Allergy/AdvReac Type Severity Reaction Status Date / Time Iodinated Contrast- Oral and Allergy Unknown Verified 05/24/18 11:27 IV Dye Physical Exam Vitals: Vital Signs Temp Pulse Resp BP Pulse Ox 05/25/18 08:05 90 05/25/18 07:52 92 05/25/18 07:00 88 25 H 135/64 95 05/25/18 06:00 93 26 H 109/67 97 05/25/18 05:00 87 22 115/56 98 05/25/18 04:00 98.3 F 92 21 117/57 98 05/25/18 03:00 96 27 H 98/51 96 05/25/18 02:00 82 13 104/54 95 05/25/18 01:00 77 16 135/63 96 05/25/18 00:00 84 19 81/67 98 05/24/18 22:38 77 12 109/89 95 05/24/18 22:37 96.1 F L 05/24/18 22:00 82 18 106/78 97 05/24/18 21:00 80 18 90/58 99 05/24/18 20:00 73 12 90/58 99 05/24/18 19:30 93.4 F L 76 17 97/52 99 05/24/18 19:21 77 05/24/18 19:15 75 05/24/18 18:55 16 05/24/18 18:12 75 15 91/59 98 05/24/18 17:30 72 15 93/72 100 05/24/18 17:15 69 13 97/49 99 05/24/18 17:00 76 81/54 05/24/18 16:30 72 13 86/53 100 05/24/18 16:00 70 14 91/59 100 05/24/18 15:57 72 14 85/52 100 05/24/18 15:45 70 05/24/18 15:30 73 14 90/51 100 05/24/18 15:20 70 05/24/18 15:11 84/47 05/24/18 14:52 66 14 95/58 100 05/24/18 14:40 68 13 83/31 100 05/24/18 14:00 68 14 92/58 100 05/24/18 12:29 97.3 F L 05/24/18 12:17 78 05/24/18 12:16 70 14 102/52 99 05/24/18 12:00 76 05/24/18 11:44 74 05/24/18 11:29 80 05/24/18 11:11 27 H 05/24/18 11:05 80 27 H 94/59 88 L Intake and Output 05/24/18 05/25/18 05/25/18 22:59 06:59 14:59 Intake Total 400 2200 200 Output Total 72 140 30 Balance 328 2060 170 Intake: IV 400 2200 200 Piperacillin-Tazobactam 3 100 100 .375 gm In Sodium Chloride 0.9% 100 ml @ 25 mls/hr IVPB ONCE [facility]A Rx# :[id number] Potassium Chloride 10 meq 400 In Water For Injection 1 100ml.bag @ 100 mls/hr IVPB Q1HR [facility] Rx#: [id number] Sodium Chloride 0.9% 1, 300 1700 200 000 ml @ 100 mls/hr IV . Q10H [facility] Rx#:[id number] Output: Urine 72 140 30 Other: Voiding Method Indwelling Catheter Indwelling Catheter Weight 40.3 kg 42.2 kg GENERAL EXAM: Extremely weak, 83-year-old chronically ill looking frail elderly white male in BiPAP support, with pressures of 14 and 7 and 40% HEAD: Normocephalic/atraumatic. EYES: Normal reaction of pupils, equal size. Conjunctiva pink, sclera white. NOSE: Clear with pink turbinates. THROAT: No erythema or exudates. NECK: No masses, no JVD, no thyroid enlargement, no adenopathy. CHEST: No chest wall deformity. Symmetrical expansion. LUNGS: Coarse lung sounds, rhonchi CVS: Regular rate and rhythm, normal S1 and S2, no gallops, no murmurs, no rubs ABDOMEN: Soft, nontender. No hepatosplenomegaly, normal bowel sounds, no guarding or rigidity. EXTREMITIES: No clubbing, no edema, no cyanosis, 2+ pulses and upper and lower extremities. MUSCULOSKELETAL: Muscle strength and tone normal. SPINE: No scoliosis or deformity SKIN: No rashes CENTRAL NERVOUS SYSTEM: Somnolent and oriented -1. No focal deficits, tone is normal in all 4 extremities. Results - Laboratory Findings CBC and BMP: 05/25/18 04:52 05/25/18 04:52 PT/INR, D-dimer PT 10.6 sec (9.0-12.0) 05/24/18 12:30 INR 1.0 (<1.2) 05/24/18 12:30 Abnormal lab findings: Abnormal Labs 05/24/18 05/24/18 05/24/18 12:30 12:30 12:30 WBC 12.8 H RBC 3.79 L Hgb 10.7 L Hct 33.5 L Neutrophils # 12.0 H Lymphocytes # 0.4 L Potassium 3.4 L Chloride Carbon Dioxide BUN 45 H Creatinine 1.49 H Glucose POC Glucose (mg/dL) Calcium Magnesium 2.6 H AST 429 H ALT 290 H Alkaline Phosphatase 153 H Total Creatine Kinase 985 H CK-MB (CK-2) 6.1 H Troponin I 0.051 H* Total Protein Albumin 3.4 L 05/24/18 05/24/18 05/25/18 18:23 18:55 00:28 WBC RBC Hgb Hct Neutrophils # Lymphocytes # Potassium Chloride Carbon Dioxide BUN Creatinine Glucose POC Glucose (mg/dL) 115 H Calcium Magnesium AST ALT Alkaline Phosphatase Total Creatine Kinase CK-MB (CK-2) Troponin I 0.038 H* 0.047 H* Total Protein Albumin 05/25/18 05/25/18 04:52 04:52 WBC 17.0 H RBC 2.80 L Hgb 8.0 L D Hct 25.5 L Neutrophils # Lymphocytes # Potassium Chloride 110 H Carbon Dioxide 20 L BUN 40 H Creatinine 1.36 H Glucose 100 H POC Glucose (mg/dL) Calcium 7.6 L Magnesium AST 308 H ALT 229 H Alkaline Phosphatase Total Creatine Kinase CK-MB (CK-2) Troponin I Total Protein 5.0 L Albumin 2.5 L - Diagnostic Findings Chest x-ray: report reviewed, image reviewed Additional studies: EKG reviewed Assessment and Plan Plan: Assessment: #1. Acute on chronic hypoxemic respiratory failure secondary to right middle lobe and left lower lobe pneumonia #2. Acute exacerbation of chronic COPD secondary to the above #3. Severe stage IV COPD, with underlying FEV1 of 0.55 L or 23% predicted, oxygen dependent at 2 L per nasal cannula at home, and steroid dependent #4. Acute kidney injury #5. Elevated troponins #6. Elevated transaminases #7. Right basilar pneumothorax estimated at 10% #8. History of asbestos exposure #9. Artery artery disease with previous history of coronary bypass grafting and stent placement #10. Ischemic cardiomyopathy #11. Hypertension, hyperlipidemia #12. Benign prostatic hypertrophy #13. History of chronic tobacco dependence, currently in remission #14. Severe protein calorie malnutrition Plan: Continue current antibiotic coverage, continue IV fluids, cultures are pending. Today's blood work shows improvement of liver enzymes, his chest x-ray has been reviewed by Dr. Garrido, and shows interval development of right basilar pneumothorax, continue BiPAP support at current settings. Overall prognosis is quite poor. CODE STATUS is DO NOT RESUSCITATE. Continue supportive care. I performed a history & physical examination of the patient and discussed their management with my nurse practitioner, Louise Yee. I reviewed the nurse practitioner's note and agree with the documented findings and plan of care. Lung sounds are positive for scattered rhonchi. The findings and the impression was discussed with the patient. I attest to the documentation by the nurse practitioner. Time with Patient: Greater than 30
[2018-05-25 10:31] VITALS: BMI 18.1
[2018-05-25] MEDS: methylPREDNISolone SOD SUCCI 40 MG/ML 1 ML VIAL IV SCH (11:23)
[2018-05-25] MEDS ORDERED: ATROPINE OPHTH SOLN 1% 5ML BTL SUBLINGUAL PRN (16:12)
[2018-05-25] MEDS ORDERED: LORazepam 2 MG/ML INJ IV PRN (16:12)
[2018-05-25] MEDS ORDERED: ONDANSETRON 4 MG/2 ML VIAL IVP PRN (16:12)
[2018-05-25] MEDS ORDERED: METOCLOPRAMIDE 5 MG/ML 2 ML VIAL IVP PRN (16:12)
--- NOTE | 2018-05-25 16:51 | P.PN ---
Subjective 83-year-old gentleman admitted for respiratory failure secondary to COPD exacerbation patient on BiPAP yesterday patient has significant improvement today although his overall prognosis is externally poor. Pulmonologists are discussed with the family and patient is presently comfort care. Patient probably will be discharged to hospice facility. Patient has advanced COPD. Patient will Started on comfort measures patient is more awake able to answer my questions daughter at bedside. Active Medications Albuterol/Ipratropium (Duoneb 0.5 Mg-3 Mg/3 Ml Soln) 3 ml INHALATION RT-QID [facility] Last Admin: 05/25/18 15:33 Dose: 3 ml Atropine Sulfate (Isopto Atropine 1% 5ml) 2 drops SUBLINGUAL Q4HR PRN PRN Reason: Excess Secretions Sodium Chloride (Saline 0.9%) 1,000 mls @ 10 mls/hr IV .Q24H [facility] Lorazepam (Ativan) 1 mg IV Q6HR PRN PRN Reason: Anxiety Metoclopramide HCl (Reglan) 10 mg IVP QID PRN PRN Reason: Nausea Morphine Sulfate (Morphine Sulfate (Inj)) 4 mg IVP Q4HR PRN PRN Reason: Pain Ondansetron HCl (Zofran) 4 mg IVP Q8HR PRN PRN Reason: Nausea/emesis Scopolamine (Transderm-Scop 1.5mg/72hr Patch) 1 patch TRANSDERM Q72H [facility] Objective - Vital Signs Vital signs: Vital Signs Temp 98.3 F 05/25/18 16:00 Pulse 87 05/25/18 16:00 Resp 14 05/25/18 16:00 BP 136/62 05/25/18 16:00 Pulse Ox 100 05/25/18 16:00 Intake & Output 05/24/18 05/25/18 05/25/18 18:59 06:59 18:59 Intake Total 2600 1210 Output Total 212 275 Balance 2388 935 Weight 40.3 kg 42.2 kg 42.2 kg Intake: IV 2600 1210 Piperacillin-Tazobactam 3 200 100 .375 gm In Sodium Chloride 0.9% 100 ml @ 25 mls/hr IVPB ONCE STA Rx# :[id number] Potassium Chloride 10 meq 400 In Water For Injection 1 100ml.bag @ 100 mls/hr IVPB Q1HR [facility] Rx#: [id number] Sodium Chloride 0.9% 19990 000 ml @ 100 mls/hr IV . Q10H [facility] Rx#:[id number] Output: Urine 212 275 Other: Voiding Method Indwelling Catheter Indwelling Catheter - Exam PHYSICAL EXAMINATION: GENERAL: Patient is drowsy but arousable, not in any acute distress. Bili cachectic on muscle cannula oxygen HEENT: Pupils are round and equally reacting to light. EOMI. No scleral icterus. No conjunctival pallor. Normocephalic, atraumatic. No pharyngeal erythema. No thyromegaly. CARDIOVASCULAR: S1 and S2 present. No murmurs, rubs, or gallops. PULMONARY: Definitely diminished air entry, expiratory wheezing on exam ABDOMEN: Soft, nontender, nondistended, normoactive bowel sounds. No palpable organomegaly. MUSCULOSKELETAL: No joint swelling or deformity. EXTREMITIES: No cyanosis, clubbing, or pedal edema. NEUROLOGICAL: Gross neurological examination did not reveal any focal deficits. SKIN: No rashes. - Labs CBC & Chem 7: 05/25/18 04:52 05/25/18 04:52 Labs: Abnormal Lab Results - Last 24 Hours (Table) 05/24/18 05/24/18 05/25/18 Range/Units 18:23 18:55 00:28 WBC (3.8-10.6) k/uL RBC (4.30-5.90) m/uL Hgb (13.0-17.5) gm/dL Hct (39.0-53.0) % Chloride (98-107) mmol/L Carbon Dioxide (22-30) mmol/L BUN (9-20) mg/dL Creatinine (0.66-1.25) mg/dL Glucose (74-99) mg/dL POC Glucose (mg/dL) 115 H (75-99) mg/dL Calcium (8.4-10.2) mg/dL AST (17-59) U/L ALT (21-72) U/L Troponin I 0.038 H* 0.047 H* (0.000-0.034) ng/mL Total Protein (6.3-8.2) g/dL Albumin (3.5-5.0) g/dL 05/25/18 05/25/18 Range/Units 04:52 04:52 WBC 17.0 H (3.8-10.6) k/uL RBC 2.80 L (4.30-5.90) m/uL Hgb 8.0 L D (13.0-17.5) gm/dL Hct 25.5 L (39.0-53.0) % Chloride 110 H (98-107) mmol/L Carbon Dioxide 20 L (22-30) mmol/L BUN 40 H (9-20) mg/dL Creatinine 1.36 H (0.66-1.25) mg/dL Glucose 100 H (74-99) mg/dL POC Glucose (mg/dL) (75-99) mg/dL Calcium 7.6 L (8.4-10.2) mg/dL AST 308 H (17-59) U/L ALT 229 H (21-72) U/L Troponin I (0.000-0.034) ng/mL Total Protein 5.0 L (6.3-8.2) g/dL Albumin 2.5 L (3.5-5.0) g/dL Microbiology - Last 24 Hours (Table) 05/24/18 11:18 Blood Culture - Preliminary Blood No Growth after 24 hours Assessment and Plan Plan: Possibility of sepsis and shock related to that secondary to pneumonia patient extremely poor prognosis secondary to his age and advanced COPD patient is presently comfort care will be discharged with hospice tomorrow -Acute on chronic hypercapnic respiratory failure secondary to COPD exacerbation off BiPAP did have improvement in his respiratory status -Acute renal failure is possibly secondary to sepsis -Elevated liver enzymes probably secondary to shock liver from hypotension -Mildly elevated troponin secondary to sepsis and acute renal failure -Atrial fibrillation presently rate controlled patient is not on any anticoagulation -Coronary artery disease -Benign prostatic B -Hyperlipidemia Patient's CODE STATUS is DO NOT RESUSCITATE , comfort measures only
[2018-05-25] MEDS: SCOPOLAMINE 1.5MG/72HR PATCH TRANSDERM SCH (21:39)
[2018-05-26] MEDS ORDERED: ENOXAPARIN 30 MG/0.3 ML SYRINGE SQ SCH (09:00)
[2018-05-26] MEDS ORDERED: LEVOFLOXACIN 750MG-D5W PMX 750 MG in DEXTROSE/WATER 1 150ML.BAG IVPB SCH (14:00)
--- NOTE | 2018-05-26 16:01 | P.PN ---
Subjective 83-year-old gentleman admitted for respiratory failure secondary to COPD exacerbation patient on BiPAP yesterday patient has significant improvement today although his overall prognosis is externally poor. Pulmonologists are discussed with the family and patient is presently comfort care. Patient probably will be discharged to hospice facility. Patient has advanced COPD. Patient will Started on comfort measures patient is more awake able to answer my questions daughter at bedside. 05/26/2018 Patient is presently comfort care measures only will be [facility] tomorrow or Tuesday as hospice. Although patient looks really good on 5 L of oxygen not in respiratory distress does have significant wheezing patient is more awake and I got a chance to discuss with him regarding hospice and he is agreeable. Active Medications Albuterol/Ipratropium (Duoneb 0.5 Mg-3 Mg/3 Ml Soln) 3 ml INHALATION RT-QID [facility] Last Admin: 05/25/18 15:33 Dose: 3 ml Atropine Sulfate (Isopto Atropine 1% 5ml) 2 drops SUBLINGUAL Q4HR PRN PRN Reason: Excess Secretions Sodium Chloride (Saline 0.9%) 1,000 mls @ 10 mls/hr IV .Q24H PONCHO Lorazepam (Ativan) 1 mg IV Q6HR PRN PRN Reason: Anxiety Metoclopramide HCl (Reglan) 10 mg IVP QID PRN PRN Reason: Nausea Morphine Sulfate (Morphine Sulfate (Inj)) 4 mg IVP Q4HR PRN PRN Reason: Pain Ondansetron HCl (Zofran) 4 mg IVP Q8HR PRN PRN Reason: Nausea/emesis Scopolamine (Transderm-Scop 1.5mg/72hr Patch) 1 patch TRANSDERM Q72H [facility] Objective - Vital Signs Vital signs: Vital Signs Temp 97.6 F 05/26/18 06:15 Pulse 57 L 05/26/18 06:15 Resp 16 05/26/18 06:15 BP 92/50 05/26/18 06:15 Pulse Ox 98 05/26/18 07:42 Intake & Output 05/25/18 05/26/18 05/26/18 18:59 06:59 18:59 Intake Total 1230 20 600 Output Total 325 570 Balance 905 -550 600 Weight 42.2 kg 42.2 kg Intake: IV 1230 20 Piperacillin-Tazobactam 3 100 .375 gm In Sodium Chloride 0.9% 100 ml @ 25 mls/hr IVPB ONCE STA Rx# :[id number] Sodium Chloride 0.9% 1, 1130 20 000 ml @ 100 mls/hr IV . Q10H [facility] Rx#:[id number] Oral 600 Output: Urine 325 570 Other: Voiding Method Indwelling Catheter Indwelling Catheter Indwelling Catheter # Voids 4 - Exam PHYSICAL EXAMINATION: GENERAL: Awake alert oriented 2, not in any acute distress. Bili cachectic on nasal cannula oxygen HEENT: Pupils are round and equally reacting to light. EOMI. No scleral icterus. No conjunctival pallor. Normocephalic, atraumatic. No pharyngeal erythema. No thyromegaly. CARDIOVASCULAR: S1 and S2 present. No murmurs, rubs, or gallops. PULMONARY: Definitely diminished air entry, expiratory wheezing on exam ABDOMEN: Soft, nontender, nondistended, normoactive bowel sounds. No palpable organomegaly. MUSCULOSKELETAL: No joint swelling or deformity. EXTREMITIES: No cyanosis, clubbing, or pedal edema. NEUROLOGICAL: Gross neurological examination did not reveal any focal deficits. SKIN: No rashes. - Labs CBC & Chem 7: 05/25/18 04:52 05/25/18 04:52 Labs: Microbiology - Last 24 Hours (Table) 05/24/18 11:18 Blood Culture - Preliminary Blood No Growth after 48 hours Assessment and Plan Plan: Possibility of sepsis and shock related to that secondary to pneumonia patient extremely poor prognosis secondary to his age and advanced COPD patient is presently comfort care [place] and will be discharged to [facility] on Tuesday with hospice. Patient although has significant clinical improvement not in septic shock at this time -Acute on chronic hypercapnic respiratory failure secondary to COPD exacerbation off BiPAP did have improvement in his respiratory status and presently on aspirin cannula oxygen -Acute renal failure is possibly secondary to sepsis no further lab testing is obtained as patient is comfort care only -Elevated liver enzymes probably secondary to shock liver from hypotension -Mildly elevated troponin secondary to sepsis and acute renal failure -Atrial fibrillation presently rate controlled patient is not on any anticoagulation -Coronary artery disease -Benign prostatic B -Hyperlipidemia Patient's CODE STATUS is DO NOT RESUSCITATE , comfort measures only
[2018-05-26] MEDS: SODIUM CHLORIDE 0.9% 1,000 ML IV SCH (17:17)
[2018-05-27] MEDS: SODIUM CHLORIDE 0.9% 1,000 ML IV SCH (17:26)
--- NOTE | 2018-05-27 19:40 | PN ---
PROGRESS NOTE DATE OF SERVICE: 05/27/2018 This 83-year-old gentleman who was admitted with pneumonia and possible sepsis is being closely monitored. Patient is severely emaciated. The patient also had acute on chronic hypoxic hypercapnic respiratory failure. Dr. Garrido is following the patient closely. The most recent chest x-ray done showed development of right base pneumonia and patchy right perihilar infiltrate also. PAST MEDICAL HISTORY: Reviewed. REVIEW OF SYSTEMS: The patient is mildly confused. CURRENT MEDICATIONS ARE: 1. 2 drops q.4h. 2. Ativan q.4 hours. 3. Morphine. 4. Transderm patch. 5. Saline. PHYSICAL EXAM: Patient is confused. Pulse is 89, blood pressure 126/70, respiration 16, temperature 98.7, pulse ox 100 percent on 5 L. HEENT: Conjunctivae normal. Oral mucosa moist. NECK: No jugular venous distention. No lymph node enlargement. CARDIOVASCULAR: S1, S2. RESPIRATORY: Diminished breath sounds at the bases. Bilateral scattered rhonchi and crackles. ABDOMEN: Soft, nontender. LEGS: No edema, no swelling. NERVOUS SYSTEM: Diffusely weak. LABS: At this time WBC 17, hemoglobin is 8, creatinine is 1.36. ASSESSMENT: 1. Right lower lobe pneumonia with possible sepsis. 2. Severe sepsis and septic shock. 3. Chronic obstructive pulmonary disease acute exacerbation with acute on chronic hypoxic hypercapnic respiratory failure. 4. Acute renal failure. 5. Elevated LFTs. 6. Elevated troponin secondary to sepsis and renal failure. 7. Atrial fibrillation. 8. History of coronary artery disease. 9. History of benign prostatic hypertrophy. 10.Hyperlipidemia. 11.NO CODE, NO CPR, NO VENT. 12.Comfort measures. RECOMMENDATION: In this 83-year-old gentleman who presented with multiple complex medical issues , at this time I recommend to continue current management, and continue symptomatic treatment, continue with comfort measures as mentioned earlier. The prognosis is extremely guarded and continue to monitor. See orders for details. MMODL / IJN: [id number] / MTDD
[2018-05-28] MEDS: SCOPOLAMINE 1.5MG/72HR PATCH TRANSDERM SCH (16:54)
[2018-05-28] MEDS: SODIUM CHLORIDE 0.9% 1,000 ML IV SCH (16:56)
--- NOTE | 2018-05-28 20:12 | PN ---
PROGRESS NOTE DATE OF SERVICE: 05/28/2018 This 83-year-old gentleman who was admitted with pneumonia is on palliative care at this time. The patient is NO CODE, NO CPR, NO VENT. No chest pain. No palpitations. No fever. PHYSICAL EXAM: Alert and oriented x2. Pulse 91, blood pressure 120/75, respiration 18, temperature 97.4, pulse ox 100 percent on room air. HEENT: Conjunctivae normal. Oral mucosa moist. NECK: No jugular venous distention. No lymph node enlargement. CARDIOVASCULAR: S1, S2. RESPIRATORY: Diminished breath sounds at the bases. A few scattered rhonchi and crackles. ABDOMEN: Soft, nontender. No mass palpable. LEGS: No edema, no swelling. NERVOUS SYSTEM: Higher function mentioned earlier. Moves all four limbs. No focal deficits. LYMPHATICS: No lymph nodes in neck or axilla. SKIN: No rash. LABS: WBC is 7.1, hemoglobin 8 and the creatinine is 1.36. ASSESSMENT: 1. Right lower lobe pneumonia with possible sepsis. 2. Severe sepsis, septic shock. 3. Chronic obstructive pulmonary disease exacerbation acute on chronic hypoxic hypercapnic respiratory failure. 4. Acute renal failure. 5. Elevated LFTs. 6. Elevated troponin secondary to sepsis. 7. Renal failure. 8. Atrial fibrillation. 9. History of CAD. 10.History of BPH. 11.History of hyperlipidemia. 12.NO CODE, NO CPR, NO VENT. 13.Possible palliative care. RECOMMENDATIONS: Continue current management, continue symptomatic treatment, social work evaluation, possible ECF rehab versus palliative care. Guarded prognosis. Further recommendations to follow. MMODL / IJN: [id number] /
[2018-05-29] MEDS ORDERED: IPRATROPIUM 0.5 MG/2.5 ML NEBU INHALATION PRN (11:26)
[2018-05-29] MEDS ORDERED: ALBUTEROL NEBULIZED 2.5 MG/3 ML INHALATION PRN (11:26)
[2018-05-29] MEDS ORDERED: FUROSEMIDE 20 MG TAB PO SCH (11:30)
--- NOTE | 2018-05-29 12:34 | P.DS ---
Providers Date of admission: 05/24/18 13:20 Expected date of discharge: 05/29/18 Attending physician: Liz Dillard Consults: 05/24/18 17:25 Consult Physician Routine Consulting Provider: Honey Sommer Consult Reason/Comments: Sepsis and COPD Do you want consulting provider notified?: Yes Primary care physician: Nasir Henrik [facility] Course: Final Diagnoses: -Right lower lobe pneumonia with severe sepsis, septic shock -Acute on chronic hypercapnic respiratory failure secondary to COPD exacerbation -Acute renal failure -Elevated liver enzymes probably secondary to shock liver from hypotension -Mildly elevated troponin secondary to sepsis and acute renal failure -Atrial fibrillation -Coronary artery disease -Benign prostatic B -Hyperlipidemia -No code, no CPR, no vent Hospital course:83-year-old gentleman admitted for respiratory failure secondary to COPD exacerbation. Evaluated by pulmonary. Significant improvement. Evaluated by a pulmonary. Patient is no code, no CPR, no vent. Cleared by pulmonary for discharge. Palliative care versus ECF subacute rehab discussed. Patient is being discharged to subacute rehab in a stable condition with guarded prognosis. Also discussed with patient recommendations of palliative care with no return to hospital if patient should further decline. EXAMINATION: GENERAL: Awake alert oriented 2, not in any acute distress. CARDIOVASCULAR: S1 and S2 present. No murmurs, rubs, or gallops. PULMONARY: Definitely diminished air entry, few scattered rhonchi and crackles ABDOMEN: Soft, nontender, nondistended, normoactive bowel sounds. No palpable organomegaly. NEUROLOGICAL: Gross neurological examination did not reveal any focal deficits. The impression and plan of care has been dictated as directed. : I performed a history and examination of this patient, discussed the same with the dictator. I agree with the dictator's note ,documented as a scribe. Any additional findings or plans will be noted. Time taken: 35 minutes Patient Condition at Discharge: Stable Plan - Discharge Summary Discharge Rx Participant: No New Discharge Prescriptions: New Albuterol Nebulized [Ventolin Nebulized] 2.5 mg INHALATION RT-QID PRN nebu PRN Reason: Shortness Of Breath Atropine Ophth Soln 1% 5Ml [Isopto Atropine 1% 5Ml] 2 drops SUBLINGUAL Q4HR PRN bottle PRN Reason: Excess Secretions Scopolamine 1.5MG/72Hr Patch [TransDerm Scop] 1 patch TRANSDERM Q72H patch Continue Metoprolol Tartrate [Lopressor] 12.5 mg PO DAILY Clopidogrel Bisulfate [Plavix] 75 mg PO DAILY Atorvastatin [Lipitor] 80 mg PO DAILY Aspirin EC [Ecotrin Low Dose] 81 mg PO DAILY Furosemide [Lasix] 20 mg PO MOWEFR Changed Ipratropium Nebulized [Atrovent Nebulized 0.2 MG/ML] 0.5 mg INHALATION RT- QID #0 Discontinued Albuterol Nebulized [Ventolin Nebulized] 2.5 mg INHALATION RT-QID PRN PRN Reason: Shortness Of Breath Discharge Medication List Aspirin EC [Ecotrin Low Dose] 81 mg PO DAILY 08/20/16 [History] Atorvastatin [Lipitor] 80 mg PO DAILY 08/20/16 [History] Clopidogrel Bisulfate [Plavix] 75 mg PO DAILY 08/20/16 [History] Furosemide [Lasix] 20 mg PO MOWEFR 08/20/16 [History] Metoprolol Tartrate [Lopressor] 12.5 mg PO DAILY 08/20/16 [History] Albuterol Nebulized [Ventolin Nebulized] 2.5 mg INHALATION RT-QID PRN nebu [Rx] Atropine Ophth Soln 1% 5Ml [Isopto Atropine 1% 5Ml] 2 drops SUBLINGUAL Q4HR PRN bottle 05/29/18 [Rx] Ipratropium Nebulized [Atrovent Nebulized 0.2 MG/ML] 0.5 mg INHALATION RT-QID # 0 05/29/18 [Rx] Scopolamine 1.5MG/72Hr Patch [TransDerm Scop] 1 patch TRANSDERM Q72H patch [Rx] Follow up Appointment(s)/Referral(s): Eder Louis MD [REFERRING] - 3 Days (while at [facility]) Nasir Chester MD [Primary Care Provider] - 1 Week (after dc from [facility]) Activity/Diet/Wound Care/Special Instructions: [facility] DIet:Regular Activity: as tolerated CBC,BMP in 3 days Discharge Disposition: TRANSFER TO [facility]
[2018-05-29] MEDS: IPRATROPIUM-ALBUTEROL 3 ML NEB INHALATION SCH ×2 (12:39→16:09)
[2018-05-29 16:30] VITALS: BP 120/69; PULSE 59; RESP 18; TEMP 98.2
[2018-05-30] MEDS ORDERED: CLOPIDOGREL 75 MG TAB PO SCH (09:00)
== END 2018-05-29 16:28 | DRG 871 ==
LOC: EC 10:53 → 3SCARD 13:20 → 2SICU 17:44 → 4MS4W 05-25 22:24
PROVIDERS: ADMIT Hospitalist; ATTEND Hospitalist
PROC: 5A09457 Assistance with Respiratory Ventilation, 24-96 Consecutive Hours, Continuous Positive Airway Pressure (ICD-10-PCS; principal; 2018-05-24)
DX: A41.9 Sepsis, unspecified organism (principal); J18.9 Pneumonia, unspecified organism; J96.22 Acute and chronic respiratory failure with hypercapnia; R65.21 Severe sepsis with septic shock; K72.00 Acute and subacute hepatic failure without coma; E43 Unspecified severe protein-calorie malnutrition; J96.21 Acute and chronic respiratory failure with hypoxia; J44.1 Chronic obstructive pulmonary disease with (acute) exacerbation; J44.0 Chronic obstructive pulmonary disease with (acute) lower respiratory infection; N17.9 Acute kidney failure, unspecified; J96.11 Chronic respiratory failure with hypoxia; J93.9 Pneumothorax, unspecified; R64 Cachexia; I25.5 Ischemic cardiomyopathy; E78.5 Hyperlipidemia, unspecified; N40.0 Benign prostatic hyperplasia without lower urinary tract symptoms; H91.90 Unspecified hearing loss, unspecified ear; Z66 Do not resuscitate; Z99.81 Dependence on supplemental oxygen; Z95.1 Presence of aortocoronary bypass graft; I25.2 Old myocardial infarction; Z87.891 Personal history of nicotine dependence; Z82.49 Family history of ischemic heart disease and other diseases of the circulatory system; Z83.3 Family history of diabetes mellitus; Z79.02 Long term (current) use of antithrombotics/antiplatelets; Z79.82 Long term (current) use of aspirin; Z79.899 Other long term (current) drug therapy; Z87.440 Personal history of urinary (tract) infections; E78.00 Pure hypercholesterolemia, unspecified; F41.9 Anxiety disorder, unspecified; I11.0 Hypertensive heart disease with heart failure; I25.10 Atherosclerotic heart disease of native coronary artery without angina pectoris; I50.9 Heart failure, unspecified; I48.2 Chronic atrial fibrillation; Z51.5 Encounter for palliative care; Z77.090 Contact with and (suspected) exposure to asbestos; Z79.52 Long term (current) use of systemic steroids
CPT/HCPCS: 36415; 71045; 80053; 82550; 82553; 83735; 83880; 84484; 85025; 85027; 85610; 85730; 87040; 93005; 94640; 94644; 94660; 94760; 96360; 96365; 96366; 96367; 96375; 99291